=== PATIENT | male | born 1970 | race Caucasian/White ===

== ENCOUNTER 2017-11-30 00:30 | Inpatient (IN) | payer SELFPAY ==
[~2017-11-30] VITALS: Ht 175.3 cm; Wt 87.8 kg
[2017-11-30 01:20] LABS: BASO # 0.2 x10^3/uL (0.0-0.2); BASO % 0 % (0-3); EOS # 0.1 x10^3/uL (0.0-0.7); EOS % 0 % (0-3); HEMATOCRIT 40.7 % (39.0-53.0); HEMOGLOBIN 14.4 g/dL (13.0-17.5); LYMPH # 1.6 x10^3/uL (1.0-4.8); LYMPH % 5 % (24-48); MEAN CORPUSCULAR HEMOGLOBIN 32 pg (25-35); MEAN CORPUSCULAR HGB CONC 35 g/dL (31-37); MEAN CORPUSCULAR VOLUME 89 fL (79-100); MONO # 1.4 x10^3/uL (0.0-1.1); MONO % 4 % (0-9); NEUT # 32.2 x10^3uL (1.8-7.7); NEUT % 91 % (31-73); PLATELET COUNT 372 x10^3/uL (140-400); RED BLOOD COUNT 4.55 x10^6/uL (4.30-5.70); RED CELL DISTRIBUTION WIDTH 13.3 % (11.5-14.5); WHITE BLOOD COUNT 35.5 x10^3/uL (4.0-11.0)
[2017-11-30 01:26] LABS: CALCIUM 9.8 mg/dL (8.5-10.1); GFR 80.8; POTASSIUM 3.2 mmol/L (3.5-5.1)
[2017-11-30] MEDS ORDERED: VANCOMYCIN 2 GM in IV NORMAL SALINE 500ML BAG 500 ML IV ONE (01:30)
[2017-11-30] MEDS ORDERED: ONDANSETRON PF 4 MG/2 ML VIAL. IV ONE (01:30)
[2017-11-30] MEDS ORDERED: IV NORMAL SALINE 1000ML BAG 1,000 ML IV ONE ×3 (01:30→02:00)
[2017-11-30] MEDS ORDERED: fentaNYL PF VIAL 100 MCG/2 ML VIAL IM ONE (01:30)
[2017-11-30 01:31] LABS: ALBUMIN 3.4 g/dL (3.4-5.0); ALBUMIN/GLOBULIN RATIO 0.8 (1.0-1.7); TOTAL BILIRUBIN 0.4 mg/dL (0.2-1.0); TOTAL PROTEIN 7.9 g/dL (6.4-8.2)
[2017-11-30 01:42] LABS: % BANDS 6 % (0-9); % LYMPHS 5 % (24-48); % MONOS 3 % (0-10); % SEGS 86 % (35-66); PLT ESTIMATE ADEQUATE (ADEQUATE); TOXIC GRANULATION SLIGHT
[2017-11-30] MEDS ORDERED: PIP/TAZO PER PHARMACY MC PRN (01:45)
[2017-11-30] MEDS ORDERED: PIPERACILLIN/TAZOBACTAM 4.5 GM in IV NORMAL SALINE 100ML 100 ML IV ONE (02:00)
--- NOTE | 2017-11-30 02:09 | PHYS DOC ---
Past Medical History Past Medical History: Hypertension Past Surgical History: Other Additional Past Surgical Histo: ORBITAL SX Additional Information: 1 PPD Alcohol Use: Rarely Drug Use: None Adult General Chief Complaint Chief Complaint: Cellulitis HPI HPI Patient is a 47 year old male since with redness, swelling, with open weeping lesions to left lower extremity, below calf region. Symptoms began over a week ago. Patient states he has been itching and scratching region. Reports fever, chills sweats and nausea. Patient's tachycardic and febrile in the emergency department. Denies history of MRSA, cellulitis diabetes. No other acute symptoms or complaints. [] Review of Systems Review of Systems ROS as per HPI All other systems were reviewed and found to be within normal limits, except as documented in this note. Current Medications Current Medications Current Medications Medications (Trade) Dose Ordered Sig/Lety Start Time Stop Time Status Last Admin Dose Admin Fentanyl Citrate (Fentanyl 2ml Vial) 75 mcg 1X ONCE 11/30/17 01:30 11/30/17 01:31 DC 11/30/17 01:16 75 MCG Ondansetron HCl (Zofran) 4 mg 1X ONCE 11/30/17 01:30 11/30/17 01:31 DC 11/30/17 01:16 4 MG Piperacillin Sod/ Tazobactam Sod (Zosyn Per Pharmacy) 1 each PRN DAILY PRN 11/30/17 01:45 Piperacillin Sod/ Tazobactam Sod 4.5 gm/Sodium Chloride 100 ml @ 200 mls/hr 1X ONCE 11/30/17 02:00 11/30/17 02:29 Sodium Chloride 1,000 ml @ 1,000 mls/hr 1X ONCE 11/30/17 02:00 11/30/17 02:59 Vancomycin HCl 2 gm/Sodium Chloride 500 ml @ 250 mls/hr 1X ONCE 11/30/17 01:30 11/30/17 03:29 11/30/17 01:15 250 MLS/HR Allergies Allergies Allergies Coded Allergies Type Severity Reaction Last Updated Verified No Known Drug Allergies 08/18/13 No Physical Exam Physical Exam Constitutional: Well developed, well nourished, no acute distress, non-toxic appearance. [] HENT: Normocephalic, atraumatic, bilateral external ears normal, oropharynx moist, no oral exudates, nose normal. [] Eyes: PERRLA, EOMI, conjunctiva normal, no discharge. [] Neck: Normal range of motion, no tenderness, supple, no stridor. [] Cardiovascular:Tachycardia [] Lungs & Thorax: Bilateral breath sounds clear to auscultation [] Abdomen: Bowel sounds normal, soft, no tenderness. [] Skin: Warm, dry, no erythema, no rash. [] Back: No tenderness, no CVA tenderness. [] Extremities: No tenderness, tenderness, swelling, redness with multiple superficial weeping ulcers to left posterior distal leg. No soft tissue sloughing. Swelling extends from Region to ankle. [] Neurologic: Alert and oriented X 3, normal motor function, normal sensory function, no focal deficits noted. [] Psychologic: Affect normal, judgement normal, mood normal. [] Current Patient Data Vital Signs Vital Signs Date Time Temp Pulse Resp B/P (MAP) Pulse Ox O2 Delivery O2 Flow Rate FiO2 11/30/17 01:16 31 96 Room Air 11/30/17 00:46 98.7 135 128/96 (107) 98.7 Lab Values Laboratory Tests Test 11/30/17 01:04 White Blood Count 35.5 x10^3/uL (4.0-11.0) H Red Blood Count 4.55 x10^6/uL (4.30-5.70) Hemoglobin 14.4 g/dL (13.0-17.5) Hematocrit 40.7 % (39.0-53.0) Mean Corpuscular Volume 89 fL (79-100) Mean Corpuscular Hemoglobin 32 pg (25-35) Mean Corpuscular Hemoglobin Concent 35 g/dL (31-37) Red Cell Distribution Width 13.3 % (11.5-14.5) Platelet Count 372 x10^3/uL (140-400) Neutrophils (%) (Auto) 91 % (31-73) H Lymphocytes (%) (Auto) 5 % (24-48) L Monocytes (%) (Auto) 4 % (0-9) Eosinophils (%) (Auto) 0 % (0-3) Basophils (%) (Auto) 0 % (0-3) Neutrophils # (Auto) 32.2 x10^3uL (1.8-7.7) H Lymphocytes # (Auto) 1.6 x10^3/uL (1.0-4.8) Monocytes # (Auto) 1.4 x10^3/uL (0.0-1.1) H Eosinophils # (Auto) 0.1 x10^3/uL (0.0-0.7) Basophils # (Auto) 0.2 x10^3/uL (0.0-0.2) Segmented Neutrophils % 86 % (35-66) H Band Neutrophils % 6 % (0-9) Lymphocytes % 5 % (24-48) L Monocytes % 3 % (0-10) Toxic Granulation Slight Platelet Estimate Adequate (ADEQUATE) Sodium Level 139 mmol/L (136-145) Potassium Level 3.2 mmol/L (3.5-5.1) L Chloride Level 101 mmol/L (98-107) Carbon Dioxide Level 27 mmol/L (21-32) Anion Gap 11 (6-14) Blood Urea Nitrogen 13 mg/dL (8-26) Creatinine 1.0 mg/dL (0.7-1.3) Estimated GFR (Cockcroft-Gault) 80.8 BUN/Creatinine Ratio 13 (6-20) Glucose Level 106 mg/dL (70-99) H Calcium Level 9.8 mg/dL (8.5-10.1) Total Bilirubin 0.4 mg/dL (0.2-1.0) Aspartate Amino Transferase (AST) 16 U/L (15-37) Alanine Aminotransferase (ALT) 37 U/L (16-63) Alkaline Phosphatase 117 U/L (46-116) H C-Reactive Protein, Quantitative 34.0 mg/L (0-3.3) H Total Protein 7.9 g/dL (6.4-8.2) Albumin 3.4 g/dL (3.4-5.0) Albumin/Globulin Ratio 0.8 (1.0-1.7) L Laboratory Tests 11/30/17 01:04 Laboratory Tests 11/30/17 01:04 EKG EKG [] Radiology/Procedures Radiology/Procedures [XR Tib/fib: No gas appreciated in the soft tissue] Course & Med Decision Making Course & Med Decision Making Pertinent Labs and Imaging studies reviewed. (See chart for details) Sepsis with Left leg soft tissue infection. IVF, IV abx started. BP stable. Dr. Amezquita to admit. Courtesy bridge orders written.] Dragon Disclaimer Dragon Disclaimer This electronic medical record was generated, in whole or in part, using a voice recognition dictation system. Departure Departure Impression: Primary Impression: Left leg cellulitis Additional Impression: Sepsis Disposition: ADMITTED INPATIENT Admitting Physician: Other () Condition: IMPROVED Referrals: NON,STAFF (PCP) Problem Qualifiers PAL BAEZA DO Nov 30, 2017 02:09
[2017-11-30] MEDS ORDERED: levOFLOXacin PER PHARMACY. MC PRN (02:45)
[2017-11-30] MEDS ORDERED: ONDANSETRON PF 4 MG/2 ML VIAL. IV PRN (02:45)
[2017-11-30] MEDS ORDERED: MORPHINE SULFATE 4 MG/ML VIAL. IV PRN (02:45)
[2017-11-30 03:56] VITALS: BP 130/71
[2017-11-30] MEDS: VANCOMYCIN PER PHARMACY MC PRN ×2 (04:02→14:08)
[2017-11-30 07:36] VITALS: BP 109/59
--- NOTE | 2017-11-30 08:35 | RAD ---
Examination: 2 views of the left tibia and fibula HISTORY: History of lower leg infection COMPARISON: None available FINDINGS: The alignment of the tibia and fibula grossly appears unremarkable. There is no acute fracture or dislocation identified. Mild soft tissue swelling identified in the lower leg. IMPRESSION: 1. No acute osseous findings. 2. Mild soft tissue swelling identified in the lower leg likely secondary to edema or cellulitis. Electronically signed by: Bartolome Barry MD (11/30/2017 8:31 AM) [facility]
[2017-11-30] MEDS: IV NORMAL SALINE 1000ML BAG 1,000 ML IV SCH ×4 (09:11→19:44)
[2017-11-30] MEDS: PIPERACILLIN/TAZOBACTAM 3.375 GM in IV NORMAL SALINE 50ML 50 ML IV SCH ×3 (09:37→20:37)
[2017-11-30] MEDS: LACTOBACILLUS RHAMNOSUS GG 1 CAPSULE. PO SCH ×2 (09:37→20:37)
--- NOTE | 2017-11-30 11:18 | PDOC1 ---
History and Physical Date of Admission Date of Admission 11/30/17 Identification/Chief Complaint Chief Complaint cellulitis Source Source: Chart review, Patient History of Present Illness History of Present Illness HPI Patient is a 47 year old male presented to ER with redness, swelling, with open weeping lesions to left lower extremity, below calf region. Symptoms began over a week ago. Patient states he has been itching and scratching region. Reports fever, chills sweats and nausea. Patient's tachycardic and febrile in the emergency department. Denies history of MRSA, cellulitis or diabetes no bites no travel , he looked ill and dehydrated Past Medical History Cardiovascular: HTN Pulmonary: COPD GI: No pertinent hx Heme/Onc: No pertinent hx Hepatobiliary: No pertinent hx Psych: Anxiety Infectious disease: No pertinent hx ENT: No pertinent hx Endocrine: No pertinent hx Past Surgical History Past Surgical History: Other (orbital surgery) Social History Smoke: 1 pack per day ALCOHOL: rare Drugs: None Current Problem List Problem List Problems Medical Problems: (1) Left leg cellulitis Status: Acute (2) Sepsis Status: Acute Current Medications Current Medications Current Medications Medications (Trade) Dose Ordered Sig/Lety Start Time Stop Time Status Last Admin Dose Admin Fentanyl Citrate (Fentanyl 2ml Vial) 75 mcg 1X ONCE 11/30/17 01:30 11/30/17 01:31 DC 11/30/17 01:16 75 MCG Influenza Virus Vaccine (Afluria Trivalent [id number] Syringe) 0.5 ml ONCE ONCE 11/30/17 09:00 11/30/17 09:01 DC Lactobacillus Rhamnosus (Culturelle) 1 cap BID 11/30/17 09:00 11/30/17 09:37 1 CAP Levofloxacin/ Dextrose 100 ml @ 100 mls/hr Q24H 12/01/17 05:00 Levofloxacin/ Dextrose (Levaquin Per Pharmacy) 1 each PRN DAILY PRN 11/30/17 02:45 Morphine Sulfate (Morphine Sulfate) 4 mg PRN Q2HR PRN 11/30/17 02:45 12/01/17 02:44 Ondansetron HCl (Zofran) 4 mg PRN Q8HRS PRN 11/30/17 02:45 12/01/17 02:44 Piperacillin Sod/ Tazobactam Sod (Zosyn Per Pharmacy) 1 each PRN DAILY PRN 11/30/17 01:45 Piperacillin Sod/ Tazobactam Sod 3.375 gm/Sodium Chloride 50 ml @ 100 mls/hr Q6HRS 11/30/17 06:00 11/30/17 09:37 100 MLS/HR Piperacillin Sod/ Tazobactam Sod 4.5 gm/Sodium Chloride 100 ml @ 200 mls/hr 1X ONCE 11/30/17 02:00 11/30/17 02:29 DC 11/30/17 02:37 200 MLS/HR Sodium Chloride 1,000 ml @ 150 mls/hr Q6H40M 11/30/17 02:31 12/01/17 02:30 11/30/17 09:11 150 MLS/HR Vancomycin HCl (Vanco Per Pharmacy) 1 each PRN DAILY PRN 11/30/17 02:45 11/30/17 04:02 1 EACH Vancomycin HCl (Vancomycin Trough Level) 1 each 1X ONCE 12/01/17 12:30 12/01/17 12:31 Vancomycin HCl 1.25 gm/Sodium Chloride 250 ml @ 167 mls/hr Q12H 11/30/17 13:00 Cancel Vancomycin HCl 1.5 gm/Sodium Chloride 500 ml @ 250 mls/hr Q12H 11/30/17 13:00 Vancomycin HCl 2 gm/Sodium Chloride 500 ml @ 250 mls/hr 1X ONCE 11/30/17 01:30 11/30/17 03:29 DC 11/30/17 01:15 250 MLS/HR Allergies Allergies Allergies Coded Allergies Type Severity Reaction Last Updated Verified No Known Drug Allergies 08/18/13 No ROS Review of System CONSTITUTIONAL: + fever and chills EYES: No recent changes SKIN: erythema and swelling oozing LLE below knee CARDIOVASCULAR: No chest pain, syncope, palpitations, RESPIRATORY: No SOB or cough GASTROINTESTINAL: No nausea, vomiting or abdominal pain, + decrease appetite NEUROLOGICAL: No headaches o+weakness ENDOCRINE: + chills GENITOURINARY: No urgency or frequency of urination MUSCULOSKELETAL: No back pain or joint pain Physical Exam Physical Exam GEN.: No apparent distress. Alert and oriented. HEENT: Head is normocephalic, atraumatic NECK: Supple. LUNGS: Clear to auscultation. HEART: RRR, S1, S2 present. Peripheral pulses intact ABDOMEN: Soft, nontender. Positive bowel sounds. EXTREMITIES: swelling oozing, erythema LLE. NEUROLOGIC: Normal speech, normal tone PSYCHIATRIC: Normal affect, normal mood. SKIN: No ulcerations Vitals Vitals Vital Signs Date Time Temp Pulse Resp B/P (MAP) Pulse Ox O2 Delivery O2 Flow Rate FiO2 11/30/17 08:00 Room Air 11/30/17 07:36 99.3 76 18 109/59 (76) 91 99.3 Labs Labs Laboratory Tests Test 11/30/17 01:04 White Blood Count 35.5 x10^3/uL (4.0-11.0) Red Blood Count 4.55 x10^6/uL (4.30-5.70) Hemoglobin 14.4 g/dL (13.0-17.5) Hematocrit 40.7 % (39.0-53.0) Mean Corpuscular Volume 89 fL (79-100) Mean Corpuscular Hemoglobin 32 pg (25-35) Mean Corpuscular Hemoglobin Concent 35 g/dL (31-37) Red Cell Distribution Width 13.3 % (11.5-14.5) Platelet Count 372 x10^3/uL (140-400) Neutrophils (%) (Auto) 91 % (31-73) Lymphocytes (%) (Auto) 5 % (24-48) Monocytes (%) (Auto) 4 % (0-9) Eosinophils (%) (Auto) 0 % (0-3) Basophils (%) (Auto) 0 % (0-3) Neutrophils # (Auto) 32.2 x10^3uL (1.8-7.7) Lymphocytes # (Auto) 1.6 x10^3/uL (1.0-4.8) Monocytes # (Auto) 1.4 x10^3/uL (0.0-1.1) Eosinophils # (Auto) 0.1 x10^3/uL (0.0-0.7) Basophils # (Auto) 0.2 x10^3/uL (0.0-0.2) Segmented Neutrophils % 86 % (35-66) Band Neutrophils % 6 % (0-9) Lymphocytes % 5 % (24-48) Monocytes % 3 % (0-10) Toxic Granulation Slight Platelet Estimate Adequate (ADEQUATE) Sodium Level 139 mmol/L (136-145) Potassium Level 3.2 mmol/L (3.5-5.1) Chloride Level 101 mmol/L (98-107) Carbon Dioxide Level 27 mmol/L (21-32) Anion Gap 11 (6-14) Blood Urea Nitrogen 13 mg/dL (8-26) Creatinine 1.0 mg/dL (0.7-1.3) Estimated GFR (Cockcroft-Gault) 80.8 BUN/Creatinine Ratio 13 (6-20) Glucose Level 106 mg/dL (70-99) Lactic Acid Level 1.4 mmol/L (0.4-2.0) Calcium Level 9.8 mg/dL (8.5-10.1) Total Bilirubin 0.4 mg/dL (0.2-1.0) Aspartate Amino Transf (AST/SGOT) 16 U/L (15-37) Alanine Aminotransferase (ALT/SGPT) 37 U/L (16-63) Alkaline Phosphatase 117 U/L (46-116) Creatine Kinase 87 U/L (39-308) C-Reactive Protein, Quantitative 34.0 mg/L (0-3.3) Total Protein 7.9 g/dL (6.4-8.2) Albumin 3.4 g/dL (3.4-5.0) Albumin/Globulin Ratio 0.8 (1.0-1.7) Laboratory Tests Test 11/30/17 01:04 White Blood Count 35.5 x10^3/uL (4.0-11.0) Red Blood Count 4.55 x10^6/uL (4.30-5.70) Hemoglobin 14.4 g/dL (13.0-17.5) Hematocrit 40.7 % (39.0-53.0) Mean Corpuscular Volume 89 fL (79-100) Mean Corpuscular Hemoglobin 32 pg (25-35) Mean Corpuscular Hemoglobin Concent 35 g/dL (31-37) Red Cell Distribution Width 13.3 % (11.5-14.5) Platelet Count 372 x10^3/uL (140-400) Neutrophils (%) (Auto) 91 % (31-73) Lymphocytes (%) (Auto) 5 % (24-48) Monocytes (%) (Auto) 4 % (0-9) Eosinophils (%) (Auto) 0 % (0-3) Basophils (%) (Auto) 0 % (0-3) Neutrophils # (Auto) 32.2 x10^3uL (1.8-7.7) Lymphocytes # (Auto) 1.6 x10^3/uL (1.0-4.8) Monocytes # (Auto) 1.4 x10^3/uL (0.0-1.1) Eosinophils # (Auto) 0.1 x10^3/uL (0.0-0.7) Basophils # (Auto) 0.2 x10^3/uL (0.0-0.2) Segmented Neutrophils % 86 % (35-66) Band Neutrophils % 6 % (0-9) Lymphocytes % 5 % (24-48) Monocytes % 3 % (0-10) Toxic Granulation Slight Platelet Estimate Adequate (ADEQUATE) Sodium Level 139 mmol/L (136-145) Potassium Level 3.2 mmol/L (3.5-5.1) Chloride Level 101 mmol/L (98-107) Carbon Dioxide Level 27 mmol/L (21-32) Anion Gap 11 (6-14) Blood Urea Nitrogen 13 mg/dL (8-26) Creatinine 1.0 mg/dL (0.7-1.3) Estimated GFR (Cockcroft-Gault) 80.8 BUN/Creatinine Ratio 13 (6-20) Glucose Level 106 mg/dL (70-99) Lactic Acid Level 1.4 mmol/L (0.4-2.0) Calcium Level 9.8 mg/dL (8.5-10.1) Total Bilirubin 0.4 mg/dL (0.2-1.0) Aspartate Amino Transf (AST/SGOT) 16 U/L (15-37) Alanine Aminotransferase (ALT/SGPT) 37 U/L (16-63) Alkaline Phosphatase 117 U/L (46-116) Creatine Kinase 87 U/L (39-308) C-Reactive Protein, Quantitative 34.0 mg/L (0-3.3) Total Protein 7.9 g/dL (6.4-8.2) Albumin 3.4 g/dL (3.4-5.0) Albumin/Globulin Ratio 0.8 (1.0-1.7) VTE Prophylaxis Ordered VTE Prophylaxis Devices: Yes VTE Pharmacological Prophylaxi: Yes Assessment/Plan Assessment/Plan 1-cellulitis LLE 2-sepsis 3- leukocytosis 4-hypokalemia replaced 5-hx HTN cultures, ABx , ID consult, follow lytes and WBC, hydration BARBARA LIMA MD Nov 30, 2017 11:18
[2017-11-30 11:22] VITALS: BP 107/55
[2017-11-30] MEDS ORDERED: POTASSIUM CHLORIDE 20 MEQ TABLET.ER. PO ONE (11:30)
[2017-11-30] MEDS ORDERED: VANCOMYCIN 1.25 GM in IV NORMAL SALINE 250ML 250 ML IV SCH (13:00)
[2017-11-30] MEDS ORDERED: VANCOMYCIN 1.5 GM in IV NORMAL SALINE 500ML BAG 500 ML IV SCH (13:00)
[2017-11-30] MEDS: ACETAMINOPHEN 325 MG TABLET. PO PRN (13:06)
[2017-11-30] MEDS: POTASSIUM CL 20MEQ D5-0.45NACL 1,000 ML IV SCH ×2 (14:38→21:30)
[2017-11-30 15:40] VITALS: BP 110/61
--- NOTE | 2017-11-30 16:06 | PDOC ---
Infectious Disease Note Vital Sign Vital Signs Vital Signs Date Time Temp Pulse Resp B/P (MAP) Pulse Ox O2 Delivery O2 Flow Rate FiO2 11/30/17 11:22 101.7 72 18 107/55 (72) 94 Room Air 101.7 Labs Lab Laboratory Tests Test 11/30/17 01:04 White Blood Count 35.5 x10^3/uL (4.0-11.0) Red Blood Count 4.55 x10^6/uL (4.30-5.70) Hemoglobin 14.4 g/dL (13.0-17.5) Hematocrit 40.7 % (39.0-53.0) Mean Corpuscular Volume 89 fL (79-100) Mean Corpuscular Hemoglobin 32 pg (25-35) Mean Corpuscular Hemoglobin Concent 35 g/dL (31-37) Red Cell Distribution Width 13.3 % (11.5-14.5) Platelet Count 372 x10^3/uL (140-400) Neutrophils (%) (Auto) 91 % (31-73) Lymphocytes (%) (Auto) 5 % (24-48) Monocytes (%) (Auto) 4 % (0-9) Eosinophils (%) (Auto) 0 % (0-3) Basophils (%) (Auto) 0 % (0-3) Neutrophils # (Auto) 32.2 x10^3uL (1.8-7.7) Lymphocytes # (Auto) 1.6 x10^3/uL (1.0-4.8) Monocytes # (Auto) 1.4 x10^3/uL (0.0-1.1) Eosinophils # (Auto) 0.1 x10^3/uL (0.0-0.7) Basophils # (Auto) 0.2 x10^3/uL (0.0-0.2) Segmented Neutrophils % 86 % (35-66) Band Neutrophils % 6 % (0-9) Lymphocytes % 5 % (24-48) Monocytes % 3 % (0-10) Toxic Granulation Slight Platelet Estimate Adequate (ADEQUATE) Sodium Level 139 mmol/L (136-145) Potassium Level 3.2 mmol/L (3.5-5.1) Chloride Level 101 mmol/L (98-107) Carbon Dioxide Level 27 mmol/L (21-32) Anion Gap 11 (6-14) Blood Urea Nitrogen 13 mg/dL (8-26) Creatinine 1.0 mg/dL (0.7-1.3) Estimated GFR (Cockcroft-Gault) 80.8 BUN/Creatinine Ratio 13 (6-20) Glucose Level 106 mg/dL (70-99) Lactic Acid Level 1.4 mmol/L (0.4-2.0) Calcium Level 9.8 mg/dL (8.5-10.1) Total Bilirubin 0.4 mg/dL (0.2-1.0) Aspartate Amino Transf (AST/SGOT) 16 U/L (15-37) Alanine Aminotransferase (ALT/SGPT) 37 U/L (16-63) Alkaline Phosphatase 117 U/L (46-116) Creatine Kinase 87 U/L (39-308) C-Reactive Protein, Quantitative 34.0 mg/L (0-3.3) Total Protein 7.9 g/dL (6.4-8.2) Albumin 3.4 g/dL (3.4-5.0) Albumin/Globulin Ratio 0.8 (1.0-1.7) Objective Assessment Sepsis POA Cellulitis with possible abscess of left lower extremity -CK 87, CRP 34.0 Fever Leukocytosis HTN Plan Plan of Care Continue vanc and Zosyn d/c Levaquin BC x 2 Check procalcitonin level Obtain wound culture CT w/o left leg r/o deep tissue infection Monitor labs/temp and renal function closely Supportive care D/w RN D/w Dr. Gregg D/w Dr. Joiner Thank you [id number] Pt seen and examined. Chart reviewed in detail. Case discussed with [employer]. Agree with above plan BETH VELAZQUEZ APRN Nov 30, 2017 16:06 ROMEL JOINER MD Nov 30, 2017 18:45
--- NOTE | 2017-11-30 18:53 | RAD ---
CT scan of the left leg without contrast 11/30/2017 CLINICAL HISTORY: Redness and swelling to mid/lower leg. TECHNIQUE: Unenhanced, contiguous, 0.625 mm axial sections were obtained through the left leg from the inferior left knee through the left ankle joint. 2 mm reconstructed sagittal, axial and coronal images were obtained. One or more of the following individualized dose reduction techniques were utilized for this study: 1. Automated exposure control. 2. Adjustment of the mA and/or kV according to patient size. 3. Use of iterative reconstruction technique. FINDINGS: Soft tissue swelling and increased density is seen within the soft tissues of the inferior aspect of the left lower leg extending to the left ankle. These findings likely reflect a cellulitis. No abnormal fluid collection is seen to suggest evidence of an abscess. No subcutaneous emphysema is noted. There is no CT evidence of osteomyelitis. IMPRESSION: Findings are seen consistent with a cellulitis as outlined above. No abscess is seen. Electronically signed by: Carmine Le MD (11/30/2017 6:50 PM) [facility]
[2017-11-30 19:11] VITALS: BP 149/90
[2017-11-30 23:42] VITALS: BP 145/85
[2017-12-01] MEDS: PIPERACILLIN/TAZOBACTAM 3.375 GM in IV NORMAL SALINE 50ML 50 ML IV SCH ×4 (00:40→16:29)
[2017-12-01 03:19] VITALS: BP 136/79
--- NOTE | 2017-12-01 04:11 | CONS ---
DATE OF CONSULTATION: 11/30/2017 REFERRING PHYSICIAN: Dr. Gregg. REASON FOR CONSULTATION: Cellulitis of left lower extremity. HISTORY OF PRESENT ILLNESS: This patient is a 47-year-old male who about a week or so ago was working out in the yard and mowing the lawn. The next day, he noticed a small pimple develop on his left lower leg, which opened up and drained. Over the next few days, he noticed 3 or 4 new pimple-like lesions appear, open up, and drain as well. His leg became increasingly painful, red, and swollen with severe itching. He says he had fevers, chills and took ibuprofen for relief. He denies injury, insect bites or pet exposure. He was [place] [address], CK 87, and CRP 34.0. An x-ray tibia/fibula showed mild soft tissue swelling. He was dosed with vancomycin, Zosyn, and levofloxacin. ID has been asked to consult for further evaluation and antibiotic management. PAST MEDICAL HISTORY: Hypertension. PAST SURGICAL HISTORY: Orbital surgery. FAMILY HISTORY: Noncontributory. SOCIAL HISTORY: He is a smoker. ALLERGIES: No known drug allergies. MEDICATIONS: Vancomycin, Zosyn, levofloxacin. Other medications are available and have been reviewed on the MAR. REVIEW OF SYSTEMS: The patient complains of ongoing pain and itchiness, though little bit better since admission. He is running a fever of 101. He denies sweats, body aches or joint pains. Denies shortness of air, cough or chest discomfort. Denies nausea, vomiting or diarrhea. Denies dysuria. Denies headache, sinus congestion or sore throat. PHYSICAL EXAMINATION: GENERAL: The patient is resting quietly. VITAL SIGNS: Temperature 101.7, blood pressure 107/55, heart rate 72, respiratory rate 18, pulse oximetry is 94% on room air. BMI 28. HEENT: Normal conjunctivae. Oral mucosa is pink and moist. NECK: Supple. LUNGS: Clear to auscultation. HEART: S1, S2. ABDOMEN: Bowel sounds active, soft, nontender. EXTREMITIES: Unremarkable except for left lower extremity edema. The lateral/posterior area of the lower left leg has several areas of ulceration, some purple discoloration with warmth and drainage. Distal pulses palpable. SKIN: Warm without rash. NEUROLOGIC: Arouses easily to name, responds appropriately and is sleepy. LABORATORY DATA: WBC 35.5, hemoglobin 14.4, platelet count 372,000, segs 86%, bands 6%. Sodium 139, potassium 3.2, creatinine 1.0, BUN 13, glucose 106. Lactic acid 1.4, total bilirubin 0.4, AST 16, ALT 37. Creatinine kinase 87. CRP 34.0, albumin 3.4. IMAGING DATA: Tibia/fibula x-ray showed mild soft tissue swelling identified in the lower leg secondary to edema or cellulitis. No acute osseous findings. IMPRESSION: 1. Sepsis, present on admission. 2. Cellulitis with possible abscess of left lower extremity. 3. Fever. 4. Leukocytosis. 5. Hypertension. PLAN: Continue the vancomycin and Zosyn. We will discontinue the Levaquin. Obtain blood cultures times 2 and a procalcitonin level. Also obtain an anaerobic-aerobic wound culture and we will get a CT without contrast of the lower leg to rule out deep tissue infection. Monitor laboratory values, temperature, and renal function closely. Supportive care. Thank you, Dr. Gregg, for asking us to participate in this patient's care. Should you have further questions or concerns, please call. ROMEL MATSON MD DR: YURIDIA/rom JOB#: [id number] / [id number]
[2017-12-01 04:34] LABS: BASO # 0.1 x10^3/uL (0.0-0.2); BASO % 1 % (0-3); EOS # 0.2 x10^3/uL (0.0-0.7); EOS % 1 % (0-3); HEMATOCRIT 35.2 % (39.0-53.0); LYMPH % 15 % (24-48); MEAN CORPUSCULAR HEMOGLOBIN 31 pg (25-35); MEAN CORPUSCULAR HGB CONC 34 g/dL (31-37); MEAN CORPUSCULAR VOLUME 91 fL (79-100); MONO # 1.2 x10^3/uL (0.0-1.1); MONO % 6 % (0-9); NEUT # 16.2 x10^3uL (1.8-7.7); NEUT % 78 % (31-73); PLATELET COUNT 262 x10^3/uL (140-400); RED BLOOD COUNT 3.88 x10^6/uL (4.30-5.70); RED CELL DISTRIBUTION WIDTH 13.6 % (11.5-14.5); WHITE BLOOD COUNT 20.8 x10^3/uL (4.0-11.0)
[2017-12-01 04:53] LABS: ALBUMIN 2.3 g/dL (3.4-5.0); ALBUMIN/GLOBULIN RATIO 0.6 (1.0-1.7); CALCIUM 8.9 mg/dL (8.5-10.1); GFR 80.8; POTASSIUM 3.8 mmol/L (3.5-5.1); TOTAL BILIRUBIN 0.3 mg/dL (0.2-1.0); TOTAL PROTEIN 6.3 g/dL (6.4-8.2)
[2017-12-01 07:00] VITALS: BP 148/89
[2017-12-01] MEDS: LACTOBACILLUS RHAMNOSUS GG 1 CAPSULE. PO SCH ×2 (08:41→19:55)
[2017-12-01] MEDS: POTASSIUM CL 20MEQ D5-0.45NACL 1,000 ML IV SCH ×2 (08:43→16:29)
[2017-12-01 11:00] VITALS: BP 142/88
--- NOTE | 2017-12-01 12:31 | PDOC ---
Infectious Disease Note Subjective Subjective cont to have significant pain though redness less ROS ROS no n/v/d/sob/fever Vital Sign Vital Signs Vital Signs Date Time Temp Pulse Resp B/P (MAP) Pulse Ox O2 Delivery O2 Flow Rate FiO2 12/01/17 11:00 98.6 85 18 142/88 (106) 98 Room Air 98.6 Physical Exam PHYSICAL EXAM GENERAL: The patient is resting quietly. VITAL SIGNS: stable HEENT: Normal conjunctivae. Oral mucosa is pink and moist. NECK: Supple. LUNGS: Clear to auscultation. HEART: S1, S2. ABDOMEN: Bowel sounds active, soft, nontender. EXTREMITIES: Unremarkable except for left lower extremity edema. The lateral/posterior area of the lower left leg has several areas of ulceration, some purple discoloration with warmth and drainage. Distal pulses palpable. SKIN: Warm without rash. NEUROLOGIC: Arouses easily to name, responds appropriately and is sleepy. Labs Lab Laboratory Tests Test 12/01/17 04:15 White Blood Count 20.8 x10^3/uL (4.0-11.0) Red Blood Count 3.88 x10^6/uL (4.30-5.70) Hemoglobin 12.0 g/dL (13.0-17.5) Hematocrit 35.2 % (39.0-53.0) Mean Corpuscular Volume 91 fL (79-100) Mean Corpuscular Hemoglobin 31 pg (25-35) Mean Corpuscular Hemoglobin Concent 34 g/dL (31-37) Red Cell Distribution Width 13.6 % (11.5-14.5) Platelet Count 262 x10^3/uL (140-400) Neutrophils (%) (Auto) 78 % (31-73) Lymphocytes (%) (Auto) 15 % (24-48) Monocytes (%) (Auto) 6 % (0-9) Eosinophils (%) (Auto) 1 % (0-3) Basophils (%) (Auto) 1 % (0-3) Neutrophils # (Auto) 16.2 x10^3uL (1.8-7.7) Lymphocytes # (Auto) 3.0 x10^3/uL (1.0-4.8) Monocytes # (Auto) 1.2 x10^3/uL (0.0-1.1) Eosinophils # (Auto) 0.2 x10^3/uL (0.0-0.7) Basophils # (Auto) 0.1 x10^3/uL (0.0-0.2) Erythrocyte Sedimentation Rate 57 (0-15) Sodium Level 138 mmol/L (136-145) Potassium Level 3.8 mmol/L (3.5-5.1) Chloride Level 104 mmol/L (98-107) Carbon Dioxide Level 26 mmol/L (21-32) Anion Gap 8 (6-14) Blood Urea Nitrogen 8 mg/dL (8-26) Creatinine 1.0 mg/dL (0.7-1.3) Estimated GFR (Cockcroft-Gault) 80.8 BUN/Creatinine Ratio 8 (6-20) Glucose Level 107 mg/dL (70-99) Calcium Level 8.9 mg/dL (8.5-10.1) Total Bilirubin 0.3 mg/dL (0.2-1.0) Aspartate Amino Transf (AST/SGOT) 13 U/L (15-37) Alanine Aminotransferase (ALT/SGPT) 23 U/L (16-63) Alkaline Phosphatase 81 U/L (46-116) Total Protein 6.3 g/dL (6.4-8.2) Albumin 2.3 g/dL (3.4-5.0) Albumin/Globulin Ratio 0.6 (1.0-1.7) Objective Assessment 1. Sepsis, present on admission. 2. Cellulitis with possible abscess of left lower extremity. 3. Fever. 4. Leukocytosis. 5. Hypertension. Plan Plan of Care Continue vanc and Zosyn BC x 2 Check procalcitonin level Obtain wound culture CT noted Monitor labs/temp and renal function closely Supportive care D/w MATT HURD MD Dec 01, 2017 12:31
[2017-12-01] MEDS: ACETAMINOPHEN 325 MG TABLET. PO PRN (12:38)
[2017-12-01 14:59] VITALS: BP 143/86
[2017-12-01 19:38] VITALS: BP 130/78
[2017-12-01] MEDS: oxyCODONE/APAP 5/325 1 TAB TABLET PO PRN (20:55)
[2017-12-01] MEDS ORDERED: KETOROLAC 15 MG/ML VIAL. IV PRN (22:00)
--- NOTE | 2017-12-01 22:05 | PDOC ---
PROGRESS NOTES Chief Complaint Chief Complaint Left leg pain Cellulitis History of Present Illness History of Present Illness Admitted with left leg pain swelling, fever and chills, leukocytosis, admitted for sepsis 2/2 cellulitis. Improved redness with compression and antibiotics. Has increase pain today and cannot even lower his leg out of bed. some associated nausea as well now. 1-cellulitis LLE - will add pain control today and compression wrap with wound care 2-sepsis - lactate improved after fluids and antibiotics 3- leukocytosis improving 4-hypokalemia - replaced, will check mag 5-hx HTN cultures, ABx , ID consult, follow lytes and WBC, hydration Vitals Vitals Vital Signs Date Time Temp Pulse Resp B/P (MAP) Pulse Ox O2 Delivery O2 Flow Rate FiO2 12/01/17 20:55 Room Air 12/01/17 19:38 98.2 78 20 130/78 (95) 98 98.2 Physical Exam Physical Exam GENERAL: The patient is resting quietly. VITAL SIGNS: stable HEENT: Normal conjunctivae. Oral mucosa is pink and moist. NECK: Supple. LUNGS: Clear to auscultation. HEART: S1, S2. ABDOMEN: Bowel sounds active, soft, nontender. EXTREMITIES: Unremarkable except for left lower extremity edema. The lateral/posterior area of the lower left leg has several areas of ulceration, some purple discoloration with warmth and drainage. Distal pulses palpable. SKIN: Warm without rash. NEUROLOGIC: Arouses easily to name, responds appropriately and is sleepy. Labs LABS Laboratory Tests Test 12/01/17 04:15 White Blood Count 20.8 x10^3/uL (4.0-11.0) Red Blood Count 3.88 x10^6/uL (4.30-5.70) Hemoglobin 12.0 g/dL (13.0-17.5) Hematocrit 35.2 % (39.0-53.0) Mean Corpuscular Volume 91 fL (79-100) Mean Corpuscular Hemoglobin 31 pg (25-35) Mean Corpuscular Hemoglobin Concent 34 g/dL (31-37) Red Cell Distribution Width 13.6 % (11.5-14.5) Platelet Count 262 x10^3/uL (140-400) Neutrophils (%) (Auto) 78 % (31-73) Lymphocytes (%) (Auto) 15 % (24-48) Monocytes (%) (Auto) 6 % (0-9) Eosinophils (%) (Auto) 1 % (0-3) Basophils (%) (Auto) 1 % (0-3) Neutrophils # (Auto) 16.2 x10^3uL (1.8-7.7) Lymphocytes # (Auto) 3.0 x10^3/uL (1.0-4.8) Monocytes # (Auto) 1.2 x10^3/uL (0.0-1.1) Eosinophils # (Auto) 0.2 x10^3/uL (0.0-0.7) Basophils # (Auto) 0.1 x10^3/uL (0.0-0.2) Erythrocyte Sedimentation Rate 57 (0-15) Sodium Level 138 mmol/L (136-145) Potassium Level 3.8 mmol/L (3.5-5.1) Chloride Level 104 mmol/L (98-107) Carbon Dioxide Level 26 mmol/L (21-32) Anion Gap 8 (6-14) Blood Urea Nitrogen 8 mg/dL (8-26) Creatinine 1.0 mg/dL (0.7-1.3) Estimated GFR (Cockcroft-Gault) 80.8 BUN/Creatinine Ratio 8 (6-20) Glucose Level 107 mg/dL (70-99) Calcium Level 8.9 mg/dL (8.5-10.1) Total Bilirubin 0.3 mg/dL (0.2-1.0) Aspartate Amino Transf (AST/SGOT) 13 U/L (15-37) Alanine Aminotransferase (ALT/SGPT) 23 U/L (16-63) Alkaline Phosphatase 81 U/L (46-116) Total Protein 6.3 g/dL (6.4-8.2) Albumin 2.3 g/dL (3.4-5.0) Albumin/Globulin Ratio 0.6 (1.0-1.7) Review of Systems Review of Systems RESPIRATORY: Neg SOB,wheeze,cough,sputum,hemoptysis or bronchitis CARDIOVASCULAR: Neg chest pain,palpitations,dyspnea on exertion,orthopnea, paroxysmal nocturnal dyspnea or edema GASTROINTESTINAL: Neg Appetite changes,nausea,vomiting,or diarrhea,indigestion, dysphagia,change in bowel movements, or abdominal pain. GENITOURINARY: Neg Urinary frequency, hesitancy, urgency, polyuria, dysuria, hematuria, nocturia, or incontinence. HEMATOLOGIC/LYMPHATIC: Neg Anemia,bleeding tendency MUSCULOSKELETAL: Neg New myalgias,bone pain,joint pain,swelling or stiffness and has had no change in gait. PSYCHIATRIC: Neg depression,personality changes,anxiety. Assessment and Plan Assessmemt and Plan Problems Medical Problems: (1) Left leg cellulitis Status: Acute (2) Sepsis Status: Acute Comment Review of Relevant I have reviewed the following items alem (where applicable) has been applied. Labs Laboratory Tests Test 11/30/17 01:04 12/01/17 04:15 White Blood Count 35.5 x10^3/uL (4.0-11.0) 20.8 x10^3/uL (4.0-11.0) Red Blood Count 4.55 x10^6/uL (4.30-5.70) 3.88 x10^6/uL (4.30-5.70) Hemoglobin 14.4 g/dL (13.0-17.5) 12.0 g/dL (13.0-17.5) Hematocrit 40.7 % (39.0-53.0) 35.2 % (39.0-53.0) Mean Corpuscular Volume 89 fL (79-100) 91 fL (79-100) Mean Corpuscular Hemoglobin 32 pg (25-35) 31 pg (25-35) Mean Corpuscular Hemoglobin Concent 35 g/dL (31-37) 34 g/dL (31-37) Red Cell Distribution Width 13.3 % (11.5-14.5) 13.6 % (11.5-14.5) Platelet Count 372 x10^3/uL (140-400) 262 x10^3/uL (140-400) Neutrophils (%) (Auto) 91 % (31-73) 78 % (31-73) Lymphocytes (%) (Auto) 5 % (24-48) 15 % (24-48) Monocytes (%) (Auto) 4 % (0-9) 6 % (0-9) Eosinophils (%) (Auto) 0 % (0-3) 1 % (0-3) Basophils (%) (Auto) 0 % (0-3) 1 % (0-3) Neutrophils # (Auto) 32.2 x10^3uL (1.8-7.7) 16.2 x10^3uL (1.8-7.7) Lymphocytes # (Auto) 1.6 x10^3/uL (1.0-4.8) 3.0 x10^3/uL (1.0-4.8) Monocytes # (Auto) 1.4 x10^3/uL (0.0-1.1) 1.2 x10^3/uL (0.0-1.1) Eosinophils # (Auto) 0.1 x10^3/uL (0.0-0.7) 0.2 x10^3/uL (0.0-0.7) Basophils # (Auto) 0.2 x10^3/uL (0.0-0.2) 0.1 x10^3/uL (0.0-0.2) Segmented Neutrophils % 86 % (35-66) Band Neutrophils % 6 % (0-9) Lymphocytes % 5 % (24-48) Monocytes % 3 % (0-10) Toxic Granulation Slight Platelet Estimate Adequate (ADEQUATE) Sodium Level 139 mmol/L (136-145) 138 mmol/L (136-145) Potassium Level 3.2 mmol/L (3.5-5.1) 3.8 mmol/L (3.5-5.1) Chloride Level 101 mmol/L (98-107) 104 mmol/L (98-107) Carbon Dioxide Level 27 mmol/L (21-32) 26 mmol/L (21-32) Anion Gap 11 (6-14) 8 (6-14) Blood Urea Nitrogen 13 mg/dL (8-26) 8 mg/dL (8-26) Creatinine 1.0 mg/dL (0.7-1.3) 1.0 mg/dL (0.7-1.3) Estimated GFR (Cockcroft-Gault) 80.8 80.8 BUN/Creatinine Ratio 13 (6-20) 8 (6-20) Glucose Level 106 mg/dL (70-99) 107 mg/dL (70-99) Lactic Acid Level 1.4 mmol/L (0.4-2.0) Calcium Level 9.8 mg/dL (8.5-10.1) 8.9 mg/dL (8.5-10.1) Total Bilirubin 0.4 mg/dL (0.2-1.0) 0.3 mg/dL (0.2-1.0) Aspartate Amino Transf (AST/SGOT) 16 U/L (15-37) 13 U/L (15-37) Alanine Aminotransferase (ALT/SGPT) 37 U/L (16-63) 23 U/L (16-63) Alkaline Phosphatase 117 U/L (46-116) 81 U/L (46-116) Creatine Kinase 87 U/L (39-308) C-Reactive Protein, Quantitative 34.0 mg/L (0-3.3) Total Protein 7.9 g/dL (6.4-8.2) 6.3 g/dL (6.4-8.2) Albumin 3.4 g/dL (3.4-5.0) 2.3 g/dL (3.4-5.0) Albumin/Globulin Ratio 0.8 (1.0-1.7) 0.6 (1.0-1.7) Procalcitonin 0.34 ng/mL (0.00-0.10) Erythrocyte Sedimentation Rate 57 (0-15) Laboratory Tests Test 12/01/17 04:15 White Blood Count 20.8 x10^3/uL (4.0-11.0) Red Blood Count 3.88 x10^6/uL (4.30-5.70) Hemoglobin 12.0 g/dL (13.0-17.5) Hematocrit 35.2 % (39.0-53.0) Mean Corpuscular Volume 91 fL (79-100) Mean Corpuscular Hemoglobin 31 pg (25-35) Mean Corpuscular Hemoglobin Concent 34 g/dL (31-37) Red Cell Distribution Width 13.6 % (11.5-14.5) Platelet Count 262 x10^3/uL (140-400) Neutrophils (%) (Auto) 78 % (31-73) Lymphocytes (%) (Auto) 15 % (24-48) Monocytes (%) (Auto) 6 % (0-9) Eosinophils (%) (Auto) 1 % (0-3) Basophils (%) (Auto) 1 % (0-3) Neutrophils # (Auto) 16.2 x10^3uL (1.8-7.7) Lymphocytes # (Auto) 3.0 x10^3/uL (1.0-4.8) Monocytes # (Auto) 1.2 x10^3/uL (0.0-1.1) Eosinophils # (Auto) 0.2 x10^3/uL (0.0-0.7) Basophils # (Auto) 0.1 x10^3/uL (0.0-0.2) Erythrocyte Sedimentation Rate 57 (0-15) Sodium Level 138 mmol/L (136-145) Potassium Level 3.8 mmol/L (3.5-5.1) Chloride Level 104 mmol/L (98-107) Carbon Dioxide Level 26 mmol/L (21-32) Anion Gap 8 (6-14) Blood Urea Nitrogen 8 mg/dL (8-26) Creatinine 1.0 mg/dL (0.7-1.3) Estimated GFR (Cockcroft-Gault) 80.8 BUN/Creatinine Ratio 8 (6-20) Glucose Level 107 mg/dL (70-99) Calcium Level 8.9 mg/dL (8.5-10.1) Total Bilirubin 0.3 mg/dL (0.2-1.0) Aspartate Amino Transf (AST/SGOT) 13 U/L (15-37) Alanine Aminotransferase (ALT/SGPT) 23 U/L (16-63) Alkaline Phosphatase 81 U/L (46-116) Total Protein 6.3 g/dL (6.4-8.2) Albumin 2.3 g/dL (3.4-5.0) Albumin/Globulin Ratio 0.6 (1.0-1.7) Microbiology 11/30/17 Blood Culture - Preliminary, Resulted NO GROWTH AFTER 1 DAY Medications Current Medications Sodium Chloride 1,000 ml @ 1,000 mls/hr 1X ONCE IV Last administered on at 01:16; Start 11/30/17 at 01:30; Stop 11/30/17 at 02:29; Status DC Vancomycin HCl 2 gm/Sodium Chloride 500 ml @ 250 mls/hr 1X ONCE IV Last administered on 11/30/17at 01:15; Start 11/30/17 at 01:30; Stop 11/30/17 at 03:29 ; Status DC Fentanyl Citrate (Fentanyl 2ml Vial) 75 mcg 1X ONCE IM Last administered on at 01:16; Start 11/30/17 at 01:30; Stop 11/30/17 at 01:31; Status DC Ondansetron HCl (Zofran) 4 mg 1X ONCE IV Last administered on 11/30/17at 01:16 ; Start 11/30/17 at 01:30; Stop 11/30/17 at 01:31; Status DC Sodium Chloride 1,000 ml @ 1,000 mls/hr 1X ONCE IV Last administered on at 02:37; Start 11/30/17 at 02:00; Stop 11/30/17 at 02:59; Status DC Sodium Chloride 1,000 ml @ 1,000 mls/hr 1X ONCE IV Last administered on at 03:45; Start 11/30/17 at 02:00; Stop 11/30/17 at 02:59; Status DC Piperacillin Sod/ Tazobactam Sod (Zosyn Per Pharmacy) 1 each PRN DAILY PRN MC SEE COMMENTS; Start 11/30/17 at 01:45 Piperacillin Sod/ Tazobactam Sod 4.5 gm/Sodium Chloride 100 ml @ 200 mls/hr 1X ONCE IV Last administered on 11/30/17at 02:37; Start 11/30/17 at 02:00; Stop 11/30/17 at 02:29; Status DC Vancomycin HCl (Vanco Per Pharmacy) 1 each PRN DAILY PRN MC SEE COMMENTS Last administered on 11/30/17at 14:08; Start 11/30/17 at 02:45; Stop 11/30/17 at 19:37 ; Status DC Ondansetron HCl (Zofran) 4 mg PRN Q8HRS PRN IV NAUSEA/VOMITING 1ST CHOICE; Start 11/30/17 at 02:45; Stop 12/01/17 at 02:44; Status DC Morphine Sulfate (Morphine Sulfate) 4 mg PRN Q2HR PRN IV SEVERE PAIN Last administered on 11/30/17at 20:38; Start 11/30/17 at 02:45; Stop 12/01/17 at 02:44 ; Status DC Sodium Chloride 1,000 ml @ 150 mls/hr Q6H40M IV Last administered on at 15:51; Start 11/30/17 at 02:31; Stop 12/01/17 at 02:30; Status DC Levofloxacin/ Dextrose (Levaquin Per Pharmacy) 1 each PRN DAILY PRN MC SEE COMMENTS; Start 11/30/17 at 02:45; Stop 11/30/17 at 21:14; Status DC Levofloxacin/ Dextrose 100 ml @ 100 mls/hr 1X ONCE IV Last administered on at 05:00; Start 11/30/17 at 03:00; Stop 11/30/17 at 03:59; Status DC Piperacillin Sod/ Tazobactam Sod 3.375 gm/Sodium Chloride 50 ml @ 100 mls/hr Q6HRS IV Last administered on 12/01/17at 16:29; Start 11/30/17 at 06:00 Levofloxacin/ Dextrose 100 ml @ 100 mls/hr Q24H IV ; Start 12/01/17 at 05:00; Stop 12/01/17 at 05:00; Status DC Vancomycin HCl 1.25 gm/Sodium Chloride 250 ml @ 167 mls/hr Q12H IV ; Start at 13:00; Status Cancel Lactobacillus Rhamnosus (Culturelle) 1 cap BID PO Last administered on at 19:55; Start 11/30/17 at 09:00 Vancomycin HCl 1.5 gm/Sodium Chloride 500 ml @ 250 mls/hr Q12H IV Last administered on 11/30/17at 14:38; Start 11/30/17 at 13:00; Stop 11/30/17 at 19:37 ; Status DC Vancomycin HCl (Vancomycin Trough Level) 1 each 1X ONCE MC ; Start 12/01/17 at 12:30; Stop 12/01/17 at 12:31; Status Cancel Influenza Virus Vaccine (Afluria Trivalent 9745-2428 Syringe) 0.5 ml ONCE ONCE VAX IM ; Start 11/30/17 at 09:00; Stop 11/30/17 at 09:01; Status DC Potassium Chloride (Klor-Con) 40 meq 1X ONCE PO Last administered on at 13:06; Start 11/30/17 at 11:30; Stop 11/30/17 at 11:31; Status DC Potassium Chloride/Dextrose/ Sod Cl 1,000 ml @ 100 mls/hr Q10H IV Last administered on 12/01/17at 16:29; Start 11/30/17 at 11:30 Acetaminophen (Tylenol) 650 mg PRN Q6HRS PRN PO fever Last administered on 12/01at 12:38; Start 11/30/17 at 12:00 Linezolid/Dextrose 300 ml @ 300 mls/hr Q12HR IV Last administered on at 19:55; Start 11/30/17 at 21:00 Oxycodone/ Acetaminophen (Percocet 5/325) 1 tab PRN Q6HRS PRN PO PAIN Last administered on 12/01/17at 20:55; Start 12/01/17 at 20:45 Active Scripts Active Reported No Known Medications Prior To Admisstion (Info) Each 1 Each Vitals/I & O Vital Sign - Last 24 Hours 11/30/17 11/30/17 12/01/17 12/01/17 21:57 23:42 03:19 07:00 Temp 99.4 99.5 98.8 99.4 99.5 98.8 Pulse 92 92 91 Resp 17 18 B/P (MAP) 145/85 (105) 136/79 (98) 148/89 (108) Pulse Ox 97 96 97 O2 Delivery Room Air Room Air Room Air Room Air 12/01/17 12/01/17 12/01/17 12/01/17 07:43 11:00 14:59 19:38 Temp 98.6 97.9 98.2 98.6 97.9 98.2 Pulse 85 88 78 Resp 18 18 20 B/P (MAP) 142/88 (106) 143/86 (105) 130/78 (95) Pulse Ox 98 97 98 O2 Delivery Room Air Room Air Room Air Room Air 12/01/17 20:55 O2 Delivery Room Air Intake and Output 11/30/17 11/30/17 12/01/17 15:00 23:00 07:00 Intake Total 0 ml 400 ml Output Total 900 ml 950 ml Balance -900 ml -550 ml POWER MORRELL MD Dec 01, 2017 22:05
[2017-12-01 23:10] VITALS: BP 143/92
[2017-12-02] MEDS: POTASSIUM CL 20MEQ D5-0.45NACL 1,000 ML IV SCH ×3 (00:29→20:35)
[2017-12-02] MEDS: PIPERACILLIN/TAZOBACTAM 3.375 GM in IV NORMAL SALINE 50ML 50 ML IV SCH ×5 (00:30→23:35)
[2017-12-02 03:48] VITALS: BP 138/87
[2017-12-02 06:55] VITALS: BP 142/79
[2017-12-02] MEDS: LACTOBACILLUS RHAMNOSUS GG 1 CAPSULE. PO SCH ×2 (09:01→20:33)
[2017-12-02] MEDS: oxyCODONE/APAP 5/325 1 TAB TABLET PO PRN ×2 (09:01→20:33)
[2017-12-02 10:41] VITALS: BP 145/91
--- NOTE | 2017-12-02 10:59 | PDOC ---
Infectious Disease Note Subjective Subjective feeling better ROS ROS no n/v/d/sob/fever pain is less Vital Sign Vital Signs Vital Signs Date Time Temp Pulse Resp B/P (MAP) Pulse Ox O2 Delivery O2 Flow Rate FiO2 12/02/17 10:41 98.6 91 18 145/91 (109) 98 Room Air 98.6 Physical Exam PHYSICAL EXAM GENERAL: The patient is resting quietly. VITAL SIGNS: stable HEENT: Normal conjunctivae. Oral mucosa is pink and moist. NECK: Supple. LUNGS: Clear to auscultation. HEART: S1, S2. ABDOMEN: Bowel sounds active, soft, nontender. EXTREMITIES: Unremarkable except for left lower extremity edema. The lateral/posterior area of the lower left leg has several areas of ulceration, some purple discoloration with warmth and drainage. Distal pulses palpable. SKIN: Warm without rash. NEUROLOGIC: Arouses easily to name, responds appropriately and is sleepy. Labs Micro Microbiology 11/30/17 Blood Culture - Preliminary, Resulted NO GROWTH AFTER 1 DAY Objective Assessment 1. Sepsis, present on admission. 2. Cellulitis left lower extremity. 3. Fever. 4. Leukocytosis. 5. Hypertension. Plan Plan of Care d/c soon on po cipro and MATT Agarwal MD Dec 02, 2017 10:59
[2017-12-02] MEDS: ACETAMINOPHEN 325 MG TABLET. PO PRN (12:35)
[2017-12-02 14:26] VITALS: BP 144/94
[2017-12-02 19:35] VITALS: BP 136/80
--- NOTE | 2017-12-02 21:44 | PDOC ---
PROGRESS NOTES Chief Complaint Chief Complaint Left leg pain Cellulitis History of Present Illness History of Present Illness Admitted with left leg pain swelling, fever and chills, leukocytosis, admitted for sepsis 2/2 cellulitis. Improved redness with compression and antibiotics. Has better pain control today and less swelling. 1-cellulitis LLE - add pain control today and compression wrap with wound care improved 2-sepsis - lactate improved after fluids and antibiotics, has resolved 3- leukocytosis improving 4-hypokalemia - replaced, will monitor mag 5-hx HTN cultures, ABx , ID consult, follow lytes and WBC, hydration, likely could be d/c 'd in next day on ID recommended oral regimen of cipro + doxy Vitals Vitals Vital Signs Date Time Temp Pulse Resp B/P (MAP) Pulse Ox O2 Delivery O2 Flow Rate FiO2 12/02/17 20:33 Room Air 12/02/17 19:35 98.6 78 18 136/80 (98) 97 98.6 Physical Exam Physical Exam GENERAL: The patient is resting quietly. VITAL SIGNS: stable HEENT: Normal conjunctivae. Oral mucosa is pink and moist. NECK: Supple. LUNGS: Clear to auscultation. HEART: S1, S2. ABDOMEN: Bowel sounds active, soft, nontender. EXTREMITIES: Unremarkable except for left lower extremity edema. The lateral/posterior area of the lower left leg has several areas of ulceration, some purple discoloration with warmth and drainage. Distal pulses palpable. SKIN: Warm without rash. NEUROLOGIC: Arouses easily to name, responds appropriately and is sleepy. Assessment and Plan Assessmemt and Plan Problems Medical Problems: (1) Left leg cellulitis Status: Acute (2) Sepsis Status: Acute Comment Review of Relevant I have reviewed the following items alem (where applicable) has been applied. Labs Laboratory Tests Test 12/01/17 04:15 White Blood Count 20.8 x10^3/uL (4.0-11.0) Red Blood Count 3.88 x10^6/uL (4.30-5.70) Hemoglobin 12.0 g/dL (13.0-17.5) Hematocrit 35.2 % (39.0-53.0) Mean Corpuscular Volume 91 fL (79-100) Mean Corpuscular Hemoglobin 31 pg (25-35) Mean Corpuscular Hemoglobin Concent 34 g/dL (31-37) Red Cell Distribution Width 13.6 % (11.5-14.5) Platelet Count 262 x10^3/uL (140-400) Neutrophils (%) (Auto) 78 % (31-73) Lymphocytes (%) (Auto) 15 % (24-48) Monocytes (%) (Auto) 6 % (0-9) Eosinophils (%) (Auto) 1 % (0-3) Basophils (%) (Auto) 1 % (0-3) Neutrophils # (Auto) 16.2 x10^3uL (1.8-7.7) Lymphocytes # (Auto) 3.0 x10^3/uL (1.0-4.8) Monocytes # (Auto) 1.2 x10^3/uL (0.0-1.1) Eosinophils # (Auto) 0.2 x10^3/uL (0.0-0.7) Basophils # (Auto) 0.1 x10^3/uL (0.0-0.2) Erythrocyte Sedimentation Rate 57 (0-15) Sodium Level 138 mmol/L (136-145) Potassium Level 3.8 mmol/L (3.5-5.1) Chloride Level 104 mmol/L (98-107) Carbon Dioxide Level 26 mmol/L (21-32) Anion Gap 8 (6-14) Blood Urea Nitrogen 8 mg/dL (8-26) Creatinine 1.0 mg/dL (0.7-1.3) Estimated GFR (Cockcroft-Gault) 80.8 BUN/Creatinine Ratio 8 (6-20) Glucose Level 107 mg/dL (70-99) Calcium Level 8.9 mg/dL (8.5-10.1) Total Bilirubin 0.3 mg/dL (0.2-1.0) Aspartate Amino Transf (AST/SGOT) 13 U/L (15-37) Alanine Aminotransferase (ALT/SGPT) 23 U/L (16-63) Alkaline Phosphatase 81 U/L (46-116) Total Protein 6.3 g/dL (6.4-8.2) Albumin 2.3 g/dL (3.4-5.0) Albumin/Globulin Ratio 0.6 (1.0-1.7) Microbiology 11/30/17 Blood Culture - Preliminary, Resulted NO GROWTH AFTER 2 DAYS 11/30/17 Anaerobic/Aerobic Culture, Resulted Pending 11/30/17 Anaerobic Culture Result 1 (LEDY), Resulted Pending 11/30/17 Aerobic Culture, Resulted Pending 11/30/17 Aerobic Culture Result 1 (LEDY), Resulted Pending 11/30/17 Gram Stain - Final, Resulted 11/30/17 Gram Stain Result 1 (LEDY) - Final, Resulted 11/30/17 Gram Stain Result 2 (LEDY) - Final, Resulted Medications Current Medications Sodium Chloride 1,000 ml @ 1,000 mls/hr 1X ONCE IV Last administered on at 01:16; Start 11/30/17 at 01:30; Stop 11/30/17 at 02:29; Status DC Vancomycin HCl 2 gm/Sodium Chloride 500 ml @ 250 mls/hr 1X ONCE IV Last administered on 11/30/17at 01:15; Start 11/30/17 at 01:30; Stop 11/30/17 at 03:29 ; Status DC Fentanyl Citrate (Fentanyl 2ml Vial) 75 mcg 1X ONCE IM Last administered on at 01:16; Start 11/30/17 at 01:30; Stop 11/30/17 at 01:31; Status DC Ondansetron HCl (Zofran) 4 mg 1X ONCE IV Last administered on 11/30/17at 01:16 ; Start 11/30/17 at 01:30; Stop 11/30/17 at 01:31; Status DC Sodium Chloride 1,000 ml @ 1,000 mls/hr 1X ONCE IV Last administered on at 02:37; Start 11/30/17 at 02:00; Stop 11/30/17 at 02:59; Status DC Sodium Chloride 1,000 ml @ 1,000 mls/hr 1X ONCE IV Last administered on at 03:45; Start 11/30/17 at 02:00; Stop 11/30/17 at 02:59; Status DC Piperacillin Sod/ Tazobactam Sod (Zosyn Per Pharmacy) 1 each PRN DAILY PRN MC SEE COMMENTS; Start 11/30/17 at 01:45 Piperacillin Sod/ Tazobactam Sod 4.5 gm/Sodium Chloride 100 ml @ 200 mls/hr 1X ONCE IV Last administered on 11/30/17at 02:37; Start 11/30/17 at 02:00; Stop 11/30/17 at 02:29; Status DC Vancomycin HCl (Vanco Per Pharmacy) 1 each PRN DAILY PRN MC SEE COMMENTS Last administered on 11/30/17at 14:08; Start 11/30/17 at 02:45; Stop 11/30/17 at 19:37 ; Status DC Ondansetron HCl (Zofran) 4 mg PRN Q8HRS PRN IV NAUSEA/VOMITING 1ST CHOICE; Start 11/30/17 at 02:45; Stop 12/01/17 at 02:44; Status DC Morphine Sulfate (Morphine Sulfate) 4 mg PRN Q2HR PRN IV SEVERE PAIN Last administered on 11/30/17at 20:38; Start 11/30/17 at 02:45; Stop 12/01/17 at 02:44 ; Status DC Sodium Chloride 1,000 ml @ 150 mls/hr Q6H40M IV Last administered on at 15:51; Start 11/30/17 at 02:31; Stop 12/01/17 at 02:30; Status DC Levofloxacin/ Dextrose (Levaquin Per Pharmacy) 1 each PRN DAILY PRN MC SEE COMMENTS; Start 11/30/17 at 02:45; Stop 11/30/17 at 21:14; Status DC Levofloxacin/ Dextrose 100 ml @ 100 mls/hr 1X ONCE IV Last administered on at 05:00; Start 11/30/17 at 03:00; Stop 11/30/17 at 03:59; Status DC Piperacillin Sod/ Tazobactam Sod 3.375 gm/Sodium Chloride 50 ml @ 100 mls/hr Q6HRS IV Last administered on 12/02/17at 16:57; Start 11/30/17 at 06:00 Levofloxacin/ Dextrose 100 ml @ 100 mls/hr Q24H IV ; Start 12/01/17 at 05:00; Stop 12/01/17 at 05:00; Status DC Vancomycin HCl 1.25 gm/Sodium Chloride 250 ml @ 167 mls/hr Q12H IV ; Start at 13:00; Status Cancel Lactobacillus Rhamnosus (Culturelle) 1 cap BID PO Last administered on at 20:33; Start 11/30/17 at 09:00 Vancomycin HCl 1.5 gm/Sodium Chloride 500 ml @ 250 mls/hr Q12H IV Last administered on 11/30/17at 14:38; Start 11/30/17 at 13:00; Stop 11/30/17 at 19:37 ; Status DC Vancomycin HCl (Vancomycin Trough Level) 1 each 1X ONCE MC ; Start 12/01/17 at 12:30; Stop 12/01/17 at 12:31; Status Cancel Influenza Virus Vaccine (Afluria Trivalent [id number] Syringe) 0.5 ml ONCE ONCE VAX IM ; Start 11/30/17 at 09:00; Stop 11/30/17 at 09:01; Status DC Potassium Chloride (Klor-Con) 40 meq 1X ONCE PO Last administered on at 13:06; Start 11/30/17 at 11:30; Stop 11/30/17 at 11:31; Status DC Potassium Chloride/Dextrose/ Sod Cl 1,000 ml @ 100 mls/hr Q10H IV Last administered on 12/02/17at 20:35; Start 11/30/17 at 11:30 Acetaminophen (Tylenol) 650 mg PRN Q6HRS PRN PO fever Last administered on 12/02at 12:35; Start 11/30/17 at 12:00 Linezolid/Dextrose 300 ml @ 300 mls/hr Q12HR IV Last administered on at 20:37; Start 11/30/17 at 21:00 Oxycodone/ Acetaminophen (Percocet 5/325) 1 tab PRN Q6HRS PRN PO PAIN Last administered on 12/02/17at 20:33; Start 12/01/17 at 20:45 Ketorolac Tromethamine (Toradol 15mg Vial) 15 mg TID PRN PRN IV SEVERE PAIN; Start 12/01/17 at 22:00; Stop 12/03/17 at 00:00 Active Scripts Active Reported No Known Medications Prior To Admisstion (Info) Each 1 Each Vitals/I & O Vital Sign - Last 24 Hours 12/01/17 12/01/17 12/02/17 12/02/17 21:55 23:10 03:48 06:55 Temp 98.0 98.4 98.3 98.0 98.4 98.3 Pulse 85 73 85 Resp 20 16 17 B/P (MAP) 143/92 (109) 138/87 (104) 142/79 (100) Pulse Ox 100 96 96 O2 Delivery Room Air Room Air Room Air Room Air 12/02/17 12/02/17 12/02/17 12/02/17 08:30 10:41 14:26 19:35 Temp 98.6 98.0 98.6 98.6 98.0 98.6 Pulse 91 72 78 Resp 18 17 18 B/P (MAP) 145/91 (109) 144/94 (111) 136/80 (98) Pulse Ox 98 99 97 O2 Delivery Room Air Room Air Room Air Room Air 12/02/17 20:33 O2 Delivery Room Air Intake and Output 12/01/17 12/01/17 12/02/17 15:00 23:00 07:00 Intake Total 400 ml 200 ml Output Total 1250 ml 900 ml 1200 ml Balance -1250 ml -500 ml -1000 ml POWER MORRELL MD Dec 02, 2017 21:44
[2017-12-02 23:20] VITALS: BP 139/79
[2017-12-03 03:10] VITALS: BP 139/79
[2017-12-03] MEDS: PIPERACILLIN/TAZOBACTAM 3.375 GM in IV NORMAL SALINE 50ML 50 ML IV SCH (05:56)
[2017-12-03 07:00] VITALS: BP 156/85
--- NOTE | 2017-12-03 09:24 | PDOC ---
Infectious Disease Note Subjective Subjective feeling better ROS ROS no n/v/d/sob Vital Sign Vital Signs Vital Signs Date Time Temp Pulse Resp B/P (MAP) Pulse Ox O2 Delivery O2 Flow Rate FiO2 12/03/17 07:00 97.7 69 20 156/85 (108) 96 Room Air 97.7 Physical Exam PHYSICAL EXAM GENERAL: The patient is resting quietly. VITAL SIGNS: stable HEENT: Normal conjunctivae. Oral mucosa is pink and moist. NECK: Supple. LUNGS: Clear to auscultation. HEART: S1, S2. ABDOMEN: Bowel sounds active, soft, nontender. EXTREMITIES: Unremarkable except for left lower extremity edema. The lateral/posterior area of the lower left leg has several areas of ulceration, some purple discoloration with warmth and drainage. Distal pulses palpable. SKIN: Warm without rash. NEUROLOGIC: Arouses easily to name, responds appropriately and is sleepy. Labs Micro Microbiology 11/30/17 Blood Culture - Preliminary, Resulted NO GROWTH AFTER 1 DAY Objective Assessment 1. Sepsis, present on admission. 2. Cellulitis left lower extremity. 3. Fever. 4. Leukocytosis. 5. Hypertension. Plan Plan of Care d/c on po cipro and MATT Agarwal MD Dec 03, 2017 09:24
[2017-12-03] MEDS: LACTOBACILLUS RHAMNOSUS GG 1 CAPSULE. PO SCH (09:39)
[2017-12-03] MEDS ORDERED: CIPROFLOXACIN HCL 250 MG TABLET. PO SCH (10:00)
[2017-12-03] MEDS ORDERED: DOXYCYCLINE HYCLATE 100 MG TABLET PO SCH (10:00)
[2017-12-03 11:00] VITALS: BP 189/95
[2017-12-03] MEDS ORDERED: OXYC1TAB7 PO (13:20)
[2017-12-03] MEDS ORDERED: DOXY100T PO (13:20)
[2017-12-03] MEDS ORDERED: MUPI15CR8 TP (13:20)
[2017-12-03] MEDS ORDERED: LACT1CAP19 PO (13:20)
[2017-12-03] MEDS ORDERED: CIPR250T30 PO (13:20)
[2017-12-03] MEDS ORDERED: MUPIROCIN 2 % TOPICAL CREAM 15GM TUBE. TP SCH (14:00)
[2017-12-03 15:00] VITALS: BP 162/107
== END 2017-12-03 19:01 | disposition home or self-care (01) | DRG 872 ==
LOC: ER 00:30 → 6 SOUTH 01:55
PROVIDERS: ADMIT Hospitalist; ATTEND Hospitalist
DX: A41.9 Sepsis, unspecified organism (principal); L03.116 Cellulitis of left lower limb; E87.6 Hypokalemia; F17.210 Nicotine dependence, cigarettes, uncomplicated; I10 Essential (primary) hypertension; J44.9 Chronic obstructive pulmonary disease, unspecified; F41.9 Anxiety disorder, unspecified; Z79.899 Other long term (current) drug therapy
CPT/HCPCS: 36415; 73590; 73700; 80053; 82550; 83605; 84145; 85007; 85025; 85651; 86140; 87040; 87071; 87075; 96365; 96372; 96375; J1956; J2020; J2270; J2405; J2543; J3010; J3370; J7030; J7040; 99285-25

== ENCOUNTER 2017-12-27 20:34 | Inpatient (IN) | payer SELFPAY ==
[~2017-12-27] VITALS: Ht 175.3 cm; Wt 81.2 kg
[~2017-12-27 20:34] MED LIST: CIPR250T30 PO; DOXY100T PO; LACT1CAP19 PO; MUPI15CR8 TP; OXYC1TAB7 PO
[2017-12-27] MEDS ORDERED: IV NORMAL SALINE 1000ML BAG 1,000 ML IV ONE (21:30)
[2017-12-27] MEDS ORDERED: diphenhydrAMINE 50 MG/ML VIAL IVP ONE (21:30)
[2017-12-27 22:15] LABS: BASO # 0.1 x10^3/uL (0.0-0.2); BASO % 1 % (0-3); EOS # 1.1 x10^3/uL (0.0-0.7); EOS % 10 % (0-3); HEMATOCRIT 41.3 % (39.0-53.0); HEMOGLOBIN 14.7 g/dL (13.0-17.5); LYMPH # 2.9 x10^3/uL (1.0-4.8); LYMPH % 27 % (24-48); MEAN CORPUSCULAR HEMOGLOBIN 32 pg (25-35); MEAN CORPUSCULAR HGB CONC 36 g/dL (31-37); MEAN CORPUSCULAR VOLUME 90 fL (79-100); MONO # 0.6 x10^3/uL (0.0-1.1); MONO % 6 % (0-9); NEUT # 6.1 x10^3uL (1.8-7.7); NEUT % 56 % (31-73); PLATELET COUNT 303 x10^3/uL (140-400); RED BLOOD COUNT 4.61 x10^6/uL (4.30-5.70); RED CELL DISTRIBUTION WIDTH 13.5 % (11.5-14.5); WHITE BLOOD COUNT 10.9 x10^3/uL (4.0-11.0)
[2017-12-27] MEDS ORDERED: diphenhydrAMINE HCL 25 MG CAPSULE PO ONE (22:15)
[2017-12-27 22:23] LABS: CALCIUM 8.7 mg/dL (8.5-10.1); CREATININE 0.9 mg/dL (0.7-1.3); GFR 91.3; POTASSIUM 3.5 mmol/L (3.5-5.1); PROTHROMBIN TIME PATIENT 12.9 SEC (11.7-14.0)
[2017-12-27 22:29] LABS: ALBUMIN 2.8 g/dL (3.4-5.0); ALBUMIN/GLOBULIN RATIO 0.7 (1.0-1.7); C-REACTIVE PROTEIN 16.9 mg/L (0-3.3); TOTAL BILIRUBIN 0.2 mg/dL (0.2-1.0); TOTAL PROTEIN 6.7 g/dL (6.4-8.2)
--- NOTE | 2017-12-27 22:50 | RAD ---
Left upper Extremity Venous Doppler Ultrasound History: Redness and swelling Comparison: None Procedure: Color flow, duplex, spectral analysis and 2D images are obtained with and without compression in the area of the deep and superficial venous structures of the upper , specifically the axillary, brachials, radial and ulnar deep veins and the superficial basilic and cephalic veins. Color Doppler and venous waveform analysis was also applied to the left jugular and subclavian vein. Findings: There is normal duplex flow, color flow and compressibility of all visualized vein segments. No evidence of deep venous thrombus is present. There is limited visualization due to scale your rash skin. The forearm veins are not visualized. Impression: Normal venous Doppler ultrasound with no evidence of DVT. End impression Left Lower Extremity Venous Doppler Ultrasound History: Swelling and erythema Comparison: None Procedure: Color flow, duplex, spectral analysis and 2D images are obtained with and without compression in the area of the common femoral vein, superficial femoral vein - femoral vein junction, main femoral vein (superficial femoral vein) and popliteal vein. Veins of the proximal calf are also imaged. Findings: There is normal duplex flow, color flow and compressibility of all visualized vein segments. No evidence of deep venous thrombus is present. There is limited visualization due to a rash with open sores. Impression: No evidence of DVT. Electronically signed by: Ramon Patel III, MD (12/27/2017 10:47 PM) [facility]
--- NOTE | 2017-12-27 23:01 | PHYS DOC ---
Past Medical History Past Medical History: Hypertension Past Surgical History: Other Additional Past Surgical Histo: ORBITAL SX Alcohol Use: Rarely Drug Use: None Adult General Chief Complaint Chief Complaint: SKIN RASH/ABSCESS HPI HPI 47-year-old male presents with report of open skin rashes to left lower extremity and left forearm 3 weeks. Patient was recently admitted to the hospital for sepsis due to left lower extremity cellulitis. Patient reports compliance with his medications including antibiotics upon discharge. Patient reports he has not been able to follow with a PCP or wound care due to lack of insurance or monetary funds. Patient does report some continued subjective fever /chills. Denies known trauma. Patient does report some weeping from the wounds. Denies prior history of dermatitis including psoriasis or eczema. Review of Systems Review of Systems Constitutional: Reports subjective fever and chills [] Eyes: Denies change in visual acuity, redness, or eye pain [] HENT: Denies nasal congestion or sore throat [] Respiratory: Denies cough or shortness of breath [] Cardiovascular: Denies chest pain or palpitations GI: Denies abdominal pain, nausea, vomiting, or diarrhea [] : Denies dysuria or hematuria [] Musculoskeletal: Denies back pain or joint pain [] Integument: Reports rash to left lower extremity and left upper extremity Neurologic: Denies headache, focal weakness or sensory changes [] Complete systems were reviewed and found to be within normal limits, except as documented in this note. Current Medications Current Medications Current Medications Medications (Trade) Dose Ordered Sig/Lety Start Time Stop Time Status Last Admin Dose Admin Acetaminophen (Tylenol) 650 mg PRN Q4HRS PRN 12/27/17 23:30 12/28/17 23:29 12/28/17 08:38 650 MG Dexamethasone Sodium Phosphate (Decadron) 10 mg 1X ONCE 12/27/17 23:30 12/27/17 23:31 DC 12/28/17 00:06 10 MG Diphenhydramine HCl (Benadryl) 50 mg 1X ONCE 12/27/17 22:15 12/27/17 22:16 DC 12/27/17 22:02 50 MG Ondansetron HCl (Zofran) 4 mg PRN Q8HRS PRN 12/27/17 23:30 12/28/17 08:29 DC Sodium Chloride 1,000 ml @ 1,000 mls/hr 1X ONCE 12/27/17 21:30 12/27/17 22:29 DC 12/27/17 22:02 1,000 MLS/HR Allergies Allergies Allergies Coded Allergies Type Severity Reaction Last Updated Verified No Known Drug Allergies 08/18/13 No Physical Exam Physical Exam Constitutional: Well developed, well nourished, no acute distress, non-toxic appearance. [] HENT: Normocephalic, atraumatic, oropharynx moist] Eyes: Conjunctiva normal, no discharge. [] Neck: Normal range of motion, no tenderness, supple Cardiovascular: Heart rate regular rhythm, no murmur [] Lungs & Thorax: Bilateral breath sounds clear to auscultation [] Abdomen: Soft, no tenderness Skin: Warm, rash with ulcerations noted primarily to LLE extending up onto thigh and from left wrist to mid humerus, cracking noted to bilateral hands Extremities: LLE tenderness on palpation, +2 edema noted, LUE tenderness on palpation, +1 edema noted, ROM intact Neurologic: Alert and oriented X 3, normal motor function, normal sensory function, no focal deficits noted. [] Psychologic: Affect normal, judgement normal, mood normal. [] Current Patient Data Vital Signs Vital Signs Date Time Temp Pulse Resp B/P (MAP) Pulse Ox O2 Delivery O2 Flow Rate FiO2 12/27/17 23:15 82 18 188/110 (136) 100 Room Air 12/27/17 20:49 98.1 98.1 Lab Values Laboratory Tests Test 12/27/17 22:00 12/27/17 22:45 12/27/17 23:15 White Blood Count 10.9 x10^3/uL (4.0-11.0) Red Blood Count 4.61 x10^6/uL (4.30-5.70) Hemoglobin 14.7 g/dL (13.0-17.5) Hematocrit 41.3 % (39.0-53.0) Mean Corpuscular Volume 90 fL (79-100) Mean Corpuscular Hemoglobin 32 pg (25-35) Mean Corpuscular Hemoglobin Concent 36 g/dL (31-37) Red Cell Distribution Width 13.5 % (11.5-14.5) Platelet Count 303 x10^3/uL (140-400) Neutrophils (%) (Auto) 56 % (31-73) Lymphocytes (%) (Auto) 27 % (24-48) Monocytes (%) (Auto) 6 % (0-9) Eosinophils (%) (Auto) 10 % (0-3) H Basophils (%) (Auto) 1 % (0-3) Neutrophils # (Auto) 6.1 x10^3uL (1.8-7.7) Lymphocytes # (Auto) 2.9 x10^3/uL (1.0-4.8) Monocytes # (Auto) 0.6 x10^3/uL (0.0-1.1) Eosinophils # (Auto) 1.1 x10^3/uL (0.0-0.7) H Basophils # (Auto) 0.1 x10^3/uL (0.0-0.2) Erythrocyte Sedimentation Rate 21 (0-15) H Prothrombin Time 12.9 SEC (11.7-14.0) Prothrombin Time INR 1.0 (0.8-1.1) PTT 29 SEC (24-38) Sodium Level 143 mmol/L (136-145) Potassium Level 3.5 mmol/L (3.5-5.1) Chloride Level 107 mmol/L (98-107) Carbon Dioxide Level 28 mmol/L (21-32) Anion Gap 8 (6-14) Blood Urea Nitrogen 8 mg/dL (8-26) Creatinine 0.9 mg/dL (0.7-1.3) Estimated GFR (Cockcroft-Gault) 91.3 BUN/Creatinine Ratio 9 (6-20) Glucose Level 87 mg/dL (70-99) Calcium Level 8.7 mg/dL (8.5-10.1) Magnesium Level 2.0 mg/dL (1.8-2.4) Total Bilirubin 0.2 mg/dL (0.2-1.0) Aspartate Amino Transferase (AST) 19 U/L (15-37) Alanine Aminotransferase (ALT) 28 U/L (16-63) Alkaline Phosphatase 107 U/L (46-116) C-Reactive Protein, Quantitative 16.9 mg/L (0-3.3) H Total Protein 6.7 g/dL (6.4-8.2) Albumin 2.8 g/dL (3.4-5.0) L Albumin/Globulin Ratio 0.7 (1.0-1.7) L Lactic Acid Level 0.9 mmol/L (0.4-2.0) Urine Collection Type Unknown Urine Color Yellow Urine Clarity Clear Urine pH 7.0 Urine Specific [place] 1.015 Urine Protein Negative mg/dL (NEG-TRACE) Urine Glucose (UA) Negative mg/dL (NEG) Urine Ketones (Stick) Trace mg/dL (NEG) Urine Blood Negative (NEG) Urine Nitrite Negative (NEG) Urine Bilirubin Negative (NEG) Urine Urobilinogen Dipstick 1.0 mg/dL (0.2 mg/dL) Urine Leukocyte Esterase Moderate (NEG) Urine RBC 3-5 /HPF (0-2) Urine WBC >40 /HPF (0-4) Urine Squamous Epithelial Cells Few /LPF Urine Bacteria Moderate /HPF (0-FEW) Urine Mucus Mod /LPF Laboratory Tests 12/27/17 22:00 Laboratory Tests 12/27/17 22:00 EKG EKG [] Radiology/Procedures Radiology/Procedures PROCEDURE: VENOUS UPPER EXTREMITY LEFT Left upper Extremity Venous Doppler Ultrasound History: Redness and swelling Comparison: None Procedure: Color flow, duplex, spectral analysis and 2D images are obtained with and without compression in the area of the deep and superficial venous structures of the upper , specifically the axillary, brachials, radial and ulnar deep veins and the superficial basilic and cephalic veins. Color Doppler and venous waveform analysis was also applied to the left jugular and subclavian vein. Findings: There is normal duplex flow, color flow and compressibility of all visualized vein segments. No evidence of deep venous thrombus is present. There is limited visualization due to scale your rash skin. The forearm veins are not visualized. Impression: Normal venous Doppler ultrasound with no evidence of DVT. End impression Left Lower Extremity Venous Doppler Ultrasound History: Swelling and erythema Comparison: None Procedure: Color flow, duplex, spectral analysis and 2D images are obtained with and without compression in the area of the common femoral vein, superficial femoral vein - femoral vein junction, main femoral vein (superficial femoral vein) and popliteal vein. Veins of the proximal calf are also imaged. Findings: There is normal duplex flow, color flow and compressibility of all visualized vein segments. No evidence of deep venous thrombus is present. There is limited visualization due to a rash with open sores. Impression: No evidence of DVT. Electronically signed by: Ramon Patel III, MD (12/27/2017 10:47 PM) Course & Med Decision Making Course & Med Decision Making Pertinent Labs and Imaging studies reviewed. (See chart for details) patient with recent admission for sepsis secondary to cellulitis of left lower extremity presents with cracking ulcerative rash to left lower extremity and left upper extremity. Patient does report subjective fevers/chills. Afebrile upon presentation. Labs obtained and posted chart. The CBC and lactic acid within normal limits. CRP and Sed rate elevated. Venous doppler of LLE and LUE negative for DVT. Cannot exclude inflammatory dermatitis. Symptomatic steroid and Benadryl provided. UA with concern for UTI. Empiric antibiotic initiated. Patient does not have ability to follow up with a PCP and/or wound care clinic at this time. blood pressure also noted to be significantly elevated. Labetalol provided with interval improvement. Patient requiring admission for further evaluation and treatment. Discussed with Dr. Sierra (hospitalist) who is in agreement with admission. Discussed findings and plan with patient and family, who acknowledge understanding and agreement. [employer] voice recognition software utilized. Musiwave Disclaimer Musiwave Disclaimer This electronic medical record was generated, in whole or in part, using a voice recognition dictation system. Departure Departure Impression: Primary Impression: Pruritic erythematous rash Additional Impressions: Hypertension UTI (urinary tract infection) Disposition: ADMITTED INPATIENT Admitting Physician: Cash Sierra Condition: STABLE Referrals: NO PCP (PCP) Problem Qualifiers Additional Impressions: Hypertension Hypertension type: unspecified Qualified Codes: I10 - Essential (primary) hypertension UTI (urinary tract infection) Urinary tract infection type: acute cystitis Hematuria presence: without hematuria Qualified Codes: N30.00 - Acute cystitis without hematuria CHAD MEZA DO Dec 27, 2017 23:00
[2017-12-27] MEDS ORDERED: DEXAMETHASONE SOD PHOS 20 MG/5 ML VIAL. IV ONE (23:30)
[2017-12-27] MEDS ORDERED: ONDANSETRON PF 4 MG/2 ML VIAL. IV PRN (23:30)
[2017-12-27 23:39] LABS: BILIRUBIN,URINE NEGATIVE (NEG); CLARITY,URINE CLEAR; COLOR,URINE YELLOW; NITRITE,URINE NEGATIVE (NEG); PROTEIN,URINE NEGATIVE (NEG-TRACE)
[2017-12-27 23:53] LABS: BACTERIA,URINE MODERATE /HPF (0-FEW); SQUAMOUS EPITHELIAL CELL,UR FEW /LPF; WBC,URINE >40 /HPF (0-4)
[2017-12-28] MEDS ORDERED: LABETALOL 20 MG/4 ML DISP.SYRIN. IVP ONE
[2017-12-28] MEDS: ACETAMINOPHEN 325 MG TABLET. PO PRN ×2 (01:30→08:38)
[2017-12-28] MEDS ORDERED: C.DIFF MED SCREEN BY RX. MC ONE (02:15)
[2017-12-28 03:00] VITALS: BP 152/85
[2017-12-28 07:45] VITALS: BP 123/67
[2017-12-28] MEDS ORDERED: ONDANSETRON PF 4 MG/2 ML VIAL. IV PRN (08:30)
[2017-12-28] MEDS ORDERED: LABETALOL 20 MG/4 ML DISP.SYRIN. IVP PRN (08:30)
[2017-12-28] MEDS ORDERED: CELECOXIB 100 MG CAPSULE. PO SCH (09:00)
--- NOTE | 2017-12-28 10:21 | PDOC1 ---
History and Physical Date of Admission Date of Admission DATE: 12/28/17 TIME: 10:18 Identification/Chief Complaint Chief Complaint Left leg redness, scaling, left upper extremity redness, scaling Source Source: Caregiver, Chart review, Patient History of Present Illness History of Present Illness 47-year-old male, self-pay, lives at home, was just recently discharged here 3 weeks ago when he stayed November 30 to December 12 for the following diagnoses 1. Sepsis, present on admission. 2. Cellulitis left lower extremity. 3. Fever. 4. Leukocytosis. 5. Hypertension. He was comanage with ID, discharge appropriately on by mouth Cipro and Doxy. BC were neg that admit. He comes in because of left leg swelling, redness significant scaling, also left upper ex empty redness scaling. US neg for both extremities. Also of note I did not see him during that admission so I am not sure as to how his legs looked at that time I could also see some petechial like rash on other right extremities, RUE and RLE. No rash on the face, neck, head or back. He denies a history of psoriasis. He is not taking any meds or applying any lotion at home except for the by mouth Doxy and Cipro that he was discharged with. Patient is admitted because of cellulitis, sedimentation rate is only 21, WBCs 10, afebrile. Nondiabetic Past Medical History Cardiovascular: HTN Pulmonary: COPD GI: No pertinent hx Heme/Onc: No pertinent hx Hepatobiliary: No pertinent hx Psych: Anxiety Infectious disease: No pertinent hx Endocrine: No pertinent hx Past Surgical History Past Surgical History: Other Family History Family History: Family History Unknown Social History Smoke: No ALCOHOL: rare Drugs: None Current Problem List Problem List Problems Medical Problems: (1) Hypertension Status: Acute (2) Pruritic erythematous rash Status: Acute Current Medications Current Medications Current Medications Diphenhydramine HCl (Benadryl) 25 mg 1X ONCE IVP ; Start 12/27/17 at 21:30; Stop 12/27/17 at 21:31; Status Cancel Sodium Chloride 1,000 ml @ 1,000 mls/hr 1X ONCE IV Last administered on 12/27at 22:02; Start 12/27/17 at 21:30; Stop 12/27/17 at 22:29; Status DC Diphenhydramine HCl (Benadryl) 50 mg 1X ONCE PO Last administered on at 22:02; Start 12/27/17 at 22:15; Stop 12/27/17 at 22:16; Status DC Dexamethasone Sodium Phosphate (Decadron) 10 mg 1X ONCE IV Last administered on 12/28/17at 00:06; Start 12/27/17 at 23:30; Stop 12/27/17 at 23:31; Status DC Ondansetron HCl (Zofran) 4 mg PRN Q8HRS PRN IV NAUSEA/VOMITING 1ST CHOICE; Start 12/27/17 at 23:30; Stop 12/28/17 at 08:29; Status DC Acetaminophen (Tylenol) 650 mg PRN Q4HRS PRN PO FEVER Last administered on at 08:38; Start 12/27/17 at 23:30; Stop 12/28/17 at 23:29 Labetalol HCl (Normodyne Iv Push) 10 mg 1X ONCE IVP Last administered on 12/28at 00:07; Start 12/28/17 at 00:00; Stop 12/28/17 at 00:01; Status DC Pharmacy Consult (C.diff Med Screen By Rx) 1 each 1X ONCE [facility] ; Start 12/28/17 at 02:15; Stop 12/28/17 at 02:18; Status DC Ondansetron HCl (Zofran) 4 mg PRN Q6HRS PRN IV NAUSEA/VOMITING 1ST CHOICE; Start 12/28/17 at 08:30 Celecoxib (CeleBREX) 100 mg BIDWMEALS PO Last administered on 12/28/17at 08:38 ; Start 12/28/17 at 09:00 Labetalol HCl (Normodyne Iv Push) 20 mg PRN Q2HR PRN IVP HYPERTENSION, SEE COMMENTS; Start 12/28/17 at 08:30 Active Scripts Active Allergies Allergies: Coded Allergies: No Known Drug Allergies (Unverified , 08/18/13) ROS Review of System As per history of present illness, the rest of ROS 14 point negative Physical Exam General: Alert, Oriented X3, Cooperative, No acute distress HEENT: Atraumatic, PERRLA, EOMI Lungs: Clear to auscultation, Normal air movement Heart: S1S2, RRR, no thrills, no rubs, no gallops, no murmurs Cardiovascular: S1, S2 Abdomen: Normal bowel sounds, Soft, No tenderness, No hepatosplenomegaly, No masses Male Genitals Exam: normal genitalia, normal prostate PELVIC: Nml ext genitalia Extremities: Other (a petechial barbara Multiple petecchiae in the right upper extremity, right lower extremity-he is significant scaling on the left upper and left lower extremity with some redness and mild to moderate swelling) Skin: Other (refer to above) Neuro: Normal gait, Normal speech, Strength at 5/5 X4 ext, Normal tone, Sensation intact, Cranial nerves 3-12 NL, Reflexes 2+ Psych/Mental Status: Mental status NL, Mood NL Vitals Vitals Vital Signs Date Time Temp Pulse Resp B/P (MAP) Pulse Ox O2 Delivery O2 Flow Rate FiO2 12/28/17 07:52 Room Air 12/28/17 07:45 98.3 72 16 123/67 (85) 96 98.3 Labs Labs Laboratory Tests Test 12/27/17 22:00 12/27/17 22:45 12/27/17 23:15 White Blood Count 10.9 x10^3/uL (4.0-11.0) Red Blood Count 4.61 x10^6/uL (4.30-5.70) Hemoglobin 14.7 g/dL (13.0-17.5) Hematocrit 41.3 % (39.0-53.0) Mean Corpuscular Volume 90 fL (79-100) Mean Corpuscular Hemoglobin 32 pg (25-35) Mean Corpuscular Hemoglobin Concent 36 g/dL (31-37) Red Cell Distribution Width 13.5 % (11.5-14.5) Platelet Count 303 x10^3/uL (140-400) Neutrophils (%) (Auto) 56 % (31-73) Lymphocytes (%) (Auto) 27 % (24-48) Monocytes (%) (Auto) 6 % (0-9) Eosinophils (%) (Auto) 10 % (0-3) Basophils (%) (Auto) 1 % (0-3) Neutrophils # (Auto) 6.1 x10^3uL (1.8-7.7) Lymphocytes # (Auto) 2.9 x10^3/uL (1.0-4.8) Monocytes # (Auto) 0.6 x10^3/uL (0.0-1.1) Eosinophils # (Auto) 1.1 x10^3/uL (0.0-0.7) Basophils # (Auto) 0.1 x10^3/uL (0.0-0.2) Erythrocyte Sedimentation Rate 21 (0-15) Prothrombin Time 12.9 SEC (11.7-14.0) Prothromb Time International Ratio 1.0 (0.8-1.1) Activated Partial Thromboplast Time 29 SEC (24-38) Sodium Level 143 mmol/L (136-145) Potassium Level 3.5 mmol/L (3.5-5.1) Chloride Level 107 mmol/L (98-107) Carbon Dioxide Level 28 mmol/L (21-32) Anion Gap 8 (6-14) Blood Urea Nitrogen 8 mg/dL (8-26) Creatinine 0.9 mg/dL (0.7-1.3) Estimated GFR (Cockcroft-Gault) 91.3 BUN/Creatinine Ratio 9 (6-20) Glucose Level 87 mg/dL (70-99) Calcium Level 8.7 mg/dL (8.5-10.1) Magnesium Level 2.0 mg/dL (1.8-2.4) Total Bilirubin 0.2 mg/dL (0.2-1.0) Aspartate Amino Transf (AST/SGOT) 19 U/L (15-37) Alanine Aminotransferase (ALT/SGPT) 28 U/L (16-63) Alkaline Phosphatase 107 U/L (46-116) C-Reactive Protein, Quantitative 16.9 mg/L (0-3.3) Total Protein 6.7 g/dL (6.4-8.2) Albumin 2.8 g/dL (3.4-5.0) Albumin/Globulin Ratio 0.7 (1.0-1.7) Lactic Acid Level 0.9 mmol/L (0.4-2.0) Urine Collection Type Unknown Urine Color Yellow Urine Clarity Clear Urine pH 7.0 Urine Specific [place] 1.015 Urine Protein Negative mg/dL (NEG-TRACE) Urine Glucose (UA) Negative mg/dL (NEG) Urine Ketones (Stick) Trace mg/dL (NEG) Urine Blood Negative (NEG) Urine Nitrite Negative (NEG) Urine Bilirubin Negative (NEG) Urine Urobilinogen Dipstick 1.0 mg/dL (0.2 mg/dL) Urine Leukocyte Esterase Moderate (NEG) Urine RBC 3-5 /HPF (0-2) Urine WBC >40 /HPF (0-4) Urine Squamous Epithelial Cells Few /LPF Urine Bacteria Moderate /HPF (0-FEW) Urine Mucus Mod /LPF Laboratory Tests Test 12/27/17 22:00 12/27/17 22:45 12/27/17 23:15 White Blood Count 10.9 x10^3/uL (4.0-11.0) Red Blood Count 4.61 x10^6/uL (4.30-5.70) Hemoglobin 14.7 g/dL (13.0-17.5) Hematocrit 41.3 % (39.0-53.0) Mean Corpuscular Volume 90 fL (79-100) Mean Corpuscular Hemoglobin 32 pg (25-35) Mean Corpuscular Hemoglobin Concent 36 g/dL (31-37) Red Cell Distribution Width 13.5 % (11.5-14.5) Platelet Count 303 x10^3/uL (140-400) Neutrophils (%) (Auto) 56 % (31-73) Lymphocytes (%) (Auto) 27 % (24-48) Monocytes (%) (Auto) 6 % (0-9) Eosinophils (%) (Auto) 10 % (0-3) Basophils (%) (Auto) 1 % (0-3) Neutrophils # (Auto) 6.1 x10^3uL (1.8-7.7) Lymphocytes # (Auto) 2.9 x10^3/uL (1.0-4.8) Monocytes # (Auto) 0.6 x10^3/uL (0.0-1.1) Eosinophils # (Auto) 1.1 x10^3/uL (0.0-0.7) Basophils # (Auto) 0.1 x10^3/uL (0.0-0.2) Erythrocyte Sedimentation Rate 21 (0-15) Prothrombin Time 12.9 SEC (11.7-14.0) Prothromb Time International Ratio 1.0 (0.8-1.1) Activated Partial Thromboplast Time 29 SEC (24-38) Sodium Level 143 mmol/L (136-145) Potassium Level 3.5 mmol/L (3.5-5.1) Chloride Level 107 mmol/L (98-107) Carbon Dioxide Level 28 mmol/L (21-32) Anion Gap 8 (6-14) Blood Urea Nitrogen 8 mg/dL (8-26) Creatinine 0.9 mg/dL (0.7-1.3) Estimated GFR (Cockcroft-Gault) 91.3 BUN/Creatinine Ratio 9 (6-20) Glucose Level 87 mg/dL (70-99) Calcium Level 8.7 mg/dL (8.5-10.1) Magnesium Level 2.0 mg/dL (1.8-2.4) Total Bilirubin 0.2 mg/dL (0.2-1.0) Aspartate Amino Transf (AST/SGOT) 19 U/L (15-37) Alanine Aminotransferase (ALT/SGPT) 28 U/L (16-63) Alkaline Phosphatase 107 U/L (46-116) C-Reactive Protein, Quantitative 16.9 mg/L (0-3.3) Total Protein 6.7 g/dL (6.4-8.2) Albumin 2.8 g/dL (3.4-5.0) Albumin/Globulin Ratio 0.7 (1.0-1.7) Lactic Acid Level 0.9 mmol/L (0.4-2.0) Urine Collection Type Unknown Urine Color Yellow Urine Clarity Clear Urine pH 7.0 Urine Specific [place] 1.015 Urine Protein Negative mg/dL (NEG-TRACE) Urine Glucose (UA) Negative mg/dL (NEG) Urine Ketones (Stick) Trace mg/dL (NEG) Urine Blood Negative (NEG) Urine Nitrite Negative (NEG) Urine Bilirubin Negative (NEG) Urine Urobilinogen Dipstick 1.0 mg/dL (0.2 mg/dL) Urine Leukocyte Esterase Moderate (NEG) Urine RBC 3-5 /HPF (0-2) Urine WBC >40 /HPF (0-4) Urine Squamous Epithelial Cells Few /LPF Urine Bacteria Moderate /HPF (0-FEW) Urine Mucus Mod /LPF VTE Prophylaxis Ordered VTE Prophylaxis Devices: Yes VTE Pharmacological Prophylaxi: Yes Assessment/Plan Assessment/Plan Left lower extremity cellulitis, left upper ext cellulitis Possibly undiagnosed psoriasis Multiple petechia right upper extremity, right lower extremity Self-pay History sepsis with negative blood cultures PLAN: Empiric Antibiotics Consult ID I could not help but wonder maybe he has undiagnosed psoriasis Consult dermatology In the meantime I will start some Dovonex cream follow labs and cultures Home meds I have reconciled Discussed with him, he agrees KEELY CANO MD Dec 28, 2017 10:21
--- NOTE | 2017-12-28 11:23 | PDOC ---
Infectious Disease Note Vital Sign Vital Signs Vital Signs Date Time Temp Pulse Resp B/P (MAP) Pulse Ox O2 Delivery O2 Flow Rate FiO2 12/28/17 07:52 Room Air 12/28/17 07:45 98.3 72 16 123/67 (85) 96 98.3 Labs Lab Laboratory Tests Test 12/27/17 22:00 12/27/17 22:45 12/27/17 23:15 White Blood Count 10.9 x10^3/uL (4.0-11.0) Red Blood Count 4.61 x10^6/uL (4.30-5.70) Hemoglobin 14.7 g/dL (13.0-17.5) Hematocrit 41.3 % (39.0-53.0) Mean Corpuscular Volume 90 fL (79-100) Mean Corpuscular Hemoglobin 32 pg (25-35) Mean Corpuscular Hemoglobin Concent 36 g/dL (31-37) Red Cell Distribution Width 13.5 % (11.5-14.5) Platelet Count 303 x10^3/uL (140-400) Neutrophils (%) (Auto) 56 % (31-73) Lymphocytes (%) (Auto) 27 % (24-48) Monocytes (%) (Auto) 6 % (0-9) Eosinophils (%) (Auto) 10 % (0-3) Basophils (%) (Auto) 1 % (0-3) Neutrophils # (Auto) 6.1 x10^3uL (1.8-7.7) Lymphocytes # (Auto) 2.9 x10^3/uL (1.0-4.8) Monocytes # (Auto) 0.6 x10^3/uL (0.0-1.1) Eosinophils # (Auto) 1.1 x10^3/uL (0.0-0.7) Basophils # (Auto) 0.1 x10^3/uL (0.0-0.2) Erythrocyte Sedimentation Rate 21 (0-15) Prothrombin Time 12.9 SEC (11.7-14.0) Prothromb Time International Ratio 1.0 (0.8-1.1) Activated Partial Thromboplast Time 29 SEC (24-38) Sodium Level 143 mmol/L (136-145) Potassium Level 3.5 mmol/L (3.5-5.1) Chloride Level 107 mmol/L (98-107) Carbon Dioxide Level 28 mmol/L (21-32) Anion Gap 8 (6-14) Blood Urea Nitrogen 8 mg/dL (8-26) Creatinine 0.9 mg/dL (0.7-1.3) Estimated GFR (Cockcroft-Gault) 91.3 BUN/Creatinine Ratio 9 (6-20) Glucose Level 87 mg/dL (70-99) Calcium Level 8.7 mg/dL (8.5-10.1) Magnesium Level 2.0 mg/dL (1.8-2.4) Total Bilirubin 0.2 mg/dL (0.2-1.0) Aspartate Amino Transf (AST/SGOT) 19 U/L (15-37) Alanine Aminotransferase (ALT/SGPT) 28 U/L (16-63) Alkaline Phosphatase 107 U/L (46-116) C-Reactive Protein, Quantitative 16.9 mg/L (0-3.3) Total Protein 6.7 g/dL (6.4-8.2) Albumin 2.8 g/dL (3.4-5.0) Albumin/Globulin Ratio 0.7 (1.0-1.7) Lactic Acid Level 0.9 mmol/L (0.4-2.0) Urine Collection Type Unknown Urine Color Yellow Urine Clarity Clear Urine pH 7.0 Urine Specific [place] 1.015 Urine Protein Negative mg/dL (NEG-TRACE) Urine Glucose (UA) Negative mg/dL (NEG) Urine Ketones (Stick) Trace mg/dL (NEG) Urine Blood Negative (NEG) Urine Nitrite Negative (NEG) Urine Bilirubin Negative (NEG) Urine Urobilinogen Dipstick 1.0 mg/dL (0.2 mg/dL) Urine Leukocyte Esterase Moderate (NEG) Urine RBC 3-5 /HPF (0-2) Urine WBC >40 /HPF (0-4) Urine Squamous Epithelial Cells Few /LPF Urine Bacteria Moderate /HPF (0-FEW) Urine Mucus Mod /LPF Objective Assessment Pruritic rash involving both arms and lower legs s/p dose Decadron and Benadryl in ER -CRP 16.9 h/o MSSA and group A strep cellulitis 3 wks ago -Finished Rx Cipro and Doxy Pyuria HTN Plan Plan of Care Lesions are drying up Continue Rocephin d/c cipro and doxy f/u Monitor labs/temp Supportive care D/w RN Thank you [phone] \ Patient seen and examined. Chart reviewed in detail. Case discussed with BAKELITE MOLDER. Agree with above Plan BETH VELAZQUEZ APRN Dec 28, 2017 11:22 ROMEL MATSON MD Dec 28, 2017 19:25
[2017-12-28 11:29] VITALS: BP 123/66
[2017-12-28] MEDS ORDERED: cefTRIAXone IV Push 1 GM VIAL. IVP ONE (11:30)
[2017-12-28] MEDS: cefTRIAXone IV Push 1 GM VIAL. IVP SCH (12:00)
[2017-12-28] MEDS ORDERED: DOXYCYCLINE HYCLATE 100 MG TABLET PO SCH (12:00)
[2017-12-28] MEDS ORDERED: CIPROFLOXACIN HCL 250 MG TABLET. PO SCH (12:00)
[2017-12-28 15:23] VITALS: BP 115/71
[2017-12-28 19:00] VITALS: BP 132/83
[2017-12-28] MEDS: LACTOBACILLUS RHAMNOSUS GG 1 CAPSULE. PO SCH (20:22)
[2017-12-28] MEDS: CALCIPOTRIENE 0.005% TOPICAL CREAM 60GM TUBE. TP SCH (20:23)
[2017-12-28 23:00] VITALS: BP 127/72
--- NOTE | 2017-12-28 23:26 | CONS ---
DATE OF CONSULTATION: 12/28/2017 REFERRING PHYSICIAN: Lyly Haile MD REASON FOR CONSULTATION: Cellulitis of left arm and left leg. HISTORY OF PRESENT ILLNESS: This patient is a 47-year-old male who was hospitalized about 3 weeks ago for cellulitis who was hospitalized 3 weeks ago for sepsis with cellulitis of left leg (refer to consult note from 11/30 for further details). He responded well to antibiotic therapy and was discharged on Cipro and doxycycline. He says he finished antibiotics around the . A few days later, he noticed a cluster of small lesions described as "pus pockets" localized to both wrists and lower leg areas. Within 24 hours or so, the lesions spread upward towards elbows and knees, which opened up and drained. Lesions are now drying up. However, the rash has been painful and itchy. He has tried an [id number] topical triple antibiotic and cortisone 10 with some relief. On arrival to the ER, he was afebrile with a normal white blood cell count and a sed rate of 21. Ultrasound of left upper and left lower extremities showed no evidence of DVT. He was restarted on ciprofloxacin and doxycycline. Urinalysis was suggestive of infection as well and he was given a one-time dose of ceftriaxone. The patient denies fevers, chills, sweats or body aches. He denies previous type rashes. He denies outdoor activities. He denies headache, nasal/sinus congestion, sore throat. Denies cough, shortness of air or chest discomfort. Denies nausea, vomiting or diarrhea. Denies dysuria, frequency or urgency. PAST MEDICAL HISTORY: Hypertension. MSSA and beta hemolytic Streptococcus group A skin infection from 11/30/2017. PAST SURGICAL HISTORY: Orbital surgery. FAMILY HISTORY: Noncontributory. SOCIAL HISTORY: The patient is a smoker. He lives at home. ALLERGIES: No known drug allergies. MEDICATIONS: Ciprofloxacin, doxycycline and a one-time dose of ceftriaxone. Other medications are available and have been reviewed on the MAY. Dexamethasone and Benadryl. REVIEW OF SYSTEMS: Per HPI, otherwise all other review of systems are negative. PHYSICAL EXAMINATION: GENERAL: The patient is lying down, resting quietly. VITAL SIGNS: Temperature is 98.3, blood pressure 123/67, heart rate 72, respiratory rate 16, pulse oximetry 96% on room air. BMI 26. HEENT: Normal conjunctivae. Oral mucosa is pink and moist. NECK: Supple. LUNGS: Clear to auscultation. HEART: S1 and S2. ABDOMEN: Bowel sounds active, soft, nontender. EXTREMITIES: Trace edema in lower extremities bilaterally. SKIN: He has a rash with dry scaling localized to both upper extremities and lower extremities, worse on the left side compared to the right. NEUROLOGIC: Alert and oriented times 3. LABORATORY DATA: Recent WBC 10.9, hemoglobin 14.7, platelets 303,000. Sed rate 21. Electrolytes are unremarkable. Creatinine 0.9, BUN 8. Lactic acid 0.9. AST 19, ALT 28, total bilirubin 0.2, albumin 2.8. Urinalysis showed WBCs greater than 40, moderate leukocyte esterase and bacteria. Urine and blood cultures pending. IMAGING DATA: Ultrasound per HPI. IMPRESSION: 1. Pruritic rash involving both arms and lower extremities. 2. History of Methicillin-sensitive Staphylococcus aureus and group A strep cellulitis about 3 weeks ago. 3. Pyuria. 4. Hypertension. PLAN: The lesions appear to be drying up. Continue the Rocephin. Discontinue the Cipro and doxycycline. We will follow up on cultures. Dermatology has been consulted. Monitor laboratory values and temperature. Supportive care. Thank you, Dr. Haile, for asking us to participate in this patient's care. Should you have further questions or concerns, please call. ROMEL MATSON MD DR: YURIDIA/rom JOB#: [id number] / [id number]
[2017-12-29 03:00] VITALS: BP 120/78
[2017-12-29 07:00] VITALS: BP 146/80
[2017-12-29] MEDS: LACTOBACILLUS RHAMNOSUS GG 1 CAPSULE. PO SCH ×2 (09:00→20:54)
[2017-12-29] MEDS: CALCIPOTRIENE 0.005% TOPICAL CREAM 60GM TUBE. TP SCH ×2 (10:28→20:54)
[2017-12-29 11:00] VITALS: BP 155/89
--- NOTE | 2017-12-29 12:19 | PDOC ---
Infectious Disease Note Subjective: Subjective pt continues to have itchy skin rash no f/c/n/v/d no oral sores no gu lesions ROS: ROS Negative except for above. Vital Signs: Vital Signs Vital Signs Date Time Temp Pulse Resp B/P (MAP) Pulse Ox O2 Delivery O2 Flow Rate FiO2 12/29/17 11:00 98.0 88 18 155/89 (111) 99 Room Air 98.0 Physical Exam: PHYSICAL EXAM GENERAL: The patient is lying down, resting quietly HEENT: Normal conjunctivae. Oral mucosa is pink and moist. NECK: Supple. LUNGS: Clear to auscultation. HEART: S1 and S2. ABDOMEN: Bowel sounds active, soft, nontender. EXTREMITIES: Trace edema in lower extremities bilaterally. SKIN: He has a rash with dry scaling localized to both upper extremities and lower extremities, worse on the left side compared to the right. NEUROLOGIC: Alert and oriented times 3. Medications: Inpatient Meds: Current Medications Medications (Trade) Dose Ordered Sig/Lety Start Time Stop Time Status Last Admin Dose Admin Acetaminophen (Tylenol) 650 mg PRN Q4HRS PRN 12/27/17 23:30 12/28/17 23:29 DC 12/28/17 08:38 650 MG Calcipotriene (Dovonex) 1 radha BID 12/28/17 21:00 12/29/17 10:28 1 RADHA Ceftriaxone Sodium 1 gm/ Dextrose 50 ml @ 100 mls/hr Q24H 12/28/17 11:00 UNV Ceftriaxone Sodium (Rocephin) 1 gm Q24H 12/28/17 12:00 12/28/17 12:00 1 GM Celecoxib (CeleBREX) 100 mg BIDWMEALS 12/28/17 09:00 12/28/17 10:27 DC 12/28/17 08:38 100 MG Ciprofloxacin (Cipro) 500 mg BID 12/28/17 12:00 12/28/17 12:00 DC Dexamethasone Sodium Phosphate (Decadron) 10 mg 1X ONCE 12/27/17 23:30 12/27/17 23:31 DC 12/28/17 00:06 10 MG Diphenhydramine HCl (Benadryl) 50 mg 1X ONCE 12/27/17 22:15 12/27/17 22:16 DC 12/27/17 22:02 50 MG Doxycycline Hyclate (Vibra-Tab) 100 mg BID 12/28/17 12:00 12/28/17 12:00 DC Ibuprofen (Motrin) 400 mg PRN Q6HRS PRN 12/28/17 10:30 Labetalol HCl (Normodyne Iv Push) 20 mg PRN Q2HR PRN 12/28/17 08:30 Lactobacillus Rhamnosus (Culturelle) 1 cap BID 12/28/17 21:00 12/29/17 09:00 1 CAP Ondansetron HCl (Zofran) 4 mg PRN Q6HRS PRN 12/28/17 08:30 Pharmacy Consult (C.diff Med Screen By Rx) 1 each 1X ONCE 12/28/17 02:15 12/28/17 02:18 DC Sodium Chloride 1,000 ml @ 1,000 mls/hr 1X ONCE 12/27/17 21:30 12/27/17 22:29 DC 12/27/17 22:02 1,000 MLS/HR Objective: Assessment: 1. Pruritic rash involving both arms and lower extremities.BC neg so far 2. History of Methicillin-sensitive Staphylococcus aureus and group A strep cellulitis about 3 weeks ago. 3. Pyuria.UC pending 4. Hypertension. Plan: Plan of Care Lesions are drying up Continue Rocephin f/u UC Monitor labs/temp Supportive care check RPR D/w SHADY HURD MD Dec 29, 2017 12:19
[2017-12-29] MEDS: cefTRIAXone IV Push 1 GM VIAL. IVP SCH (13:05)
[2017-12-29 15:00] VITALS: BP 116/66
[2017-12-29] MEDS ORDERED: ONDANSETRON PF 4 MG/2 ML VIAL. IV PRN (15:15)
[2017-12-29] MEDS ORDERED: DOCUSATE SODIUM 100 MG CAPSULE. PO PRN (15:15)
[2017-12-29] MEDS ORDERED: ACETAMINOPHEN 325 MG TABLET. PO PRN (15:15)
[2017-12-29] MEDS ORDERED: MORPHINE SULFATE 2 MG/ML VIAL. IV PRN (15:15)
[2017-12-29] MEDS ORDERED: traMADol 50 MG TABLET PO PRN (15:15)
--- NOTE | 2017-12-29 15:16 | PDOC ---
PROGRESS NOTES Chief Complaint Chief Complaint Left lower extremity cellulitis, left upper ext cellulitis Possibly undiagnosed psoriasis Multiple petechia right upper extremity, right lower extremity Self-pay History sepsis with negative blood cultures plan; fu with id, derm cont ceftriaxone i talked to Dr. Mann today she will come to see pt. kelly prn dvt ppx History of Present Illness History of Present Illness ROS: no fever, chills, sob or chest pain left forearm, left leg swelling, erythema slightly better high ESO Vitals Vitals Vital Signs Date Time Temp Pulse Resp B/P (MAP) Pulse Ox O2 Delivery O2 Flow Rate FiO2 12/29/17 11:00 98.0 88 18 155/89 (111) 99 Room Air 98.0 Physical Exam Physical Exam GENERAL: The patient is lying down, resting quietly HEENT: Normal conjunctivae. Oral mucosa is pink and moist. NECK: Supple. LUNGS: Clear to auscultation. HEART: S1 and S2. ABDOMEN: Bowel sounds active, soft, nontender. EXTREMITIES: Trace edema in lower extremities bilaterally. SKIN: He has a rash with dry scaling localized to left upper extremities and lower extremities NEUROLOGIC: Alert and oriented times 3. General: Alert, Oriented X3, Cooperative, No acute distress Abdomen: Normal bowel sounds, Soft, No tenderness, No hepatosplenomegaly, No masses Extremities: Other (a petechial barbara Multiple petecchiae in the right upper extremity, right lower extremity-he is significant scaling on the left upper and left lower extremity with some redness and mild to moderate swelling) Skin: Other (refer to above) Assessment and Plan Assessmemt and Plan Problems Medical Problems: (1) Hypertension Status: Acute (2) Pruritic erythematous rash Status: Acute (3) UTI (urinary tract infection) Status: Acute Comment Review of Relevant I have reviewed the following items alem (where applicable) has been applied. Labs Laboratory Tests Test 12/27/17 22:00 12/27/17 22:45 12/27/17 23:15 White Blood Count 10.9 x10^3/uL (4.0-11.0) Red Blood Count 4.61 x10^6/uL (4.30-5.70) Hemoglobin 14.7 g/dL (13.0-17.5) Hematocrit 41.3 % (39.0-53.0) Mean Corpuscular Volume 90 fL (79-100) Mean Corpuscular Hemoglobin 32 pg (25-35) Mean Corpuscular Hemoglobin Concent 36 g/dL (31-37) Red Cell Distribution Width 13.5 % (11.5-14.5) Platelet Count 303 x10^3/uL (140-400) Neutrophils (%) (Auto) 56 % (31-73) Lymphocytes (%) (Auto) 27 % (24-48) Monocytes (%) (Auto) 6 % (0-9) Eosinophils (%) (Auto) 10 % (0-3) Basophils (%) (Auto) 1 % (0-3) Neutrophils # (Auto) 6.1 x10^3uL (1.8-7.7) Lymphocytes # (Auto) 2.9 x10^3/uL (1.0-4.8) Monocytes # (Auto) 0.6 x10^3/uL (0.0-1.1) Eosinophils # (Auto) 1.1 x10^3/uL (0.0-0.7) Basophils # (Auto) 0.1 x10^3/uL (0.0-0.2) Erythrocyte Sedimentation Rate 21 (0-15) Prothrombin Time 12.9 SEC (11.7-14.0) Prothromb Time International Ratio 1.0 (0.8-1.1) Activated Partial Thromboplast Time 29 SEC (24-38) Sodium Level 143 mmol/L (136-145) Potassium Level 3.5 mmol/L (3.5-5.1) Chloride Level 107 mmol/L (98-107) Carbon Dioxide Level 28 mmol/L (21-32) Anion Gap 8 (6-14) Blood Urea Nitrogen 8 mg/dL (8-26) Creatinine 0.9 mg/dL (0.7-1.3) Estimated GFR (Cockcroft-Gault) 91.3 BUN/Creatinine Ratio 9 (6-20) Glucose Level 87 mg/dL (70-99) Calcium Level 8.7 mg/dL (8.5-10.1) Magnesium Level 2.0 mg/dL (1.8-2.4) Total Bilirubin 0.2 mg/dL (0.2-1.0) Aspartate Amino Transf (AST/SGOT) 19 U/L (15-37) Alanine Aminotransferase (ALT/SGPT) 28 U/L (16-63) Alkaline Phosphatase 107 U/L (46-116) C-Reactive Protein, Quantitative 16.9 mg/L (0-3.3) Total Protein 6.7 g/dL (6.4-8.2) Albumin 2.8 g/dL (3.4-5.0) Albumin/Globulin Ratio 0.7 (1.0-1.7) Lactic Acid Level 0.9 mmol/L (0.4-2.0) Urine Collection Type Unknown Urine Color Yellow Urine Clarity Clear Urine pH 7.0 Urine Specific [place] 1.015 Urine Protein Negative mg/dL (NEG-TRACE) Urine Glucose (UA) Negative mg/dL (NEG) Urine Ketones (Stick) Trace mg/dL (NEG) Urine Blood Negative (NEG) Urine Nitrite Negative (NEG) Urine Bilirubin Negative (NEG) Urine Urobilinogen Dipstick 1.0 mg/dL (0.2 mg/dL) Urine Leukocyte Esterase Moderate (NEG) Urine RBC 3-5 /HPF (0-2) Urine WBC >40 /HPF (0-4) Urine Squamous Epithelial Cells Few /LPF Urine Bacteria Moderate /HPF (0-FEW) Urine Mucus Mod /LPF Microbiology 12/28/17 Blood Culture - Preliminary, Resulted NO GROWTH AFTER 1 DAY Medications Current Medications Diphenhydramine HCl (Benadryl) 25 mg 1X ONCE IVP ; Start 12/27/17 at 21:30; Stop 12/27/17 at 21:31; Status Cancel Sodium Chloride 1,000 ml @ 1,000 mls/hr 1X ONCE IV Last administered on 12/27at 22:02; Start 12/27/17 at 21:30; Stop 12/27/17 at 22:29; Status DC Diphenhydramine HCl (Benadryl) 50 mg 1X ONCE PO Last administered on at 22:02; Start 12/27/17 at 22:15; Stop 12/27/17 at 22:16; Status DC Dexamethasone Sodium Phosphate (Decadron) 10 mg 1X ONCE IV Last administered on 12/28/17at 00:06; Start 12/27/17 at 23:30; Stop 12/27/17 at 23:31; Status DC Ondansetron HCl (Zofran) 4 mg PRN Q8HRS PRN IV NAUSEA/VOMITING 1ST CHOICE; Start 12/27/17 at 23:30; Stop 12/28/17 at 08:29; Status DC Acetaminophen (Tylenol) 650 mg PRN Q4HRS PRN PO FEVER Last administered on at 08:38; Start 12/27/17 at 23:30; Stop 12/28/17 at 23:29; Status DC Labetalol HCl (Normodyne Iv Push) 10 mg 1X ONCE IVP Last administered on 12/28at 00:07; Start 12/28/17 at 00:00; Stop 12/28/17 at 00:01; Status DC Pharmacy Consult (C.diff Med Screen By Rx) 1 each 1X ONCE [facility] ; Start 12/28/17 at 02:15; Stop 12/28/17 at 02:18; Status DC Ondansetron HCl (Zofran) 4 mg PRN Q6HRS PRN IV NAUSEA/VOMITING 1ST CHOICE; Start 12/28/17 at 08:30 Celecoxib (CeleBREX) 100 mg BIDWMEALS PO Last administered on 12/28/17at 08:38 ; Start 12/28/17 at 09:00; Stop 12/28/17 at 10:27; Status DC Labetalol HCl (Normodyne Iv Push) 20 mg PRN Q2HR PRN IVP HYPERTENSION, SEE COMMENTS; Start 12/28/17 at 08:30 Ceftriaxone Sodium 1 gm/ Dextrose 50 ml @ 100 mls/hr 1X ONCE IV ; Start 12/28 at 10:30; Stop 12/28/17 at 10:59; Status UNV Calcipotriene (Dovonex) 1 radha BID TP Last administered on 12/29/17at 10:28; Start 12/28/17 at 21:00 Ibuprofen (Motrin) 400 mg PRN Q6HRS PRN PO INFLAMMATION; Start 12/28/17 at 10: 30 Ceftriaxone Sodium 50 ml @ 100 mls/hr 1X ONCE IV ; Start 12/28/17 at 10:30; Stop 12/28/17 at 10:59; Status Cancel Ciprofloxacin (Cipro) 500 mg BID PO ; Start 12/28/17 at 12:00; Stop 12/28/17 at 12:00; Status DC Doxycycline Hyclate (Vibra-Tab) 100 mg BID PO ; Start 12/28/17 at 12:00; Stop 12/28/17 at 12:00; Status DC Ceftriaxone Sodium (Rocephin) 1 gm ONCE@1130 ONCE IVP ; Start 12/28/17 at 11: 30; Stop 12/28/17 at 11:31; Status DC Ceftriaxone Sodium 1 gm/ Dextrose 50 ml @ 100 mls/hr Q24H IV ; Start 12/28/17 at 11:00; Status UNV Ceftriaxone Sodium (Rocephin) 1 gm Q24H IVP Last administered on 12/29/17at 13: 05; Start 12/28/17 at 12:00 Lactobacillus Rhamnosus (Culturelle) 1 cap BID PO Last administered on at 09:00; Start 12/28/17 at 21:00 Active Scripts Active Vitals/I & O Vital Sign - Last 24 Hours 12/28/17 12/28/17 12/28/17 12/28/17 15:23 19:00 20:00 23:00 Temp 99.7 98.9 98.5 99.7 98.9 98.5 Pulse 78 89 66 Resp 18 18 18 B/P (MAP) 115/71 (86) 132/83 (99) 127/72 (90) Pulse Ox 97 97 98 O2 Delivery Room Air Room Air Room Air Room Air 12/29/17 12/29/17 12/29/17 03:00 07:00 11:00 Temp 98.5 97.8 98.0 98.5 97.8 98.0 Pulse 70 63 88 Resp 18 20 18 B/P (MAP) 120/78 (92) 146/80 (102) 155/89 (111) Pulse Ox 97 98 99 O2 Delivery Room Air Room Air Room Air Intake and Output 12/28/17 12/28/17 12/29/17 15:00 23:00 07:00 Intake Total 120 ml 0 ml 0 ml Balance 120 ml 0 ml 0 ml JANKI WALKER MD Dec 29, 2017 15:16
--- NOTE | 2017-12-29 17:21 | PDOC ---
SUBJECTIVE Subjective Evolving pruritic rash. Beginning on left leg and evolving to involve left arm then other arm and leg. He was discharged from [facility] 3+ weeks ago for cellulitis left leg (fever, high WBC and high ESR) UTI also noted (patient really didn't know what his diagnosis was). About 1 week ago (he had finished his oral antibiotics from his hospitalization) this developed. No other meds. This episode is very different from the cellulitis admission. OBJECTIVE Vital Signs Vital Signs Date Time Temp Pulse Resp B/P (MAP) Pulse Ox O2 Delivery O2 Flow Rate FiO2 12/29/17 15:00 97.8 67 18 116/66 (83) 97 Room Air 97.8 12/29/17 11:00 98.0 88 18 155/89 (111) 99 Room Air 98.0 12/29/17 08:30 Room Air 12/29/17 07:00 97.8 63 20 146/80 (102) 98 Room Air 97.8 12/29/17 03:00 98.5 70 18 120/78 (92) 97 Room Air 98.5 12/28/17 23:00 98.5 66 18 127/72 (90) 98 Room Air 98.5 12/28/17 20:00 Room Air 12/28/17 19:00 98.9 89 18 132/83 (99) 97 Room Air 98.9 I & O Intake and Output 12/29/17 07:00 Intake Total 120 ml Balance 120 ml Intake Oral 120 ml # Voids 1 PHYSICAL EXAM Physical Exam eczematous appearing eruption especially left antecubital fossa and left lower leg extending to thigh. erythema, scale denudation in areas. no vesiculation or pustules noted. no burrows suggestive of scabetic infection. he does have crusting and scaling on his hands but again not scabetic in appearance. Faint macular eruption on anterior torso. Early involvement of right arm and leg with a similar process. He feels well other than itch. Labs normal except for eosinophilia, and WBC in urine( UTI would be unusual in a man his age). ASSESSMENT/PLAN Assessment/Plan Some kind of hypersensitivity eruption, possibly even to antibiotics he took from previous hospitalization. Sparing of his face and no serious systemic features suggests that DRESS is unlikely (life threating drug reaction). Concern with eosinophilia could be drug allergy or parasitic infection (diff dx is large) Skin biopsy done. Suggest supportive treatment with emollients and damp compresses. Have antihistamines (Atarax) as a standing order, not prn. Check Stool for O&P. VALARIE MCCORD MD Dec 29, 2017 17:21
[2017-12-29] MEDS: ENOXAPARIN 40 MG/0.4 ML SYRINGE. SQ SCH (18:03)
--- NOTE | 2017-12-29 18:30 | OP ---
DATE OF SURGERY: PROCEDURE: Skin biopsy. DESCRIPTION OF PROCEDURE: After informed signed consent, prepped left arm with Betadine, local 1% lidocaine with epinephrine, 4 mm punch biopsy, skin left arm sent to pathology. 4-0 nylon sutures. Band-Aid applied and orders written. Sutures to be removed in 7-10 days. VALARIE MCCORD MD DR: JENNIFER/rom JOB#: [id number] / [id number]
[2017-12-29 19:00] VITALS: BP 144/75
[2017-12-29] MEDS: diphenhydrAMINE HCL 25 MG CAPSULE PO PRN (20:54)
[2017-12-29 23:00] VITALS: BP 150/80
[2017-12-30 03:00] VITALS: BP 132/69
[2017-12-30 04:46] LABS: BASO # 0.1 x10^3/uL (0.0-0.2); BASO % 1 % (0-3); EOS % 10 % (0-3); HEMATOCRIT 41.3 % (39.0-53.0); HEMOGLOBIN 14.4 g/dL (13.0-17.5); LYMPH # 4.4 x10^3/uL (1.0-4.8); LYMPH % 41 % (24-48); MEAN CORPUSCULAR HEMOGLOBIN 31 pg (25-35); MEAN CORPUSCULAR HGB CONC 35 g/dL (31-37); MEAN CORPUSCULAR VOLUME 90 fL (79-100); MONO # 0.7 x10^3/uL (0.0-1.1); MONO % 7 % (0-9); NEUT # 4.5 x10^3uL (1.8-7.7); NEUT % 42 % (31-73); PLATELET COUNT 316 x10^3/uL (140-400); RED BLOOD COUNT 4.59 x10^6/uL (4.30-5.70); RED CELL DISTRIBUTION WIDTH 13.7 % (11.5-14.5); WHITE BLOOD COUNT 10.8 x10^3/uL (4.0-11.0)
[2017-12-30 04:52] LABS: CALCIUM 8.8 mg/dL (8.5-10.1); CREATININE 0.9 mg/dL (0.7-1.3); GFR 91.3; POTASSIUM 3.6 mmol/L (3.5-5.1)
[2017-12-30 07:00] VITALS: BP 157/82
[2017-12-30] MEDS: LACTOBACILLUS RHAMNOSUS GG 1 CAPSULE. PO SCH ×2 (09:48→21:22)
[2017-12-30] MEDS: CALCIPOTRIENE 0.005% TOPICAL CREAM 60GM TUBE. TP SCH ×2 (09:48→21:23)
[2017-12-30] MEDS: diphenhydrAMINE HCL 25 MG CAPSULE PO PRN (09:48)
--- NOTE | 2017-12-30 10:46 | PDOC ---
Infectious Disease Note Subjective: Subjective pt continues to have itchy skin rash mainly over both ext, LT> Rt no f/c/n/v/d no oral sores no gu lesions ROS: ROS Negative except for above. Vital Signs: Vital Signs Vital Signs Date Time Temp Pulse Resp B/P (MAP) Pulse Ox O2 Delivery O2 Flow Rate FiO2 12/30/17 07:00 97.5 77 18 157/82 (107) 98 Room Air 97.5 Physical Exam: PHYSICAL EXAM GENERAL: The patient is lying down, resting quietly HEENT: Normal conjunctivae. Oral mucosa is pink and moist. NECK: Supple. LUNGS: Clear to auscultation. HEART: S1 and S2. ABDOMEN: Bowel sounds active, soft, nontender. EXTREMITIES: Trace edema in lower extremities bilaterally. SKIN: He has a rash with dry scaling localized to left upper extremities and lower extremities NEUROLOGIC: Alert and oriented times 3. Medications: Inpatient Meds: Current Medications Medications (Trade) Dose Ordered Sig/Lety Start Time Stop Time Status Last Admin Dose Admin Acetaminophen (Tylenol) 650 mg PRN Q6HRS PRN 12/29/17 15:15 Calcipotriene (Dovonex) 1 radha BID 12/28/17 21:00 12/30/17 09:48 1 RADHA Ceftriaxone Sodium 1 gm/ Dextrose 50 ml @ 100 mls/hr Q24H 12/28/17 11:00 UNV Ceftriaxone Sodium (Rocephin) 1 gm Q24H 12/28/17 12:00 12/29/17 13:05 1 GM Celecoxib (CeleBREX) 100 mg BIDWMEALS 12/28/17 09:00 12/28/17 10:27 DC 12/28/17 08:38 100 MG Ciprofloxacin (Cipro) 500 mg BID 12/28/17 12:00 12/28/17 12:00 DC Dexamethasone Sodium Phosphate (Decadron) 10 mg 1X ONCE 12/27/17 23:30 12/27/17 23:31 DC 12/28/17 00:06 10 MG Diphenhydramine HCl (Benadryl) 25 mg PRN Q6HRS PRN 12/29/17 15:30 12/30/17 09:48 25 MG Docusate Sodium (Colace) 100 mg PRN DAILY PRN 12/29/17 15:15 Doxycycline Hyclate (Vibra-Tab) 100 mg BID 12/28/17 12:00 12/28/17 12:00 DC Enoxaparin Sodium (Lovenox 40mg Syringe) 40 mg Q24H 12/29/17 16:00 12/29/17 18:03 40 MG Hydroxyzine HCl (Atarax) 10 mg Q6HRS 12/30/17 12:00 Ibuprofen (Motrin) 400 mg PRN Q6HRS PRN 12/28/17 10:30 Labetalol HCl (Normodyne Iv Push) 20 mg PRN Q2HR PRN 12/28/17 08:30 Lactobacillus Rhamnosus (Culturelle) 1 cap BID 12/28/17 21:00 12/30/17 09:48 1 CAP Morphine Sulfate (Morphine Sulfate) 2 mg PRN Q2HR PRN 12/29/17 15:15 Ondansetron HCl (Zofran) 4 mg PRN Q6HRS PRN 12/29/17 15:15 UNV Pharmacy Consult (C.diff Med Screen By Rx) 1 each 1X ONCE 12/28/17 02:15 12/28/17 02:18 DC Sodium Chloride 1,000 ml @ 1,000 mls/hr 1X ONCE 12/27/17 21:30 12/27/17 22:29 DC 12/27/17 22:02 1,000 MLS/HR Tramadol HCl (Ultram) 50 mg PRN Q6HRS PRN 12/29/17 15:15 Labs: Lab Laboratory Tests Test 12/30/17 03:45 White Blood Count 10.8 x10^3/uL (4.0-11.0) Red Blood Count 4.59 x10^6/uL (4.30-5.70) Hemoglobin 14.4 g/dL (13.0-17.5) Hematocrit 41.3 % (39.0-53.0) Mean Corpuscular Volume 90 fL (79-100) Mean Corpuscular Hemoglobin 31 pg (25-35) Mean Corpuscular Hemoglobin Concent 35 g/dL (31-37) Red Cell Distribution Width 13.7 % (11.5-14.5) Platelet Count 316 x10^3/uL (140-400) Neutrophils (%) (Auto) 42 % (31-73) Lymphocytes (%) (Auto) 41 % (24-48) Monocytes (%) (Auto) 7 % (0-9) Eosinophils (%) (Auto) 10 % (0-3) Basophils (%) (Auto) 1 % (0-3) Neutrophils # (Auto) 4.5 x10^3uL (1.8-7.7) Lymphocytes # (Auto) 4.4 x10^3/uL (1.0-4.8) Monocytes # (Auto) 0.7 x10^3/uL (0.0-1.1) Eosinophils # (Auto) 1.0 x10^3/uL (0.0-0.7) Basophils # (Auto) 0.1 x10^3/uL (0.0-0.2) Sodium Level 141 mmol/L (136-145) Potassium Level 3.6 mmol/L (3.5-5.1) Chloride Level 106 mmol/L (98-107) Carbon Dioxide Level 27 mmol/L (21-32) Anion Gap 8 (6-14) Blood Urea Nitrogen 14 mg/dL (8-26) Creatinine 0.9 mg/dL (0.7-1.3) Estimated GFR (Cockcroft-Gault) 91.3 Glucose Level 88 mg/dL (70-99) Calcium Level 8.8 mg/dL (8.5-10.1) Treponema pallidum Antibody Nonreactive (Nonreactive) Objective: Assessment: 1. Pruritic rash involving both arms and lower extremities. with eosinophilia 2. History of Methicillin-sensitive Staphylococcus aureus and group A strep cellulitis about 3 weeks ago. 3. Pyuria.UC pending 4. Hypertension. Plan: Plan of Care Lesions are drying up [facility] ward derm did biopsy agree with stool O and P f/u UC Monitor labs/temp Supportive care f/u RPR D/w SHADY HURD MD Dec 30, 2017 10:46
[2017-12-30 11:00] VITALS: BP 139/79
[2017-12-30] MEDS: hydrOXYzine 10 MG TABLET PO SCH ×3 (12:53→23:54)
--- NOTE | 2017-12-30 13:46 | PDOC ---
PROGRESS NOTES Chief Complaint Chief Complaint left upper and lower itchy skin rash suspicious hyperactivity with eosinophilia recent Left lower extremity cellulitis, left upper ext cellulitis Possibly undiagnosed psoriasis Multiple petechia right upper extremity, right lower extremity Self-pay History sepsis with negative blood cultures plan; fu with id, derm bx done dced ceftriaxone as per ID add hydroxyzine q6h as per derm, check stool o and p benadryl prn dvt ppx dc soon History of Present Illness History of Present Illness ROS: no fever, chills, sob or chest pain left forearm, left leg swelling, erythema slightly better high ESO Vitals Vitals Vital Signs Date Time Temp Pulse Resp B/P (MAP) Pulse Ox O2 Delivery O2 Flow Rate FiO2 12/30/17 11:00 98.6 66 18 139/79 (99) 97 Room Air 98.6 Physical Exam Physical Exam GENERAL: The patient is lying down, resting quietly HEENT: Normal conjunctivae. Oral mucosa is pink and moist. NECK: Supple. LUNGS: Clear to auscultation. HEART: S1 and S2. ABDOMEN: Bowel sounds active, soft, nontender. EXTREMITIES: Trace edema in lower extremities bilaterally. SKIN: He has a rash with dry scaling localized to left upper extremities and lower extremities NEUROLOGIC: Alert and oriented times 3. General: Alert, Oriented X3, Cooperative, No acute distress Abdomen: Normal bowel sounds, Soft, No tenderness, No hepatosplenomegaly, No masses Extremities: Other (a petechial barbara Multiple petecchiae in the right upper extremity, right lower extremity-he is significant scaling on the left upper and left lower extremity with some redness and mild to moderate swelling) Skin: Other (refer to above) Labs LABS Laboratory Tests Test 12/30/17 03:45 White Blood Count 10.8 x10^3/uL (4.0-11.0) Red Blood Count 4.59 x10^6/uL (4.30-5.70) Hemoglobin 14.4 g/dL (13.0-17.5) Hematocrit 41.3 % (39.0-53.0) Mean Corpuscular Volume 90 fL (79-100) Mean Corpuscular Hemoglobin 31 pg (25-35) Mean Corpuscular Hemoglobin Concent 35 g/dL (31-37) Red Cell Distribution Width 13.7 % (11.5-14.5) Platelet Count 316 x10^3/uL (140-400) Neutrophils (%) (Auto) 42 % (31-73) Lymphocytes (%) (Auto) 41 % (24-48) Monocytes (%) (Auto) 7 % (0-9) Eosinophils (%) (Auto) 10 % (0-3) Basophils (%) (Auto) 1 % (0-3) Neutrophils # (Auto) 4.5 x10^3uL (1.8-7.7) Lymphocytes # (Auto) 4.4 x10^3/uL (1.0-4.8) Monocytes # (Auto) 0.7 x10^3/uL (0.0-1.1) Eosinophils # (Auto) 1.0 x10^3/uL (0.0-0.7) Basophils # (Auto) 0.1 x10^3/uL (0.0-0.2) Sodium Level 141 mmol/L (136-145) Potassium Level 3.6 mmol/L (3.5-5.1) Chloride Level 106 mmol/L (98-107) Carbon Dioxide Level 27 mmol/L (21-32) Anion Gap 8 (6-14) Blood Urea Nitrogen 14 mg/dL (8-26) Creatinine 0.9 mg/dL (0.7-1.3) Estimated GFR (Cockcroft-Gault) 91.3 Glucose Level 88 mg/dL (70-99) Calcium Level 8.8 mg/dL (8.5-10.1) Treponema pallidum Antibody Nonreactive (Nonreactive) Assessment and Plan Assessmemt and Plan Problems Medical Problems: (1) Hypertension Status: Acute (2) Pruritic erythematous rash Status: Acute (3) UTI (urinary tract infection) Status: Acute Comment Review of Relevant I have reviewed the following items alem (where applicable) has been applied. Labs Laboratory Tests Test 12/30/17 03:45 White Blood Count 10.8 x10^3/uL (4.0-11.0) Red Blood Count 4.59 x10^6/uL (4.30-5.70) Hemoglobin 14.4 g/dL (13.0-17.5) Hematocrit 41.3 % (39.0-53.0) Mean Corpuscular Volume 90 fL (79-100) Mean Corpuscular Hemoglobin 31 pg (25-35) Mean Corpuscular Hemoglobin Concent 35 g/dL (31-37) Red Cell Distribution Width 13.7 % (11.5-14.5) Platelet Count 316 x10^3/uL (140-400) Neutrophils (%) (Auto) 42 % (31-73) Lymphocytes (%) (Auto) 41 % (24-48) Monocytes (%) (Auto) 7 % (0-9) Eosinophils (%) (Auto) 10 % (0-3) Basophils (%) (Auto) 1 % (0-3) Neutrophils # (Auto) 4.5 x10^3uL (1.8-7.7) Lymphocytes # (Auto) 4.4 x10^3/uL (1.0-4.8) Monocytes # (Auto) 0.7 x10^3/uL (0.0-1.1) Eosinophils # (Auto) 1.0 x10^3/uL (0.0-0.7) Basophils # (Auto) 0.1 x10^3/uL (0.0-0.2) Sodium Level 141 mmol/L (136-145) Potassium Level 3.6 mmol/L (3.5-5.1) Chloride Level 106 mmol/L (98-107) Carbon Dioxide Level 27 mmol/L (21-32) Anion Gap 8 (6-14) Blood Urea Nitrogen 14 mg/dL (8-26) Creatinine 0.9 mg/dL (0.7-1.3) Estimated GFR (Cockcroft-Gault) 91.3 Glucose Level 88 mg/dL (70-99) Calcium Level 8.8 mg/dL (8.5-10.1) Treponema pallidum Antibody Nonreactive (Nonreactive) Laboratory Tests Test 12/30/17 03:45 White Blood Count 10.8 x10^3/uL (4.0-11.0) Red Blood Count 4.59 x10^6/uL (4.30-5.70) Hemoglobin 14.4 g/dL (13.0-17.5) Hematocrit 41.3 % (39.0-53.0) Mean Corpuscular Volume 90 fL (79-100) Mean Corpuscular Hemoglobin 31 pg (25-35) Mean Corpuscular Hemoglobin Concent 35 g/dL (31-37) Red Cell Distribution Width 13.7 % (11.5-14.5) Platelet Count 316 x10^3/uL (140-400) Neutrophils (%) (Auto) 42 % (31-73) Lymphocytes (%) (Auto) 41 % (24-48) Monocytes (%) (Auto) 7 % (0-9) Eosinophils (%) (Auto) 10 % (0-3) Basophils (%) (Auto) 1 % (0-3) Neutrophils # (Auto) 4.5 x10^3uL (1.8-7.7) Lymphocytes # (Auto) 4.4 x10^3/uL (1.0-4.8) Monocytes # (Auto) 0.7 x10^3/uL (0.0-1.1) Eosinophils # (Auto) 1.0 x10^3/uL (0.0-0.7) Basophils # (Auto) 0.1 x10^3/uL (0.0-0.2) Sodium Level 141 mmol/L (136-145) Potassium Level 3.6 mmol/L (3.5-5.1) Chloride Level 106 mmol/L (98-107) Carbon Dioxide Level 27 mmol/L (21-32) Anion Gap 8 (6-14) Blood Urea Nitrogen 14 mg/dL (8-26) Creatinine 0.9 mg/dL (0.7-1.3) Estimated GFR (Cockcroft-Gault) 91.3 Glucose Level 88 mg/dL (70-99) Calcium Level 8.8 mg/dL (8.5-10.1) Treponema pallidum Antibody Nonreactive (Nonreactive) Microbiology 12/28/17 Blood Culture - Preliminary, Resulted NO GROWTH AFTER 2 DAYS Medications Current Medications Diphenhydramine HCl (Benadryl) 25 mg 1X ONCE IVP ; Start 12/27/17 at 21:30; Stop 12/27/17 at 21:31; Status Cancel Sodium Chloride 1,000 ml @ 1,000 mls/hr 1X ONCE IV Last administered on 12/27at 22:02; Start 12/27/17 at 21:30; Stop 12/27/17 at 22:29; Status DC Diphenhydramine HCl (Benadryl) 50 mg 1X ONCE PO Last administered on at 22:02; Start 12/27/17 at 22:15; Stop 12/27/17 at 22:16; Status DC Dexamethasone Sodium Phosphate (Decadron) 10 mg 1X ONCE IV Last administered on 12/28/17at 00:06; Start 12/27/17 at 23:30; Stop 12/27/17 at 23:31; Status DC Ondansetron HCl (Zofran) 4 mg PRN Q8HRS PRN IV NAUSEA/VOMITING 1ST CHOICE; Start 12/27/17 at 23:30; Stop 12/28/17 at 08:29; Status DC Acetaminophen (Tylenol) 650 mg PRN Q4HRS PRN PO FEVER Last administered on at 08:38; Start 12/27/17 at 23:30; Stop 12/28/17 at 23:29; Status DC Labetalol HCl (Normodyne Iv Push) 10 mg 1X ONCE IVP Last administered on 12/28at 00:07; Start 12/28/17 at 00:00; Stop 12/28/17 at 00:01; Status DC Pharmacy Consult (C.diff Med Screen By Rx) 1 each 1X ONCE [facility] ; Start 12/28/17 at 02:15; Stop 12/28/17 at 02:18; Status DC Ondansetron HCl (Zofran) 4 mg PRN Q6HRS PRN IV NAUSEA/VOMITING 1ST CHOICE; Start 12/28/17 at 08:30 Celecoxib (CeleBREX) 100 mg BIDWMEALS PO Last administered on 12/28/17at 08:38 ; Start 12/28/17 at 09:00; Stop 12/28/17 at 10:27; Status DC Labetalol HCl (Normodyne Iv Push) 20 mg PRN Q2HR PRN IVP HYPERTENSION, SEE COMMENTS; Start 12/28/17 at 08:30 Ceftriaxone Sodium 1 gm/ Dextrose 50 ml @ 100 mls/hr 1X ONCE IV ; Start 12/28 at 10:30; Stop 12/28/17 at 10:59; Status UNV Calcipotriene (Dovonex) 1 radha BID TP Last administered on 12/30/17at 09:48; Start 12/28/17 at 21:00 Ibuprofen (Motrin) 400 mg PRN Q6HRS PRN PO INFLAMMATION; Start 12/28/17 at 10: 30 Ceftriaxone Sodium 50 ml @ 100 mls/hr 1X ONCE IV ; Start 12/28/17 at 10:30; Stop 12/28/17 at 10:59; Status Cancel Ciprofloxacin (Cipro) 500 mg BID PO ; Start 12/28/17 at 12:00; Stop 12/28/17 at 12:00; Status DC Doxycycline Hyclate (Vibra-Tab) 100 mg BID PO ; Start 12/28/17 at 12:00; Stop 12/28/17 at 12:00; Status DC Ceftriaxone Sodium (Rocephin) 1 gm ONCE@1130 ONCE IVP ; Start 12/28/17 at 11: 30; Stop 12/28/17 at 11:31; Status DC Ceftriaxone Sodium 1 gm/ Dextrose 50 ml @ 100 mls/hr Q24H IV ; Start 12/28/17 at 11:00; Status UNV Ceftriaxone Sodium (Rocephin) 1 gm Q24H IVP Last administered on 12/29/17at 13: 05; Start 12/28/17 at 12:00; Stop 12/30/17 at 10:47; Status DC Lactobacillus Rhamnosus (Culturelle) 1 cap BID PO Last administered on at 09:48; Start 12/28/17 at 21:00 Acetaminophen (Tylenol) 650 mg PRN Q6HRS PRN PO FEVER; Start 12/29/17 at 15:15 Ondansetron HCl (Zofran) 4 mg PRN Q6HRS PRN IV NAUSEA/VOMITING; Start at 15:15; Status UNV Morphine Sulfate (Morphine Sulfate) 2 mg PRN Q2HR PRN IV MODERATE TO SEVERE PAIN; Start 12/29/17 at 15:15 Tramadol HCl (Ultram) 50 mg PRN Q6HRS PRN PO MILD TO MODERATE PAIN; Start at 15:15 Docusate Sodium (Colace) 100 mg PRN DAILY PRN PO CONSTIPATION; Start 12/29/17 at 15:15 Diphenhydramine HCl (Benadryl) 25 mg PRN Q6HRS PRN PO ITCHING Last administered on 12/30/17at 09:48; Start 12/29/17 at 15:30 Enoxaparin Sodium (Lovenox 40mg Syringe) 40 mg Q24H SQ Last administered on at 18:03; Start 12/29/17 at 16:00 Hydroxyzine HCl (Atarax) 10 mg Q6HRS PO Last administered on 12/30/17at 12:53; Start 12/30/17 at 12:00 Active Scripts Active Vitals/I & O Vital Sign - Last 24 Hours 12/29/17 12/29/17 12/29/17 12/29/17 15:00 19:00 20:00 23:00 Temp 97.8 97.6 97.1 97.8 97.6 97.1 Pulse 67 69 58 Resp 18 18 18 B/P (MAP) 116/66 (83) 144/75 (98) 150/80 (103) Pulse Ox 97 97 96 O2 Delivery Room Air Room Air Room Air Room Air 12/30/17 12/30/17 12/30/17 12/30/17 03:00 07:00 08:30 11:00 Temp 97.8 97.5 98.6 97.8 97.5 98.6 Pulse 59 77 66 Resp 18 B/P (MAP) 132/69 (90) 157/82 (107) 139/79 (99) Pulse Ox 99 98 97 O2 Delivery Room Air Room Air Room Air Room Air Intake and Output 12/29/17 12/29/17 12/30/17 15:00 23:00 07:00 Intake Total 400 ml 420 ml 320 ml Balance 400 ml 420 ml 320 ml JANKI WALKER MD Dec 30, 2017 13:46
[2017-12-30 15:00] VITALS: BP 145/93
[2017-12-30] MEDS: ENOXAPARIN 40 MG/0.4 ML SYRINGE. SQ SCH (17:07)
[2017-12-30 19:00] VITALS: BP 161/81
[2017-12-30 23:00] VITALS: BP 130/78
[2017-12-31 03:00] VITALS: BP 126/75
[2017-12-31] MEDS: hydrOXYzine 10 MG TABLET PO SCH ×4 (05:45→23:53)
[2017-12-31 06:12] LABS: BASO # 0.2 x10^3/uL (0.0-0.2); BASO % 1 % (0-3); EOS # 1.3 x10^3/uL (0.0-0.7); EOS % 11 % (0-3); HEMATOCRIT 42.8 % (39.0-53.0); HEMOGLOBIN 14.7 g/dL (13.0-17.5); LYMPH # 4.6 x10^3/uL (1.0-4.8); LYMPH % 39 % (24-48); MEAN CORPUSCULAR HEMOGLOBIN 31 pg (25-35); MEAN CORPUSCULAR HGB CONC 34 g/dL (31-37); MEAN CORPUSCULAR VOLUME 89 fL (79-100); MONO # 0.9 x10^3/uL (0.0-1.1); MONO % 7 % (0-9); NEUT # 4.8 x10^3uL (1.8-7.7); NEUT % 41 % (31-73); PLATELET COUNT 327 x10^3/uL (140-400); RED BLOOD COUNT 4.79 x10^6/uL (4.30-5.70); RED CELL DISTRIBUTION WIDTH 13.4 % (11.5-14.5); WHITE BLOOD COUNT 11.8 x10^3/uL (4.0-11.0)
[2017-12-31 06:37] LABS: GFR 80.8; POTASSIUM 3.5 mmol/L (3.5-5.1)
[2017-12-31 07:00] VITALS: BP 161/95
[2017-12-31 08:39] LABS: % ATYL 1 % (0-0); % BANDS 1 % (0-9); % BASOS 1 % (0-3); % EOS 9 % (0-5); % LYMPHS 61 % (24-48); % MONOS 4 % (0-10); % SEGS 23 % (35-66); PLT ESTIMATE ADEQUATE (ADEQUATE)
[2017-12-31] MEDS: LACTOBACILLUS RHAMNOSUS GG 1 CAPSULE. PO SCH ×2 (10:13→21:54)
[2017-12-31] MEDS: CALCIPOTRIENE 0.005% TOPICAL CREAM 60GM TUBE. TP SCH (10:14)
--- NOTE | 2017-12-31 10:23 | PDOC ---
Infectious Disease Note Subjective: Subjective pt continues to have itchy skin rash mainly over both ext, LT> Rt no f/c/n/v/d no oral sores no gu lesions ROS: ROS Negative except for above. Vital Signs: Vital Signs Vital Signs Date Time Temp Pulse Resp B/P (MAP) Pulse Ox O2 Delivery O2 Flow Rate FiO2 12/31/17 07:00 98.3 89 18 161/95 (117) 97 Room Air 98.3 Physical Exam: PHYSICAL EXAM GENERAL: The patient is lying down, resting quietly HEENT: Normal conjunctivae. Oral mucosa is pink and moist. NECK: Supple. LUNGS: Clear to auscultation. HEART: S1 and S2. ABDOMEN: Bowel sounds active, soft, nontender. EXTREMITIES: Trace edema in lower extremities bilaterally. SKIN: He has a rash with dry scaling localized to left upper extremities and lower extremities NEUROLOGIC: Alert and oriented times 3. Medications: Inpatient Meds: Current Medications Medications (Trade) Dose Ordered Sig/Lety Start Time Stop Time Status Last Admin Dose Admin Acetaminophen (Tylenol) 650 mg PRN Q6HRS PRN 12/29/17 15:15 Calcipotriene (Dovonex) 1 radha BID 12/28/17 21:00 12/31/17 10:14 1 RADHA Ceftriaxone Sodium 1 gm/ Dextrose 50 ml @ 100 mls/hr Q24H 12/28/17 11:00 UNV Ceftriaxone Sodium (Rocephin) 1 gm Q24H 12/28/17 12:00 12/30/17 10:47 DC 12/29/17 13:05 1 GM Celecoxib (CeleBREX) 100 mg BIDWMEALS 12/28/17 09:00 12/28/17 10:27 DC 12/28/17 08:38 100 MG Ciprofloxacin (Cipro) 500 mg BID 12/28/17 12:00 12/28/17 12:00 DC Dexamethasone Sodium Phosphate (Decadron) 10 mg 1X ONCE 12/27/17 23:30 12/27/17 23:31 DC 12/28/17 00:06 10 MG Diphenhydramine HCl (Benadryl) 25 mg PRN Q6HRS PRN 12/29/17 15:30 12/30/17 09:48 25 MG Docusate Sodium (Colace) 100 mg PRN DAILY PRN 12/29/17 15:15 Doxycycline Hyclate (Vibra-Tab) 100 mg BID 12/28/17 12:00 12/28/17 12:00 DC Enoxaparin Sodium (Lovenox 40mg Syringe) 40 mg Q24H 12/29/17 16:00 12/30/17 17:07 40 MG Hydroxyzine HCl (Atarax) 10 mg Q6HRS 12/30/17 12:00 12/31/17 05:45 10 MG Ibuprofen (Motrin) 400 mg PRN Q6HRS PRN 12/28/17 10:30 Labetalol HCl (Normodyne Iv Push) 20 mg PRN Q2HR PRN 12/28/17 08:30 Lactobacillus Rhamnosus (Culturelle) 1 cap BID 12/28/17 21:00 12/31/17 10:13 1 CAP Morphine Sulfate (Morphine Sulfate) 2 mg PRN Q2HR PRN 12/29/17 15:15 Ondansetron HCl (Zofran) 4 mg PRN Q6HRS PRN 12/29/17 15:15 UNV Pharmacy Consult (C.diff Med Screen By Rx) 1 each 1X ONCE 12/28/17 02:15 12/28/17 02:18 DC Sodium Chloride 1,000 ml @ 1,000 mls/hr 1X ONCE 12/27/17 21:30 12/27/17 22:29 DC 12/27/17 22:02 1,000 MLS/HR Tramadol HCl (Ultram) 50 mg PRN Q6HRS PRN 12/29/17 15:15 Labs: Lab Laboratory Tests Test 12/31/17 04:40 White Blood Count 11.8 x10^3/uL (4.0-11.0) Red Blood Count 4.79 x10^6/uL (4.30-5.70) Hemoglobin 14.7 g/dL (13.0-17.5) Hematocrit 42.8 % (39.0-53.0) Mean Corpuscular Volume 89 fL (79-100) Mean Corpuscular Hemoglobin 31 pg (25-35) Mean Corpuscular Hemoglobin Concent 34 g/dL (31-37) Red Cell Distribution Width 13.4 % (11.5-14.5) Platelet Count 327 x10^3/uL (140-400) Neutrophils (%) (Auto) 41 % (31-73) Lymphocytes (%) (Auto) 39 % (24-48) Monocytes (%) (Auto) 7 % (0-9) Eosinophils (%) (Auto) 11 % (0-3) Basophils (%) (Auto) 1 % (0-3) Neutrophils # (Auto) 4.8 x10^3uL (1.8-7.7) Lymphocytes # (Auto) 4.6 x10^3/uL (1.0-4.8) Monocytes # (Auto) 0.9 x10^3/uL (0.0-1.1) Eosinophils # (Auto) 1.3 x10^3/uL (0.0-0.7) Basophils # (Auto) 0.2 x10^3/uL (0.0-0.2) Segmented Neutrophils % 23 % (35-66) Band Neutrophils % 1 % (0-9) Lymphocytes % 61 % (24-48) Atypical Lymphocytes % (Manual) 1 % (0-0) Monocytes % 4 % (0-10) Eosinophils % 9 % (0-5) Basophils % 1 % (0-3) Platelet Estimate Adequate (ADEQUATE) Sodium Level 141 mmol/L (136-145) Potassium Level 3.5 mmol/L (3.5-5.1) Chloride Level 105 mmol/L (98-107) Carbon Dioxide Level 26 mmol/L (21-32) Anion Gap 10 (6-14) Blood Urea Nitrogen 19 mg/dL (8-26) Creatinine 1.0 mg/dL (0.7-1.3) Estimated GFR (Cockcroft-Gault) 80.8 Glucose Level 82 mg/dL (70-99) Calcium Level 9.0 mg/dL (8.5-10.1) Objective: Assessment: 1. Pruritic rash involving both arms and lower extremities. with eosinophilia 2. History of Methicillin-sensitive Staphylococcus aureus and group A strep cellulitis about 3 weeks ago. 3. MSSA UTI 4. Hypertension. Plan: Plan of Care Lesions are drying up will restart keflex for a total of 7 days,was on ceftriaxone until 12/30 derm did biopsy,follow up path results f/u stool O and P Monitor labs/temp Supportive care call us if any questions D/w SHADY HURD MD Dec 31, 2017 10:23
[2017-12-31] MEDS: diphenhydrAMINE HCL 25 MG CAPSULE PO PRN ×2 (10:25→21:54)
[2017-12-31] MEDS: IBUPROFEN 400 MG TABLET. PO PRN ×2 (10:35→16:52)
[2017-12-31 11:00] VITALS: BP 159/90
[2017-12-31] MEDS: CEPHALEXIN 250 MG CAPSULE. PO SCH ×3 (13:00→21:54)
--- NOTE | 2017-12-31 13:59 | PDOC ---
PROGRESS NOTES Chief Complaint Chief Complaint left upper and lower itchy skin rash suspicious hyperactivity with eosinophilia recent Left lower extremity cellulitis, left upper ext cellulitis Possibly undiagnosed psoriasis Multiple petechia right upper extremity, right lower extremity Self-pay History sepsis with negative blood cultures plan; fu with id, derm bx done dced ceftriaxone as per ID, keflex restarted today. add hydroxyzine q6h as per derm, check stool o and p benadryl prn dvt ppx dc tmr. pt has no insurance, should fu with DERM for path. History of Present Illness History of Present Illness ROS: no fever, chills, sob or chest pain left forearm, left leg swelling, erythema slightly better on leg , but worse on left forearm high ESO Vitals Vitals Vital Signs Date Time Temp Pulse Resp B/P (MAP) Pulse Ox O2 Delivery O2 Flow Rate FiO2 12/31/17 11:00 98.0 78 18 159/90 (113) 97 Room Air 98.0 Physical Exam Physical Exam GENERAL: The patient is lying down, resting quietly HEENT: Normal conjunctivae. Oral mucosa is pink and moist. NECK: Supple. LUNGS: Clear to auscultation. HEART: S1 and S2. ABDOMEN: Bowel sounds active, soft, nontender. EXTREMITIES: Trace edema in lower extremities bilaterally. SKIN: He has a rash with dry scaling localized to left upper extremities and lower extremities NEUROLOGIC: Alert and oriented times 3. General: Alert, Oriented X3, Cooperative, No acute distress Abdomen: Normal bowel sounds, Soft, No tenderness, No hepatosplenomegaly, No masses Extremities: Other (a petechial barbara Multiple petecchiae in the right upper extremity, right lower extremity-he is significant scaling on the left upper and left lower extremity with some redness and mild to moderate swelling) Skin: Other (refer to above) Labs LABS Laboratory Tests Test 12/31/17 04:40 White Blood Count 11.8 x10^3/uL (4.0-11.0) Red Blood Count 4.79 x10^6/uL (4.30-5.70) Hemoglobin 14.7 g/dL (13.0-17.5) Hematocrit 42.8 % (39.0-53.0) Mean Corpuscular Volume 89 fL (79-100) Mean Corpuscular Hemoglobin 31 pg (25-35) Mean Corpuscular Hemoglobin Concent 34 g/dL (31-37) Red Cell Distribution Width 13.4 % (11.5-14.5) Platelet Count 327 x10^3/uL (140-400) Neutrophils (%) (Auto) 41 % (31-73) Lymphocytes (%) (Auto) 39 % (24-48) Monocytes (%) (Auto) 7 % (0-9) Eosinophils (%) (Auto) 11 % (0-3) Basophils (%) (Auto) 1 % (0-3) Neutrophils # (Auto) 4.8 x10^3uL (1.8-7.7) Lymphocytes # (Auto) 4.6 x10^3/uL (1.0-4.8) Monocytes # (Auto) 0.9 x10^3/uL (0.0-1.1) Eosinophils # (Auto) 1.3 x10^3/uL (0.0-0.7) Basophils # (Auto) 0.2 x10^3/uL (0.0-0.2) Segmented Neutrophils % 23 % (35-66) Band Neutrophils % 1 % (0-9) Lymphocytes % 61 % (24-48) Atypical Lymphocytes % (Manual) 1 % (0-0) Monocytes % 4 % (0-10) Eosinophils % 9 % (0-5) Basophils % 1 % (0-3) Platelet Estimate Adequate (ADEQUATE) Sodium Level 141 mmol/L (136-145) Potassium Level 3.5 mmol/L (3.5-5.1) Chloride Level 105 mmol/L (98-107) Carbon Dioxide Level 26 mmol/L (21-32) Anion Gap 10 (6-14) Blood Urea Nitrogen 19 mg/dL (8-26) Creatinine 1.0 mg/dL (0.7-1.3) Estimated GFR (Cockcroft-Gault) 80.8 Glucose Level 82 mg/dL (70-99) Calcium Level 9.0 mg/dL (8.5-10.1) Assessment and Plan Assessmemt and Plan Problems Medical Problems: (1) Hypertension Status: Acute (2) Pruritic erythematous rash Status: Acute (3) UTI (urinary tract infection) Status: Acute Comment Review of Relevant I have reviewed the following items alem (where applicable) has been applied. Labs Laboratory Tests Test 12/30/17 03:45 10/31/18 04:40 White Blood Count 10.8 x10^3/uL (4.0-11.0) 11.8 x10^3/uL (4.0-11.0) Red Blood Count 4.59 x10^6/uL (4.30-5.70) 4.79 x10^6/uL (4.30-5.70) Hemoglobin 14.4 g/dL (13.0-17.5) 14.7 g/dL (13.0-17.5) Hematocrit 41.3 % (39.0-53.0) 42.8 % (39.0-53.0) Mean Corpuscular Volume 90 fL (79-100) 89 fL (79-100) Mean Corpuscular Hemoglobin 31 pg (25-35) 31 pg (25-35) Mean Corpuscular Hemoglobin Concent 35 g/dL (31-37) 34 g/dL (31-37) Red Cell Distribution Width 13.7 % (11.5-14.5) 13.4 % (11.5-14.5) Platelet Count 316 x10^3/uL (140-400) 327 x10^3/uL (140-400) Neutrophils (%) (Auto) 42 % (31-73) 41 % (31-73) Lymphocytes (%) (Auto) 41 % (24-48) 39 % (24-48) Monocytes (%) (Auto) 7 % (0-9) 7 % (0-9) Eosinophils (%) (Auto) 10 % (0-3) 11 % (0-3) Basophils (%) (Auto) 1 % (0-3) 1 % (0-3) Neutrophils # (Auto) 4.5 x10^3uL (1.8-7.7) 4.8 x10^3uL (1.8-7.7) Lymphocytes # (Auto) 4.4 x10^3/uL (1.0-4.8) 4.6 x10^3/uL (1.0-4.8) Monocytes # (Auto) 0.7 x10^3/uL (0.0-1.1) 0.9 x10^3/uL (0.0-1.1) Eosinophils # (Auto) 1.0 x10^3/uL (0.0-0.7) 1.3 x10^3/uL (0.0-0.7) Basophils # (Auto) 0.1 x10^3/uL (0.0-0.2) 0.2 x10^3/uL (0.0-0.2) Sodium Level 141 mmol/L (136-145) 141 mmol/L (136-145) Potassium Level 3.6 mmol/L (3.5-5.1) 3.5 mmol/L (3.5-5.1) Chloride Level 106 mmol/L (98-107) 105 mmol/L (98-107) Carbon Dioxide Level 27 mmol/L (21-32) 26 mmol/L (21-32) Anion Gap 8 (6-14) 10 (6-14) Blood Urea Nitrogen 14 mg/dL (8-26) 19 mg/dL (8-26) Creatinine 0.9 mg/dL (0.7-1.3) 1.0 mg/dL (0.7-1.3) Estimated GFR (Cockcroft-Gault) 91.3 80.8 Glucose Level 88 mg/dL (70-99) 82 mg/dL (70-99) Calcium Level 8.8 mg/dL (8.5-10.1) 9.0 mg/dL (8.5-10.1) Treponema pallidum Antibody Nonreactive (Nonreactive) Segmented Neutrophils % 23 % (35-66) Band Neutrophils % 1 % (0-9) Lymphocytes % 61 % (24-48) Atypical Lymphocytes % (Manual) 1 % (0-0) Monocytes % 4 % (0-10) Eosinophils % 9 % (0-5) Basophils % 1 % (0-3) Platelet Estimate Adequate (ADEQUATE) Laboratory Tests Test 12/31/17 04:40 White Blood Count 11.8 x10^3/uL (4.0-11.0) Red Blood Count 4.79 x10^6/uL (4.30-5.70) Hemoglobin 14.7 g/dL (13.0-17.5) Hematocrit 42.8 % (39.0-53.0) Mean Corpuscular Volume 89 fL (79-100) Mean Corpuscular Hemoglobin 31 pg (25-35) Mean Corpuscular Hemoglobin Concent 34 g/dL (31-37) Red Cell Distribution Width 13.4 % (11.5-14.5) Platelet Count 327 x10^3/uL (140-400) Neutrophils (%) (Auto) 41 % (31-73) Lymphocytes (%) (Auto) 39 % (24-48) Monocytes (%) (Auto) 7 % (0-9) Eosinophils (%) (Auto) 11 % (0-3) Basophils (%) (Auto) 1 % (0-3) Neutrophils # (Auto) 4.8 x10^3uL (1.8-7.7) Lymphocytes # (Auto) 4.6 x10^3/uL (1.0-4.8) Monocytes # (Auto) 0.9 x10^3/uL (0.0-1.1) Eosinophils # (Auto) 1.3 x10^3/uL (0.0-0.7) Basophils # (Auto) 0.2 x10^3/uL (0.0-0.2) Segmented Neutrophils % 23 % (35-66) Band Neutrophils % 1 % (0-9) Lymphocytes % 61 % (24-48) Atypical Lymphocytes % (Manual) 1 % (0-0) Monocytes % 4 % (0-10) Eosinophils % 9 % (0-5) Basophils % 1 % (0-3) Platelet Estimate Adequate (ADEQUATE) Sodium Level 141 mmol/L (136-145) Potassium Level 3.5 mmol/L (3.5-5.1) Chloride Level 105 mmol/L (98-107) Carbon Dioxide Level 26 mmol/L (21-32) Anion Gap 10 (6-14) Blood Urea Nitrogen 19 mg/dL (8-26) Creatinine 1.0 mg/dL (0.7-1.3) Estimated GFR (Cockcroft-Gault) 80.8 Glucose Level 82 mg/dL (70-99) Calcium Level 9.0 mg/dL (8.5-10.1) Microbiology 12/28/17 Blood Culture - Preliminary, Resulted NO GROWTH AFTER 3 DAYS 12/27/17 Urine Culture - Final, Complete 12/27/17 Urine Culture Result 1 (LEDY) - Final, Complete 12/27/17 Antimicrobic Susceptibility - Final, Complete Medications Current Medications Diphenhydramine HCl (Benadryl) 25 mg 1X ONCE IVP ; Start 12/27/17 at 21:30; Stop 12/27/17 at 21:31; Status Cancel Sodium Chloride 1,000 ml @ 1,000 mls/hr 1X ONCE IV Last administered on 12/27at 22:02; Start 12/27/17 at 21:30; Stop 12/27/17 at 22:29; Status DC Diphenhydramine HCl (Benadryl) 50 mg 1X ONCE PO Last administered on at 22:02; Start 12/27/17 at 22:15; Stop 12/27/17 at 22:16; Status DC Dexamethasone Sodium Phosphate (Decadron) 10 mg 1X ONCE IV Last administered on 12/28/17at 00:06; Start 12/27/17 at 23:30; Stop 12/27/17 at 23:31; Status DC Ondansetron HCl (Zofran) 4 mg PRN Q8HRS PRN IV NAUSEA/VOMITING 1ST CHOICE; Start 12/27/17 at 23:30; Stop 12/28/17 at 08:29; Status DC Acetaminophen (Tylenol) 650 mg PRN Q4HRS PRN PO FEVER Last administered on at 08:38; Start 12/27/17 at 23:30; Stop 12/28/17 at 23:29; Status DC Labetalol HCl (Normodyne Iv Push) 10 mg 1X ONCE IVP Last administered on 12/28at 00:07; Start 12/28/17 at 00:00; Stop 12/28/17 at 00:01; Status DC Pharmacy Consult (C.diff Med Screen By Rx) 1 each 1X ONCE [facility] ; Start 12/28/17 at 02:15; Stop 12/28/17 at 02:18; Status DC Ondansetron HCl (Zofran) 4 mg PRN Q6HRS PRN IV NAUSEA/VOMITING 1ST CHOICE; Start 12/28/17 at 08:30 Celecoxib (CeleBREX) 100 mg BIDWMEALS PO Last administered on 12/28/17at 08:38 ; Start 12/28/17 at 09:00; Stop 12/28/17 at 10:27; Status DC Labetalol HCl (Normodyne Iv Push) 20 mg PRN Q2HR PRN IVP HYPERTENSION, SEE COMMENTS; Start 12/28/17 at 08:30 Ceftriaxone Sodium 1 gm/ Dextrose 50 ml @ 100 mls/hr 1X ONCE IV ; Start 12/28 at 10:30; Stop 12/28/17 at 10:59; Status UNV Calcipotriene (Dovonex) 1 radha BID TP Last administered on 12/31/17at 10:14; Start 12/28/17 at 21:00; Stop 12/31/17 at 11:42; Status DC Ibuprofen (Motrin) 400 mg PRN Q6HRS PRN PO INFLAMMATION Last administered on at 10:35; Start 12/28/17 at 10:30 Ceftriaxone Sodium 50 ml @ 100 mls/hr 1X ONCE IV ; Start 12/28/17 at 10:30; Stop 12/28/17 at 10:59; Status Cancel Ciprofloxacin (Cipro) 500 mg BID PO ; Start 12/28/17 at 12:00; Stop 12/28/17 at 12:00; Status DC Doxycycline Hyclate (Vibra-Tab) 100 mg BID PO ; Start 12/28/17 at 12:00; Stop 12/28/17 at 12:00; Status DC Ceftriaxone Sodium (Rocephin) 1 gm ONCE@1130 ONCE IVP ; Start 12/28/17 at 11: 30; Stop 12/28/17 at 11:31; Status DC Ceftriaxone Sodium 1 gm/ Dextrose 50 ml @ 100 mls/hr Q24H IV ; Start 12/28/17 at 11:00; Status UNV Ceftriaxone Sodium (Rocephin) 1 gm Q24H IVP Last administered on 12/29/17at 13: 05; Start 12/28/17 at 12:00; Stop 12/30/17 at 10:47; Status DC Lactobacillus Rhamnosus (Culturelle) 1 cap BID PO Last administered on at 10:13; Start 12/28/17 at 21:00 Acetaminophen (Tylenol) 650 mg PRN Q6HRS PRN PO FEVER; Start 12/29/17 at 15:15 Ondansetron HCl (Zofran) 4 mg PRN Q6HRS PRN IV NAUSEA/VOMITING; Start at 15:15; Status UNV Morphine Sulfate (Morphine Sulfate) 2 mg PRN Q2HR PRN IV MODERATE TO SEVERE PAIN; Start 12/29/17 at 15:15 Tramadol HCl (Ultram) 50 mg PRN Q6HRS PRN PO MILD TO MODERATE PAIN; Start at 15:15 Docusate Sodium (Colace) 100 mg PRN DAILY PRN PO CONSTIPATION; Start 12/29/17 at 15:15 Diphenhydramine HCl (Benadryl) 25 mg PRN Q6HRS PRN PO ITCHING Last administered on 12/31/17at 10:25; Start 12/29/17 at 15:30 Enoxaparin Sodium (Lovenox 40mg Syringe) 40 mg Q24H SQ Last administered on at 17:07; Start 12/29/17 at 16:00 Hydroxyzine HCl (Atarax) 10 mg Q6HRS PO Last administered on 12/31/17at 05:45; Start 12/30/17 at 12:00 Cephalexin HCl (Keflex) 500 mg QID PO ; Start 12/31/17 at 13:00 Active Scripts Active Vitals/I & O Vital Sign - Last 24 Hours 12/30/17 12/30/17 12/30/17 12/30/17 15:00 19:00 20:00 23:00 Temp 98.3 98.3 98.3 98.3 98.3 98.3 Pulse 69 62 61 Resp 17 17 17 B/P (MAP) 145/93 (110) 161/81 (107) 130/78 (95) Pulse Ox 98 98 97 O2 Delivery Room Air Room Air Room Air Room Air 12/31/17 12/31/17 12/31/17 03:00 07:00 11:00 Temp 97.9 98.3 98.0 97.9 98.3 98.0 Pulse 66 89 78 Resp 17 18 18 B/P (MAP) 126/75 (92) 161/95 (117) 159/90 (113) Pulse Ox 96 97 97 O2 Delivery Room Air Room Air Room Air Intake and Output 12/30/17 12/30/17 12/31/17 15:00 23:00 07:00 Intake Total 1180 ml 240 ml Balance 1180 ml 240 ml JANKI WALKER MD Dec 31, 2017 13:59
[2017-12-31 15:00] VITALS: BP 145/91
[2017-12-31] MEDS: LISINOPRIL 20 MG TABLET PO SCH (16:51)
[2017-12-31] MEDS: ENOXAPARIN 40 MG/0.4 ML SYRINGE. SQ SCH (16:52)
[2017-12-31 19:00] VITALS: BP 144/87
[2017-12-31 23:00] VITALS: BP 121/64
[2018-01-01 03:00] VITALS: BP 133/73
[2018-01-01] MEDS: diphenhydrAMINE HCL 25 MG CAPSULE PO PRN ×3 (05:42→20:22)
[2018-01-01] MEDS: hydrOXYzine 10 MG TABLET PO SCH ×3 (05:42→18:43)
[2018-01-01 05:56] LABS: BASO # 0.2 x10^3/uL (0.0-0.2); BASO % 1 % (0-3); EOS # 1.2 x10^3/uL (0.0-0.7); EOS % 10 % (0-3); HEMATOCRIT 43.6 % (39.0-53.0); HEMOGLOBIN 14.9 g/dL (13.0-17.5); LYMPH # 4.8 x10^3/uL (1.0-4.8); LYMPH % 40 % (24-48); MEAN CORPUSCULAR HEMOGLOBIN 31 pg (25-35); MEAN CORPUSCULAR HGB CONC 34 g/dL (31-37); MEAN CORPUSCULAR VOLUME 90 fL (79-100); MONO # 0.9 x10^3/uL (0.0-1.1); MONO % 7 % (0-9); NEUT # 4.9 x10^3uL (1.8-7.7); NEUT % 41 % (31-73); PLATELET COUNT 356 x10^3/uL (140-400); RED BLOOD COUNT 4.83 x10^6/uL (4.30-5.70); RED CELL DISTRIBUTION WIDTH 13.9 % (11.5-14.5); WHITE BLOOD COUNT 11.8 x10^3/uL (4.0-11.0)
[2018-01-01 05:56] LABS: CALCIUM 8.9 mg/dL (8.5-10.1); CREATININE 0.9 mg/dL (0.7-1.3); GFR 91.3; POTASSIUM 3.8 mmol/L (3.5-5.1)
[2018-01-01 07:00] VITALS: BP 127/68
--- NOTE | 2018-01-01 08:06 | PDOC ---
PROGRESS NOTES Chief Complaint Chief Complaint left upper and lower itchy skin rash suspicious hyperactivity with eosinophilia recent Left lower extremity cellulitis, left upper ext cellulitis Possibly undiagnosed psoriasis Multiple petechia right upper extremity, right lower extremity Self-pay History sepsis with negative blood cultures History of Present Illness History of Present Illness Admitted with intensely pruritic rash on left side of his body s/p derm biopsy. Improved with topical, systemic treatment. Keflex per ID on 12/31/17 ROS: no fever, chills, sob or chest pain left forearm, left leg swelling, erythema slightly better on leg , but worse on left forearm left upper and lower itchy skin rash suspicious hyperactivity with eosinophilia recent Left lower extremity cellulitis, left upper ext cellulitis Possibly undiagnosed psoriasis Multiple petechia right upper extremity, right lower extremity Self-pay History sepsis with negative blood cultures plan; fu with id, derm bx done dced ceftriaxone as per ID, keflex restarted today. add hydroxyzine q6h as per derm, check stool o and p benadryl prn dvt ppx dc tmr. pt has no insurance, should fu with DERM for path. Vitals Vitals Vital Signs Date Time Temp Pulse Resp B/P (MAP) Pulse Ox O2 Delivery O2 Flow Rate FiO2 01/01/18 03:00 98.6 61 18 133/73 (93) 97 Room Air 98.6 Physical Exam Physical Exam GENERAL: The patient is lying down, resting quietly HEENT: Normal conjunctivae. Oral mucosa is pink and moist. NECK: Supple. LUNGS: Clear to auscultation. HEART: S1 and S2. ABDOMEN: Bowel sounds active, soft, nontender. EXTREMITIES: Trace edema in lower extremities bilaterally. SKIN: He has a rash with dry scaling localized to left upper extremities and lower extremities NEUROLOGIC: Alert and oriented times 3. General: Alert, Oriented X3, Cooperative, No acute distress Abdomen: Normal bowel sounds, Soft, No tenderness, No hepatosplenomegaly, No masses Extremities: Other (a petechial barbara Multiple petecchiae in the right upper extremity, right lower extremity-he is significant scaling on the left upper and left lower extremity with some redness and mild to moderate swelling) Skin: Other (refer to above) Labs LABS Laboratory Tests Test 01/01/18 04:05 01/01/18 04:15 White Blood Count 11.8 x10^3/uL (4.0-11.0) Red Blood Count 4.83 x10^6/uL (4.30-5.70) Hemoglobin 14.9 g/dL (13.0-17.5) Hematocrit 43.6 % (39.0-53.0) Mean Corpuscular Volume 90 fL (79-100) Mean Corpuscular Hemoglobin 31 pg (25-35) Mean Corpuscular Hemoglobin Concent 34 g/dL (31-37) Red Cell Distribution Width 13.9 % (11.5-14.5) Platelet Count 356 x10^3/uL (140-400) Neutrophils (%) (Auto) 41 % (31-73) Lymphocytes (%) (Auto) 40 % (24-48) Monocytes (%) (Auto) 7 % (0-9) Eosinophils (%) (Auto) 10 % (0-3) Basophils (%) (Auto) 1 % (0-3) Neutrophils # (Auto) 4.9 x10^3uL (1.8-7.7) Lymphocytes # (Auto) 4.8 x10^3/uL (1.0-4.8) Monocytes # (Auto) 0.9 x10^3/uL (0.0-1.1) Eosinophils # (Auto) 1.2 x10^3/uL (0.0-0.7) Basophils # (Auto) 0.2 x10^3/uL (0.0-0.2) Sodium Level 144 mmol/L (136-145) Potassium Level 3.8 mmol/L (3.5-5.1) Chloride Level 107 mmol/L (98-107) Carbon Dioxide Level 26 mmol/L (21-32) Anion Gap 11 (6-14) Blood Urea Nitrogen 23 mg/dL (8-26) Creatinine 0.9 mg/dL (0.7-1.3) Estimated GFR (Cockcroft-Gault) 91.3 Glucose Level 81 mg/dL (70-99) Calcium Level 8.9 mg/dL (8.5-10.1) Assessment and Plan Assessmemt and Plan Problems Medical Problems: (1) Hypertension Status: Acute (2) Pruritic erythematous rash Status: Acute (3) UTI (urinary tract infection) Status: Acute Comment Review of Relevant I have reviewed the following items alem (where applicable) has been applied. Labs Laboratory Tests Test 12/31/17 04:40 01/01/18 04:05 01/01/18 04:15 White Blood Count 11.8 x10^3/uL (4.0-11.0) 11.8 x10^3/uL (4.0-11.0) Red Blood Count 4.79 x10^6/uL (4.30-5.70) 4.83 x10^6/uL (4.30-5.70) Hemoglobin 14.7 g/dL (13.0-17.5) 14.9 g/dL (13.0-17.5) Hematocrit 42.8 % (39.0-53.0) 43.6 % (39.0-53.0) Mean Corpuscular Volume 89 fL (79-100) 90 fL (79-100) Mean Corpuscular Hemoglobin 31 pg (25-35) 31 pg (25-35) Mean Corpuscular Hemoglobin Concent 34 g/dL (31-37) 34 g/dL (31-37) Red Cell Distribution Width 13.4 % (11.5-14.5) 13.9 % (11.5-14.5) Platelet Count 327 x10^3/uL (140-400) 356 x10^3/uL (140-400) Neutrophils (%) (Auto) 41 % (31-73) 41 % (31-73) Lymphocytes (%) (Auto) 39 % (24-48) 40 % (24-48) Monocytes (%) (Auto) 7 % (0-9) 7 % (0-9) Eosinophils (%) (Auto) 11 % (0-3) 10 % (0-3) Basophils (%) (Auto) 1 % (0-3) 1 % (0-3) Neutrophils # (Auto) 4.8 x10^3uL (1.8-7.7) 4.9 x10^3uL (1.8-7.7) Lymphocytes # (Auto) 4.6 x10^3/uL (1.0-4.8) 4.8 x10^3/uL (1.0-4.8) Monocytes # (Auto) 0.9 x10^3/uL (0.0-1.1) 0.9 x10^3/uL (0.0-1.1) Eosinophils # (Auto) 1.3 x10^3/uL (0.0-0.7) 1.2 x10^3/uL (0.0-0.7) Basophils # (Auto) 0.2 x10^3/uL (0.0-0.2) 0.2 x10^3/uL (0.0-0.2) Segmented Neutrophils % 23 % (35-66) Band Neutrophils % 1 % (0-9) Lymphocytes % 61 % (24-48) Atypical Lymphocytes % (Manual) 1 % (0-0) Monocytes % 4 % (0-10) Eosinophils % 9 % (0-5) Basophils % 1 % (0-3) Platelet Estimate Adequate (ADEQUATE) Sodium Level 141 mmol/L (136-145) 144 mmol/L (136-145) Potassium Level 3.5 mmol/L (3.5-5.1) 3.8 mmol/L (3.5-5.1) Chloride Level 105 mmol/L (98-107) 107 mmol/L (98-107) Carbon Dioxide Level 26 mmol/L (21-32) 26 mmol/L (21-32) Anion Gap 10 (6-14) 11 (6-14) Blood Urea Nitrogen 19 mg/dL (8-26) 23 mg/dL (8-26) Creatinine 1.0 mg/dL (0.7-1.3) 0.9 mg/dL (0.7-1.3) Estimated GFR (Cockcroft-Gault) 80.8 91.3 Glucose Level 82 mg/dL (70-99) 81 mg/dL (70-99) Calcium Level 9.0 mg/dL (8.5-10.1) 8.9 mg/dL (8.5-10.1) Laboratory Tests Test 01/01/18 04:05 01/01/18 04:15 White Blood Count 11.8 x10^3/uL (4.0-11.0) Red Blood Count 4.83 x10^6/uL (4.30-5.70) Hemoglobin 14.9 g/dL (13.0-17.5) Hematocrit 43.6 % (39.0-53.0) Mean Corpuscular Volume 90 fL (79-100) Mean Corpuscular Hemoglobin 31 pg (25-35) Mean Corpuscular Hemoglobin Concent 34 g/dL (31-37) Red Cell Distribution Width 13.9 % (11.5-14.5) Platelet Count 356 x10^3/uL (140-400) Neutrophils (%) (Auto) 41 % (31-73) Lymphocytes (%) (Auto) 40 % (24-48) Monocytes (%) (Auto) 7 % (0-9) Eosinophils (%) (Auto) 10 % (0-3) Basophils (%) (Auto) 1 % (0-3) Neutrophils # (Auto) 4.9 x10^3uL (1.8-7.7) Lymphocytes # (Auto) 4.8 x10^3/uL (1.0-4.8) Monocytes # (Auto) 0.9 x10^3/uL (0.0-1.1) Eosinophils # (Auto) 1.2 x10^3/uL (0.0-0.7) Basophils # (Auto) 0.2 x10^3/uL (0.0-0.2) Sodium Level 144 mmol/L (136-145) Potassium Level 3.8 mmol/L (3.5-5.1) Chloride Level 107 mmol/L (98-107) Carbon Dioxide Level 26 mmol/L (21-32) Anion Gap 11 (6-14) Blood Urea Nitrogen 23 mg/dL (8-26) Creatinine 0.9 mg/dL (0.7-1.3) Estimated GFR (Cockcroft-Gault) 91.3 Glucose Level 81 mg/dL (70-99) Calcium Level 8.9 mg/dL (8.5-10.1) Microbiology 12/28/17 Blood Culture - Preliminary, Resulted NO GROWTH AFTER 3 DAYS 12/27/17 Urine Culture - Final, Complete 12/27/17 Urine Culture Result 1 (LEDY) - Final, Complete 12/27/17 Antimicrobic Susceptibility - Final, Complete Medications Current Medications Diphenhydramine HCl (Benadryl) 25 mg 1X ONCE IVP ; Start 12/27/17 at 21:30; Stop 12/27/17 at 21:31; Status Cancel Sodium Chloride 1,000 ml @ 1,000 mls/hr 1X ONCE IV Last administered on 12/27at 22:02; Start 12/27/17 at 21:30; Stop 12/27/17 at 22:29; Status DC Diphenhydramine HCl (Benadryl) 50 mg 1X ONCE PO Last administered on at 22:02; Start 12/27/17 at 22:15; Stop 12/27/17 at 22:16; Status DC Dexamethasone Sodium Phosphate (Decadron) 10 mg 1X ONCE IV Last administered on 12/28/17at 00:06; Start 12/27/17 at 23:30; Stop 12/27/17 at 23:31; Status DC Ondansetron HCl (Zofran) 4 mg PRN Q8HRS PRN IV NAUSEA/VOMITING 1ST CHOICE; Start 12/27/17 at 23:30; Stop 12/28/17 at 08:29; Status DC Acetaminophen (Tylenol) 650 mg PRN Q4HRS PRN PO FEVER Last administered on at 08:38; Start 12/27/17 at 23:30; Stop 12/28/17 at 23:29; Status DC Labetalol HCl (Normodyne Iv Push) 10 mg 1X ONCE IVP Last administered on 12/28at 00:07; Start 12/28/17 at 00:00; Stop 12/28/17 at 00:01; Status DC Pharmacy Consult (C.diff Med Screen By Rx) 1 each 1X ONCE [facility] ; Start 12/28/17 at 02:15; Stop 12/28/17 at 02:18; Status DC Ondansetron HCl (Zofran) 4 mg PRN Q6HRS PRN IV NAUSEA/VOMITING 1ST CHOICE; Start 12/28/17 at 08:30 Celecoxib (CeleBREX) 100 mg BIDWMEALS PO Last administered on 12/28/17at 08:38 ; Start 12/28/17 at 09:00; Stop 12/28/17 at 10:27; Status DC Labetalol HCl (Normodyne Iv Push) 20 mg PRN Q2HR PRN IVP HYPERTENSION, SEE COMMENTS; Start 12/28/17 at 08:30 Ceftriaxone Sodium 1 gm/ Dextrose 50 ml @ 100 mls/hr 1X ONCE IV ; Start 12/28 at 10:30; Stop 12/28/17 at 10:59; Status UNV Calcipotriene (Dovonex) 1 radha BID TP Last administered on 12/31/17at 10:14; Start 12/28/17 at 21:00; Stop 12/31/17 at 11:42; Status DC Ibuprofen (Motrin) 400 mg PRN Q6HRS PRN PO INFLAMMATION Last administered on at 16:52; Start 12/28/17 at 10:30 Ceftriaxone Sodium 50 ml @ 100 mls/hr 1X ONCE IV ; Start 12/28/17 at 10:30; Stop 12/28/17 at 10:59; Status Cancel Ciprofloxacin (Cipro) 500 mg BID PO ; Start 12/28/17 at 12:00; Stop 12/28/17 at 12:00; Status DC Doxycycline Hyclate (Vibra-Tab) 100 mg BID PO ; Start 12/28/17 at 12:00; Stop 12/28/17 at 12:00; Status DC Ceftriaxone Sodium (Rocephin) 1 gm ONCE@1130 ONCE IVP ; Start 12/28/17 at 11: 30; Stop 12/28/17 at 11:31; Status DC Ceftriaxone Sodium 1 gm/ Dextrose 50 ml @ 100 mls/hr Q24H IV ; Start 12/28/17 at 11:00; Status UNV Ceftriaxone Sodium (Rocephin) 1 gm Q24H IVP Last administered on 12/29/17at 13: 05; Start 12/28/17 at 12:00; Stop 12/30/17 at 10:47; Status DC Lactobacillus Rhamnosus (Culturelle) 1 cap BID PO Last administered on at 21:54; Start 12/28/17 at 21:00 Acetaminophen (Tylenol) 650 mg PRN Q6HRS PRN PO FEVER; Start 12/29/17 at 15:15 Ondansetron HCl (Zofran) 4 mg PRN Q6HRS PRN IV NAUSEA/VOMITING; Start at 15:15; Status UNV Morphine Sulfate (Morphine Sulfate) 2 mg PRN Q2HR PRN IV MODERATE TO SEVERE PAIN; Start 12/29/17 at 15:15 Tramadol HCl (Ultram) 50 mg PRN Q6HRS PRN PO MILD TO MODERATE PAIN; Start at 15:15 Docusate Sodium (Colace) 100 mg PRN DAILY PRN PO CONSTIPATION; Start 12/29/17 at 15:15 Diphenhydramine HCl (Benadryl) 25 mg PRN Q6HRS PRN PO ITCHING Last administered on 01/01/18at 05:42; Start 12/29/17 at 15:30 Enoxaparin Sodium (Lovenox 40mg Syringe) 40 mg Q24H SQ Last administered on at 16:52; Start 12/29/17 at 16:00 Hydroxyzine HCl (Atarax) 10 mg Q6HRS PO Last administered on 01/01/18at 05:42; Start 12/30/17 at 12:00 Cephalexin HCl (Keflex) 500 mg QID PO Last administered on 12/31/17at 21:54; Start 12/31/17 at 13:00 Lisinopril (Prinivil) 20 mg DAILY PO Last administered on 12/31/17at 16:51; Start 12/31/17 at 14:30 Active Scripts Active Vitals/I & O Vital Sign - Last 24 Hours 12/31/17 12/31/17 12/31/17 12/31/17 11:00 15:00 16:51 19:00 Temp 98.0 97.9 97.5 98.0 97.9 97.5 Pulse 78 80 80 68 Resp 18 18 18 B/P (MAP) 159/90 (113) 145/91 (109) 145/91 144/87 (106) Pulse Ox 97 96 97 O2 Delivery Room Air Room Air Room Air 12/31/17 01/01/18 23:00 03:00 Temp 97.8 98.6 97.8 98.6 Pulse 61 61 Resp 18 18 B/P (MAP) 121/64 (83) 133/73 (93) Pulse Ox 97 97 O2 Delivery Room Air Room Air Intake and Output 12/31/17 12/31/17 01/01/18 15:00 23:00 07:00 Intake Total 360 ml 180 ml Balance 360 ml 180 ml POWER MORRELL MD Jan 01, 2018 08:06
[2018-01-01] MEDS: LACTOBACILLUS RHAMNOSUS GG 1 CAPSULE. PO SCH ×2 (08:22→20:22)
[2018-01-01] MEDS: IBUPROFEN 400 MG TABLET. PO PRN (08:23)
[2018-01-01 11:00] VITALS: BP 130/68
[2018-01-01] MEDS: CEPHALEXIN 250 MG CAPSULE. PO SCH ×4 (12:12→20:22)
[2018-01-01] MEDS: LISINOPRIL 20 MG TABLET PO SCH (12:12)
[2018-01-01 15:00] VITALS: BP 138/94
[2018-01-01] MEDS: ENOXAPARIN 40 MG/0.4 ML SYRINGE. SQ SCH (18:44)
[2018-01-01 19:00] VITALS: BP 131/66
[2018-01-01 23:00] VITALS: BP 123/74
[2018-01-02] MEDS: hydrOXYzine 10 MG TABLET PO SCH ×3 (00:14→13:08)
[2018-01-02 03:00] VITALS: BP 121/70
[2018-01-02 07:00] VITALS: BP 144/78
--- NOTE | 2018-01-02 08:06 | PDOC ---
PROGRESS NOTES Chief Complaint Chief Complaint left upper and lower itchy skin rash suspicious hyperactivity with eosinophilia recent Left lower extremity cellulitis, left upper ext cellulitis Possibly undiagnosed psoriasis Multiple petechia right upper extremity, right lower extremity Self-pay History sepsis with negative blood cultures History of Present Illness History of Present Illness Admitted with intensely pruritic rash on left side of his body s/p derm biopsy. Improved with topical, systemic treatment. Keflex per ID on 12/31/17 ROS: no fever, chills, sob or chest pain left forearm, left leg swelling, erythema slightly better on leg , but worse on left forearm left upper and lower itchy skin rash suspicious hyperactivity with eosinophilia recent Left lower extremity cellulitis, left upper ext cellulitis Possibly undiagnosed psoriasis Multiple petechia right upper extremity, right lower extremity Self-pay History sepsis with negative blood cultures plan; fu with id, derm bx done dced ceftriaxone as per ID, keflex restarted add hydroxyzine q6h as per derm, check stool o and p benadryl prn dvt ppx dc today pt has no insurance, should fu with DERM for path. Prednisone taper with keflex Vitals Vitals Vital Signs Date Time Temp Pulse Resp B/P (MAP) Pulse Ox O2 Delivery O2 Flow Rate FiO2 01/02/18 03:00 98.6 65 20 121/70 (87) 96 Room Air 98.6 Physical Exam Physical Exam GENERAL: The patient is lying down, resting quietly HEENT: Normal conjunctivae. Oral mucosa is pink and moist. NECK: Supple. LUNGS: Clear to auscultation. HEART: S1 and S2. ABDOMEN: Bowel sounds active, soft, nontender. EXTREMITIES: Trace edema in lower extremities bilaterally. SKIN: He has a rash with dry scaling localized to left upper extremities and lower extremities NEUROLOGIC: Alert and oriented times 3. General: Alert, Oriented X3, Cooperative, No acute distress Abdomen: Normal bowel sounds, Soft, No tenderness, No hepatosplenomegaly, No masses Extremities: Other (a petechial barbara Multiple petecchiae in the right upper extremity, right lower extremity-he is significant scaling on the left upper and left lower extremity with some redness and mild to moderate swelling) Skin: Other (refer to above) Assessment and Plan Assessmemt and Plan Problems Medical Problems: (1) Hypertension Status: Acute (2) Pruritic erythematous rash Status: Acute (3) UTI (urinary tract infection) Status: Acute Comment Review of Relevant I have reviewed the following items alem (where applicable) has been applied. Labs Laboratory Tests Test 01/01/18 04:05 01/01/18 04:15 White Blood Count 11.8 x10^3/uL (4.0-11.0) Red Blood Count 4.83 x10^6/uL (4.30-5.70) Hemoglobin 14.9 g/dL (13.0-17.5) Hematocrit 43.6 % (39.0-53.0) Mean Corpuscular Volume 90 fL (79-100) Mean Corpuscular Hemoglobin 31 pg (25-35) Mean Corpuscular Hemoglobin Concent 34 g/dL (31-37) Red Cell Distribution Width 13.9 % (11.5-14.5) Platelet Count 356 x10^3/uL (140-400) Neutrophils (%) (Auto) 41 % (31-73) Lymphocytes (%) (Auto) 40 % (24-48) Monocytes (%) (Auto) 7 % (0-9) Eosinophils (%) (Auto) 10 % (0-3) Basophils (%) (Auto) 1 % (0-3) Neutrophils # (Auto) 4.9 x10^3uL (1.8-7.7) Lymphocytes # (Auto) 4.8 x10^3/uL (1.0-4.8) Monocytes # (Auto) 0.9 x10^3/uL (0.0-1.1) Eosinophils # (Auto) 1.2 x10^3/uL (0.0-0.7) Basophils # (Auto) 0.2 x10^3/uL (0.0-0.2) Sodium Level 144 mmol/L (136-145) Potassium Level 3.8 mmol/L (3.5-5.1) Chloride Level 107 mmol/L (98-107) Carbon Dioxide Level 26 mmol/L (21-32) Anion Gap 11 (6-14) Blood Urea Nitrogen 23 mg/dL (8-26) Creatinine 0.9 mg/dL (0.7-1.3) Estimated GFR (Cockcroft-Gault) 91.3 Glucose Level 81 mg/dL (70-99) Calcium Level 8.9 mg/dL (8.5-10.1) Microbiology 12/28/17 Blood Culture - Preliminary, Resulted NO GROWTH AFTER 4 DAYS 12/27/17 Urine Culture - Final, Complete 12/27/17 Urine Culture Result 1 (LEDY) - Final, Complete 12/27/17 Antimicrobic Susceptibility - Final, Complete Medications Current Medications Diphenhydramine HCl (Benadryl) 25 mg 1X ONCE IVP ; Start 12/27/17 at 21:30; Stop 12/27/17 at 21:31; Status Cancel Sodium Chloride 1,000 ml @ 1,000 mls/hr 1X ONCE IV Last administered on 12/27at 22:02; Start 12/27/17 at 21:30; Stop 12/27/17 at 22:29; Status DC Diphenhydramine HCl (Benadryl) 50 mg 1X ONCE PO Last administered on at 22:02; Start 12/27/17 at 22:15; Stop 12/27/17 at 22:16; Status DC Dexamethasone Sodium Phosphate (Decadron) 10 mg 1X ONCE IV Last administered on 12/28/17at 00:06; Start 12/27/17 at 23:30; Stop 12/27/17 at 23:31; Status DC Ondansetron HCl (Zofran) 4 mg PRN Q8HRS PRN IV NAUSEA/VOMITING 1ST CHOICE; Start 12/27/17 at 23:30; Stop 12/28/17 at 08:29; Status DC Acetaminophen (Tylenol) 650 mg PRN Q4HRS PRN PO FEVER Last administered on at 08:38; Start 12/27/17 at 23:30; Stop 12/28/17 at 23:29; Status DC Labetalol HCl (Normodyne Iv Push) 10 mg 1X ONCE IVP Last administered on 12/28at 00:07; Start 12/28/17 at 00:00; Stop 12/28/17 at 00:01; Status DC Pharmacy Consult (C.diff Med Screen By Rx) 1 each 1X ONCE [facility] ; Start 12/28/17 at 02:15; Stop 12/28/17 at 02:18; Status DC Ondansetron HCl (Zofran) 4 mg PRN Q6HRS PRN IV NAUSEA/VOMITING 1ST CHOICE; Start 12/28/17 at 08:30 Celecoxib (CeleBREX) 100 mg BIDWMEALS PO Last administered on 12/28/17at 08:38 ; Start 12/28/17 at 09:00; Stop 12/28/17 at 10:27; Status DC Labetalol HCl (Normodyne Iv Push) 20 mg PRN Q2HR PRN IVP HYPERTENSION, SEE COMMENTS; Start 12/28/17 at 08:30 Ceftriaxone Sodium 1 gm/ Dextrose 50 ml @ 100 mls/hr 1X ONCE IV ; Start 12/28 at 10:30; Stop 12/28/17 at 10:59; Status UNV Calcipotriene (Dovonex) 1 radha BID TP Last administered on 12/31/17at 10:14; Start 12/28/17 at 21:00; Stop 12/31/17 at 11:42; Status DC Ibuprofen (Motrin) 400 mg PRN Q6HRS PRN PO INFLAMMATION Last administered on at 08:23; Start 12/28/17 at 10:30 Ceftriaxone Sodium 50 ml @ 100 mls/hr 1X ONCE IV ; Start 12/28/17 at 10:30; Stop 12/28/17 at 10:59; Status Cancel Ciprofloxacin (Cipro) 500 mg BID PO ; Start 12/28/17 at 12:00; Stop 12/28/17 at 12:00; Status DC Doxycycline Hyclate (Vibra-Tab) 100 mg BID PO ; Start 12/28/17 at 12:00; Stop 12/28/17 at 12:00; Status DC Ceftriaxone Sodium (Rocephin) 1 gm ONCE@1130 ONCE IVP ; Start 12/28/17 at 11: 30; Stop 12/28/17 at 11:31; Status DC Ceftriaxone Sodium 1 gm/ Dextrose 50 ml @ 100 mls/hr Q24H IV ; Start 12/28/17 at 11:00; Status UNV Ceftriaxone Sodium (Rocephin) 1 gm Q24H IVP Last administered on 12/29/17at 13: 05; Start 12/28/17 at 12:00; Stop 12/30/17 at 10:47; Status DC Lactobacillus Rhamnosus (Culturelle) 1 cap BID PO Last administered on at 20:22; Start 12/28/17 at 21:00 Acetaminophen (Tylenol) 650 mg PRN Q6HRS PRN PO FEVER; Start 12/29/17 at 15:15 Ondansetron HCl (Zofran) 4 mg PRN Q6HRS PRN IV NAUSEA/VOMITING; Start at 15:15; Status UNV Morphine Sulfate (Morphine Sulfate) 2 mg PRN Q2HR PRN IV MODERATE TO SEVERE PAIN; Start 12/29/17 at 15:15 Tramadol HCl (Ultram) 50 mg PRN Q6HRS PRN PO MILD TO MODERATE PAIN Last administered on 01/01/18at 20:22; Start 12/29/17 at 15:15 Docusate Sodium (Colace) 100 mg PRN DAILY PRN PO CONSTIPATION; Start 12/29/17 at 15:15 Diphenhydramine HCl (Benadryl) 25 mg PRN Q6HRS PRN PO ITCHING Last administered on 01/01/18at 20:22; Start 12/29/17 at 15:30 Enoxaparin Sodium (Lovenox 40mg Syringe) 40 mg Q24H SQ Last administered on 01/01/18at 18:44; Start 12/29/17 at 16:00 Hydroxyzine HCl (Atarax) 10 mg Q6HRS PO Last administered on 01/02/18at 06:05; Start 12/30/17 at 12:00 Cephalexin HCl (Keflex) 500 mg QID PO Last administered on 01/01/18at 20:22; Start 12/31/17 at 13:00 Lisinopril (Prinivil) 20 mg DAILY PO Last administered on 01/01/18at 12:12; Start 12/31/17 at 14:30 Active Scripts Active Vitals/I & O Vital Sign - Last 24 Hours 01/01/18 01/01/18 01/01/18 01/01/18 11:00 12:12 15:00 19:00 Temp 98.2 97.6 98.6 98.2 97.6 98.6 Pulse 67 60 73 61 Resp 18 20 20 B/P (MAP) 130/68 (88) 127/68 138/94 (109) 131/66 (87) Pulse Ox 97 97 97 O2 Delivery Room Air Room Air Room Air 01/01/18 01/01/18 01/01/18 01/01/18 20:00 20:22 21:22 23:00 Temp 98.6 98.6 Pulse 67 Resp 20 B/P (MAP) 123/74 (90) Pulse Ox 97 97 98 O2 Delivery Room Air Room Air Room Air Room Air 01/02/18 03:00 Temp 98.6 98.6 Pulse 65 Resp 20 B/P (MAP) 121/70 (87) Pulse Ox 96 O2 Delivery Room Air Intake and Output 01/01/18 01/01/18 01/02/18 15:00 23:00 07:00 Intake Total 440 ml 220 ml Balance 440 ml 220 ml POWER MORRELL MD Jan 02, 2018 08:06
[2018-01-02] MEDS: diphenhydrAMINE HCL 25 MG CAPSULE PO PRN (10:25)
[2018-01-02] MEDS: CEPHALEXIN 250 MG CAPSULE. PO SCH ×2 (10:26→13:08)
[2018-01-02] MEDS: LACTOBACILLUS RHAMNOSUS GG 1 CAPSULE. PO SCH (10:26)
[2018-01-02] MEDS: LISINOPRIL 20 MG TABLET PO SCH (10:27)
[2018-01-02 11:00] VITALS: BP 135/75
[2018-01-02 12:16] VITALS: BP 135/75
--- NOTE | 2018-01-02 13:43 | PDOC3 ---
Discharge Summary Visit Information Date of Admission: Dec 27, 2017 Date of Discharge: Jan 02, 2018 Admitting Diagnosis: Erythematous rash Final Diagnosis Problems Medical Problems: (1) Hypertension Status: Acute (2) Pruritic erythematous rash Status: Acute (3) UTI (urinary tract infection) Status: Acute Brief Hospital Course Allergies Allergies Coded Allergies Type Severity Reaction Last Updated Verified No Known Drug Allergies 08/18/13 No Vital Signs Vital Signs Date Time Temp Pulse Resp B/P (MAP) Pulse Ox O2 Delivery O2 Flow Rate FiO2 01/02/18 12:16 98.3 69 18 135/75 (95) 98 Room Air 98.3 Lab Results Laboratory Tests Test 01/01/18 04:05 01/01/18 04:15 White Blood Count 11.8 x10^3/uL (4.0-11.0) Red Blood Count 4.83 x10^6/uL (4.30-5.70) Hemoglobin 14.9 g/dL (13.0-17.5) Hematocrit 43.6 % (39.0-53.0) Mean Corpuscular Volume 90 fL (79-100) Mean Corpuscular Hemoglobin 31 pg (25-35) Mean Corpuscular Hemoglobin Concent 34 g/dL (31-37) Red Cell Distribution Width 13.9 % (11.5-14.5) Platelet Count 356 x10^3/uL (140-400) Neutrophils (%) (Auto) 41 % (31-73) Lymphocytes (%) (Auto) 40 % (24-48) Monocytes (%) (Auto) 7 % (0-9) Eosinophils (%) (Auto) 10 % (0-3) Basophils (%) (Auto) 1 % (0-3) Neutrophils # (Auto) 4.9 x10^3uL (1.8-7.7) Lymphocytes # (Auto) 4.8 x10^3/uL (1.0-4.8) Monocytes # (Auto) 0.9 x10^3/uL (0.0-1.1) Eosinophils # (Auto) 1.2 x10^3/uL (0.0-0.7) Basophils # (Auto) 0.2 x10^3/uL (0.0-0.2) Sodium Level 144 mmol/L (136-145) Potassium Level 3.8 mmol/L (3.5-5.1) Chloride Level 107 mmol/L (98-107) Carbon Dioxide Level 26 mmol/L (21-32) Anion Gap 11 (6-14) Blood Urea Nitrogen 23 mg/dL (8-26) Creatinine 0.9 mg/dL (0.7-1.3) Estimated GFR (Cockcroft-Gault) 91.3 Glucose Level 81 mg/dL (70-99) Calcium Level 8.9 mg/dL (8.5-10.1) Brief Hospital Course Admitted with intensely pruritic rash on left side of his body s/p derm biopsy. Improved with topical, systemic treatment. Keflex per ID on 12/31/17 ROS: no fever, chills, sob or chest pain left forearm, left leg swelling, erythema slightly better on leg , but worse on left forearm left upper and lower itchy skin rash suspicious hyperactivity with eosinophilia recent Left lower extremity cellulitis, left upper ext cellulitis Possibly undiagnosed psoriasis Multiple petechia right upper extremity, right lower extremity Self-pay History sepsis with negative blood cultures plan; fu with id, derm bx done dced ceftriaxone as per ID, keflex restarted add hydroxyzine q6h as per derm, check stool o and p benadryl prn dvt ppx dc today pt has no insurance, should fu with DERM for path. Prednisone taper with keflex Discharge Information Condition at Discharge: Improved Follow Up: Weeks (1) Disposition/Orders: D/C to Home Scheduled Cephalexin (Cephalexin) 250 Mg Capsule, 500 MG PO QID for UTI, cellulitis for 4 Days, #32 Prescribed by: POWER MORRELL MD on 01/02/18 1347 Lactobacillus Rhamnosus Gg (Culturelle) 1 Each Cap.sprink, 1 CAP PO BID for Cellulitis for 4 Days, #8 Prescribed by: POWER MORRELL MD on 01/02/18 1347 Lisinopril (Lisinopril) 40 Mg Tablet, 20 MG PO DAILY for HTN for 30 Days, #15 Prescribed by: POWER MORRELL MD on 01/02/18 1347 Prednisone (Prednisone) 20 Mg Tablet, 1 TAB PO DAILY for pruritis for 5 Days, #5 Prescribed by: POWER MORRELL MD on 01/02/18 1347 Scheduled PRN Diphenhydramine Hcl (Benadryl) 25 Mg Capsule, 25 MG PO PRN Q6HRS PRN for ITCHING for 30 Days, #120 Prescribed by: POWER MORRELL MD on 01/02/18 1347 POWER MORRELL MD Jan 02, 2018 13:43
[2018-01-02] MEDS ORDERED: PRED20TA PO (13:47)
[2018-01-02] MEDS ORDERED: LACT1CAP19 PO (13:47)
[2018-01-02] MEDS ORDERED: CEPH250C PO (13:47)
[2018-01-02] MEDS ORDERED: LISI-130 PO (13:47)
[2018-01-02] MEDS ORDERED: DIPH25CA58 PO (13:47)
[2018-01-02 15:40] VITALS: BP 131/81
== END 2018-01-02 16:25 | disposition home or self-care (01) | DRG 813 ==
LOC: ER 20:34 → 5 NORTH 23:33
PROVIDERS: ADMIT Internal Medicine; ATTEND Internal Medicine
PROC: 0HBEXZX Excision of Left Lower Arm Skin, External Approach, Diagnostic (ICD-10-PCS; principal; 2017-12-29)
DX: R23.3 Spontaneous ecchymoses (principal); N39.0 Urinary tract infection, site not specified; L03.116 Cellulitis of left lower limb; L03.114 Cellulitis of left upper limb; L29.9 Pruritus, unspecified; L53.9 Erythematous condition, unspecified; I10 Essential (primary) hypertension; J44.9 Chronic obstructive pulmonary disease, unspecified; F41.9 Anxiety disorder, unspecified; F17.210 Nicotine dependence, cigarettes, uncomplicated; D72.1 Eosinophilia; B95.61 Methicillin susceptible Staphylococcus aureus infection as the cause of diseases classified elsewhere
CPT/HCPCS: 36415; 80048; 80053; 81001; 83605; 83735; 85007; 85025; 85610; 85651; 85730; 86140; 86592; 87040; 87086; 87186; 88305; 88312; 93971; 96361; 96374; 96375; 99406; J0696; J1100; J1650; J3490; J7030; Q0163; 99285-25